=== PATIENT | female | born 1955 | race Caucasian/White ===

== ENCOUNTER → 2017-10-01 10:07 | Outpatient (CLI) | payer MEDICARE, MEDICAID, SELFPAY ==
[2017-10-01 11:21] LABS: Alanine Aminotransferase 25 U/L (12-78); Albumin/Globulin Ratio 1.3 (1.1-1.8); Alkaline Phosphatase 67 U/L (46-116); Aspartate Amino Transferase 11 U/L (15-37); Bilirubin,Total 0.4 mg/dL (0.2-1.0); Blood Urea Nitrogen 14 mg/dL (7-18); Calcium 9.4 mg/dL (8.5-10.1); Carbon Dioxide 29 mmol/L (21.0-32.0); Chloride 106 mmol/L (98-107); Chol/HDL Ratio 2.3 (1-3.5); Cholesterol 165 mg/dL (140-200); Creatinine,Serum 0.67 mg/dL (0.55-1.02); Estimated Glomerular Filt Rate 89 ml/min (>60); GFR (African American) 108 ML/MIN (>60); Globulin 3.2 gm/dl (1.3-3.2); Glucose 100 mg/dL (74-106); HDL Cholesterol 72 mg/dL (29-89); LDL Cholesterol 56 mg/dL (0-130); Sodium 143 mmol/L (136-145); Thyroid Stimulating Hormone 4.87 uIU/ml (0.358-3.740); Total Protein,Serum 7.2 gm/dL (6.4-8.2); Triglycerides 183 mg/dL (30-200); VLDL Cholesterol 37 mg/dL (0-40)
== END ==
PROVIDERS: PCP Pain Medicine Interventional Pain Medicine; Visit Provider Physician Assistant
DX: E78.5 Hyperlipidemia, unspecified (principal); I25.10 Atherosclerotic heart disease of native coronary artery without angina pectoris
CPT/HCPCS: 36415; 80053; 80061; 84443

== ENCOUNTER → 2018-05-08 09:27 | Outpatient (CLI) | payer MEDICARE, MEDICAID, SELFPAY ==
--- NOTE | 2018-05-08 09:36 | CI_ITS ---
Cerebrovascular Exam Indications: 433.10 Occlusion/stenosis of carotid artery without cerebral infarction. IMPRESSIONS 1. The bilateral vertebral arteries are patent with normal antegrade flow. 2. Study suggests 20-49%(LOWER END OF SCALE)stenosis involving the right internal carotid artery. 3. Study suggests less than 20% stenosis involving the left internal carotid artery. Disease progression from the study of 10-Jul-2016. Labs, prior tests, procedures, and surgery: Left endarterectomy. Labs, prior tests, procedures, and surgery: Left endarterectomy. Carotid duplex study. Complete study and Doppler flow study including spectral analysis, color and ko scale imaging. Location: Vascular laboratory. Patient status: Outpatient. Tables: Arterial flow: + +--------+--------+ Location V jacqueline V ed + +--------+--------+ Right CCA - proximal 88cm/s 23.6cm/s + +--------+--------+ Right CCA - distal 91.1cm/s 29.9cm/s + +--------+--------+ Right ECA 81.7cm/s -------- + +--------+--------+ Right ICA - proximal 91.1cm/s 25.9cm/s + +--------+--------+ Right ICA - mid 123cm/s 33cm/s + +--------+--------+ Right ICA - distal 85.6cm/s 29.9cm/s + +--------+--------+ Right vertebral 51.1cm/s -------- + +--------+--------+ Left CCA - proximal 99cm/s 29.9cm/s + +--------+--------+ Left CCA - distal 92.7cm/s 31.4cm/s + +--------+--------+ Left ECA 49.5cm/s -------- + +--------+--------+ Left ICA - proximal 56.6cm/s 16.5cm/s + +--------+--------+ Left ICA - mid 77.8cm/s 27.5cm/s + +--------+--------+ Left ICA - distal 84.9cm/s 31.4cm/s + +--------+--------+ Left vertebral 50.3cm/s -------- + +--------+--------+ Velocity ratios: + + + + + + Right, V sys Right, V ed Left, V sys Left, V ed + + + + + + Max ICA/dist CCA 1.35 1.1 0.92 1 + + + + + + (Report amended ) Electronically signed by: Armando Menendez [id number]
== END ==
PROVIDERS: Family Provider Family Medicine; PCP Family Medicine; Visit Provider Physician Assistant
DX: I65.23 Occlusion and stenosis of bilateral carotid arteries (principal)
CPT/HCPCS: 93880

== ENCOUNTER → 2018-05-12 10:56 | Outpatient (CLI) | payer MEDICARE, MEDICAID, SELFPAY ==
[2018-05-12 13:18] LABS: Alanine Aminotransferase 19 U/L (12-78); Albumin/Globulin Ratio 1.3 (1.1-1.8); Alkaline Phosphatase 63 U/L (46-116); Anion Gap 13.2 mEq/L (5-15); Aspartate Amino Transferase 10 U/L (15-37); Bilirubin,Total 0.4 mg/dL (0.2-1.0); Blood Urea Nitrogen 15 mg/dL (7-18); Calcium 9.5 mg/dL (8.5-10.1); Carbon Dioxide 29 mmol/L (21.0-32.0); Chloride 104 mmol/L (98-107); Chol/HDL Ratio 2.5 (1-3.5); Cholesterol 184 mg/dL (140-200); Estimated Glomerular Filt Rate 85 ml/min (>60); GFR (African American) 102 ML/MIN (>60); Globulin 3.1 gm/dl (1.3-3.2); Glucose 89 mg/dL (74-106); HDL Cholesterol 73 mg/dL (29-89); LDL Cholesterol 72 mg/dL (0-130); Potassium 4.2 mmoL/L (3.5-5.1); Sodium 142 mmol/L (136-145); Thyroid Stimulating Hormone 3.16 uIU/ml (0.358-3.740); Total Protein,Serum 7.1 gm/dL (6.4-8.2); Triglycerides 195 mg/dL (30-200); VLDL Cholesterol 39 mg/dL (0-40)
== END ==
PROVIDERS: PCP Family Medicine; Visit Provider Physician Assistant
DX: I25.10 Atherosclerotic heart disease of native coronary artery without angina pectoris (principal); I10 Essential (primary) hypertension; E78.5 Hyperlipidemia, unspecified; I45.81 Long QT syndrome
CPT/HCPCS: 36415; 80053; 80061; 83735; 84443; 93005

== ENCOUNTER → 2018-07-29 12:55 | Outpatient (CLI) | payer MEDICARE, MEDICAID, SELFPAY | PROVIDERS: Visit Provider Physician Assistant | DX: I25.10 Atherosclerotic heart disease of native coronary artery without angina pectoris (principal) | CPT/HCPCS: 93005 ==

== ENCOUNTER → 2019-04-06 10:27 | Outpatient (CLI) | payer MEDICARE, SELFPAY ==
--- NOTE | 2019-04-06 10:34 | XR_ITS ---
PROCEDURE: XR CHEST 2V CLINICAL HISTORY: S/P FALL, RT RIB PAIN COMPARISON: CXR CHEST(2 VIEWS-NOT PORTABLE) from 09/27/2015 CXR CHEST(2 VIEWS-NOT PORTABLE) from 08/03/2016 CXR CHEST(2 VIEWS-NOT PORTABLE) from 09/20/2016 XR RIBS RT 2V from 04/06/2019 FINDINGS: The cardiomediastinal silhouette and pulmonary vascularity are within normal limits. There are cluster of calcified nodules in the right lung base which are unchanged. No lobar consolidation or collapse. No evidence of pneumothorax No acute bony abnormalities. IMPRESSION: No acute findings. Dictated by: Armando Menendez MD 04/06/2019 10:59 Signed by: <Electronically signed by Armando Menendez MD in [place]> 04/06/2019 10:59
--- NOTE | 2019-04-06 10:34 | XR_ITS ---
PROCEDURE: XR RIBS RT 2V CLINICAL INDICATION: Chest pain, recent fall with injury and pain COMPARISON: No exams were available for comparison FINDINGS: A frontal view of the chest shows no acute finding. Multiple views of the right ribs were obtained. No acute findings. Surgical clips are present in the left neck. There are coronary artery stents noted IMPRESSION: No acute findings. Dictated by: Armando Menendez MD 04/06/2019 10:58 Signed by: <Electronically signed by Armando Menendez MD in [place]> 04/06/2019 11:00
== END ==
PROVIDERS: PCP Family Medicine; Visit Provider Family Medicine
DX: R07.81 Pleurodynia (principal); W19.XXXA Unspecified fall, initial encounter
CPT/HCPCS: 71046; 71100

== ENCOUNTER → 2019-07-14 12:20 | Outpatient (CLI) | payer OTHER, SELFPAY ==
--- NOTE | 2019-07-14 12:30 | XR_ITS ---
PROCEDURE: XR HUMERUS RT CLINICAL INDICATION: RT humerus fracture; do NOT remove brace COMPARISON: No exams were available for comparison FINDINGS: There is a comminuted fracture of the mid shaft the humerus with moderate valgus angulation at the fracture site. There is a small butterfly fragment sitting at the apex of the angulated fracture. There is a semiopaque cast around the dual fracture fragment. There is healthy callus formation at the fracture site suggesting this is a non recent fracture or possibly fracture through a previous fracture site. The humeral head appears intact and the supracondylar humerus appear normal. IMPRESSION: Comminuted angulated fracture mid shaft right humerus Dictated by: Dr. Mann Lopez MD 07/14/2019 17:[address] Mann Lopez MD in [place] 07/14/2019 17:37
== END ==
PROVIDERS: PCP Family Medicine; Visit Provider Orthopaedic Surgery
DX: S42.301A Unspecified fracture of shaft of humerus, right arm, initial encounter for closed fracture (principal)
CPT/HCPCS: 73060

== ENCOUNTER → 2019-07-21 14:03 | Outpatient (CLI) | payer OTHER, SELFPAY ==
--- NOTE | 2019-07-21 14:10 | XR_ITS ---
PROCEDURE: XR HUMERUS RT CLINICAL INDICATION: humerus fracture fu IN SPLINT Follow-up fracture COMPARISON: XR HUMERUS RT from 07/02/2019 XR HUMERUS RT from 07/14/2019 FINDINGS: There is a healing mid shaft humeral fracture. Developing callus formation is noted. There is minimal lateral angulation and minimal medial displacement of the distal fracture fragment. IMPRESSION: Healing mid shaft humeral fracture Dictated by: Armando Menendez MD 07/21/2019 15:46 Electronically signed by Armando Menendez MD in [place] 07/21/2019 15:46
== END ==
PROVIDERS: PCP Family Medicine; Visit Provider Orthopaedic Surgery
DX: S42.301A Unspecified fracture of shaft of humerus, right arm, initial encounter for closed fracture (principal)
CPT/HCPCS: 73060

== ENCOUNTER → 2019-08-16 12:57 | Outpatient (CLI) | payer OTHER, SELFPAY ==
--- NOTE | 2019-08-16 13:06 | XR_ITS ---
PROCEDURE: XR HUMERUS RT CLINICAL INDICATION: right humerus fracture, out of brace Follow-up fracture COMPARISON: XR HUMERUS RT from 07/02/2019 XR HUMERUS RT from 07/14/2019 XR HUMERUS RT from 07/21/2019 FINDINGS: There is a healing mid shaft humeral fracture with developing callus formation. There is slight increase in dorsal and medial angulation of the distal fracture fragment. Fracture line is still visible. No significant displacement. IMPRESSION: Increasing callus formation of the midshaft humeral fracture with some increase in dorsal and medial angulation of the distal fracture fragment Dictated by: Armando Menendez MD 08/16/2019 19:55 Electronically signed by Armando Menendez MD in [place] 08/16/2019 19:55
== END ==
PROVIDERS: PCP Family Medicine; Visit Provider Orthopaedic Surgery
DX: S42.301A Unspecified fracture of shaft of humerus, right arm, initial encounter for closed fracture (principal)
CPT/HCPCS: 73060

== ENCOUNTER → 2019-10-06 13:49 | Outpatient (CLI) | payer OTHER, SELFPAY ==
--- NOTE | 2019-10-06 13:54 | XR_ITS ---
PROCEDURE: XR HUMERUS RT CLINICAL INDICATION: right humerus fracture fu COMPARISON: XR HUMERUS RT from 07/02/2019 XR HUMERUS RT from 07/14/2019 XR HUMERUS RT from 07/21/2019 XR HUMERUS RT from 08/16/2019 FINDINGS: Midshaft humeral fracture is once again noted. The fracture is nondisplaced. There is prominent callus formation about the fracture site. There is mild medial angulation of the distal fracture fragment not significantly changed. Other findings:None. IMPRESSION: No change healing mid shaft humeral fracture with medial angulation of the distal fracture fragment Dictated by: Armando Menendez MD 10/06/2019 15:49 Electronically signed by Armando Menendez MD in [place] 10/06/2019 15:49
== END ==
PROVIDERS: PCP Family Medicine; Visit Provider Orthopaedic Surgery
DX: S42.301A Unspecified fracture of shaft of humerus, right arm, initial encounter for closed fracture (principal)
CPT/HCPCS: 73060

== ENCOUNTER → 2020-05-30 12:12 | Outpatient (CLI) | payer MEDICARE, SELFPAY ==
--- NOTE | 2020-05-30 12:25 | XR_ITS ---
PROCEDURE: XR CERVICAL SPINE 5V CLINICAL INDICATION: LT SIDE NECK PAIN COMPARISON: No exams were available for comparison FINDINGS: There is mild diffuse levo scoliotic curvature of the cervical thoracic junction. C1 through C7 appear intact. There is mild anterior osteophytic spurring at the C5-6 and C6-7 levels with mild disc space narrowing at C5-6 level. Oblique films show mild neural foraminal narrowing at the C5-6 level right-side likely secondary to spurring of the uncinate joints. There are several surgical clips just lateral to the mid cervical spine left side. The prevertebral soft tissues are normal and the odontoid is normal. IMPRESSION: Mild degenerate disc disease C5-6 and C6-7 with mild neural foraminal narrowing right-sided C5-6 Dictated by: Dr. Mann Lopez MD 05/30/2020 12:53 Dr. Mann Lopez MD in [place] 05/30/2020 12:53
== END ==
PROVIDERS: PCP Family Medicine; Visit Provider Family Medicine
DX: M54.2 Cervicalgia (principal)
CPT/HCPCS: 72050

== ENCOUNTER → 2022-12-18 09:48 | Outpatient (CLI) | payer MEDICARE, SELFPAY ==
--- NOTE | 2022-12-18 09:53 | MM_ITS ---
PROCEDURE INFORMATION: Exam: MG Bilateral Screening 3D Mammography Exam date and time: 12/18/2022 9:54 AM Age: 66 years old Clinical indication: Screening examination TECHNIQUE: Imaging protocol: Bilateral Screening tomosynthesis and 2D mammography including computer-aided detection (CAD) when performed. COMPARISON: 1. MG SCREENING MAMMO DIGITAL W/ CAD 02/28/2016 11:30 AM 2. MG UTE BILATERAL SCREENING 02/28/2016 11:30 AM FINDINGS: MAMMOGRAPHY: Breast composition: There are scattered areas of fibroglandular density. Mass: None. Architectural distortion: None. Calcifications: No suspicious calcifications. Asymmetric density: None. Skin thickening: None. Axillary adenopathy: None. IMPRESSION: No mammographic evidence of malignancy. Annual screening is recommended unless otherwise clinically indicated. ASSESSMENT: BI-RADS Category 1: Negative
== END ==
PROVIDERS: PCP Family Medicine; Visit Provider Family Medicine
DX: Z12.31 Encounter for screening mammogram for malignant neoplasm of breast (principal)
CPT/HCPCS: 77063; 77067

== ENCOUNTER 2023-01-03 10:42 | Emergency (ER) | payer MEDICARE, SELFPAY ==
[2023-01-03 11:00] VITALS: BP 122/83; PULSE 61; RESP 17; TEMP 36.7; O2SAT 98; BMI 21.0
--- NOTE | 2023-01-03 11:02 | XR_ITS ---
FINAL REPORT CLINICAL HISTORY: SPLINTER IN THE BOTTOM OF GREAT TOE COMPARISON: None FINDINGS: Left foot: Three views of the left foot were obtained. There is no acute fracture or dislocation. The joint spaces are intact. There is no soft tissue abnormality. Mild degenerative changes are noted. No evidence of a radiopaque foreign body is noted. IMPRESSION: No acute bony abnormality. Reviewed, Interpreted and Dictated by Joseph Prado III, MD Transcribed by Zoë Mauro Authenticated and [facility]
--- NOTE | 2023-01-03 12:03 | EXP.UTC ---
Discharge Plan Disposition Patient Disposition: Home, Self-Care Condition: Good Prescriptions Prescriptions: New ciprofloxacin HCl [Cipro] 500 mg tablet 500 mg PO BID Qty: 10 0RF No Action hydrocodone-acetaminophen 5-325 mg tablet 1 tab PO Q4-6H PRN (Reason: pain) Qty: 30 0RF nitroglycerin 0.4 MG tablet, sublingual 0.4 mg PO Q5MINP PRN (Reason: Angina) aspirin 81 MG tablet,chewable 81 mg PO DAILY diltiazem HCl 120 capsule,extended release 24hr 120 mg PO DAILY Label Comments: ezetimibe 10 tablet 10 mg PO DAILY Label Comments: rosuvastatin 20 MG tablet 20 mg PO DAILY ranolazine 1,000 tablet extended release 12 hr 1,000 mg PO DAILY Label Comments: coenzyme Q10 50 MG tablet,chewable 50 mg PO DAILY Referrals Follow up/Referrals: Stewart Lanza MD [Primary Care Provider] - See instructions Activity Restrictions/Add. Instructions Additional Instructions/Restrictions: Keep clean and dry Monitor for signs of infection F/U with Dr Lanza Clinical Impressions Clinical Impression: Splinter of toe of left foot Instructions Patient Instructions: DI for Splinter Removal Discharge ED Provider: Shayna Barnes [facility] HPI General Stated complaint: AO 01/02 possible splinter in left big toe Mode of Arrival: Ambulatory Source of Information: Patient Limitations: No Limitations Time Seen by Provider: 01/03/23 12:03 Description of Symptoms (Recalled from Triage Doc. by RN): PATIENT C/O LARGE WOODEN SPLINTER IN LEFT GREAT TOE LAST NIGHT HEENT Symptoms (Recalled from RN notes): No Resp Symptoms (Recalled from RN notes): No Skin Symptoms (Recalled from RN notes): Yes MS Symptoms (Recalled from RN notes): No Functional Status (Recalled from RN notes): WNL History of Present Illness Provider Complaint: Patient was walking on deck last night and got a splinter in the bottom of her big toe. She was unable to get it out at home. It is painful. It is not bleeding and does not appear to be infected. She is not diabetic. Onset (ago): day(s) Location: left and lower extremity Radiation: non-radiation Severity: mild Severity scale (1-10): 2 Quality: burning Consistency: constant Relieving factors: none Exacerbating factors: none Associated symptoms: denies other symptoms Treatments prior to arrival: none Related Data Home Medications Medication Instructions Recorded Confirmed aspirin 81 mg chewable tablet 81 mg PO DAILY Heart disease 11/23/17 10/06/19 diltiazem HCl 120 mg 120 mg PO DAILY coronary artery 11/23/17 10/06/19 capsule,extended release 24 hr spasms ezetimibe 10 mg tablet 10 mg PO DAILY Cholesterol 11/23/17 10/06/19 nitroglycerin 0.4 mg sublingual 0.4 mg PO Q5MINP PRN Angina 11/23/17 10/06/19 tablet ranolazine 1,000 mg 1,000 mg PO DAILY angina 11/23/17 10/06/19 tablet,extended release,12 hr rosuvastatin 20 mg tablet 20 mg PO DAILY Cholesterol 11/23/17 10/06/19 coenzyme Q10 50 mg chewable tablet 50 mg PO DAILY joint pain 05/07/18 10/06/19 Previous Rx's Medication Instructions Recorded hydrocodone 5 mg-acetaminophen 325 1 tab PO Q4-6H PRN pain #30 tabs 07/02/ mg tablet ciprofloxacin HCl 500 mg tablet 500 mg PO BID #10 tabs 01/03/23 (Cipro) Allergies Allergy/AdvReac Type Severity Reaction Status Date / Time atorvastatin [From LIPITOR] Allergy Mild Verified 10/06/19 14:20 lisinopril [LISINOPRIL] Allergy Mild Verified 10/06/19 14:20 morphine [MORPHINE] Allergy Unknown Verified 10/06/19 14:20 Opioids - Morphine Analogues Allergy Unknown Verified 10/06/19 14:20 [OPIOIDS - MORPHINE ANALOGUES] Worker's Comp Is this a Worker's Comp case?: No [facility] Disclaimer: The information contained in this section may have been updated after the patient was seen, as this information can be updated by other users. Medical History (Updated 01/03/23 @ 12:16 by SHERICE Hines) Hyperl
[2023-01-03 12:14] VITALS: BP 122/83; PULSE 61; RESP 17; TEMP 36.7; O2SAT 98
== END 2023-01-03 12:26 | disposition home or self-care (01) ==
PROVIDERS: Emergency Provider Physician Assistant; PCP Family Medicine
DX: S90.452A Superficial foreign body, left great toe, initial encounter (principal); I10 Essential (primary) hypertension; E78.5 Hyperlipidemia, unspecified; W45.8XXA Other foreign body or object entering through skin, initial encounter
CPT/HCPCS: 10120; 73630; 99204; 99212; 99213; G0463

== ENCOUNTER 2023-10-30 14:00 | Outpatient (RCR) | payer MEDICARE, MEDICAID, SELFPAY ==
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
== END 2023-10-30 15:00 | disposition home or self-care (01) ==
LOC: PT 14:00
PROVIDERS: Visit Provider Family Medicine
DX: M54.2 Cervicalgia (principal)
CPT/HCPCS: 20561; 97010; 97014; 97163; 97535; G0283

== ENCOUNTER 2024-04-29 09:37 | Outpatient (CLI) | payer MEDICARE, MEDICAID, SELFPAY ==
--- NOTE | 2024-04-29 09:38 | CT_ITS ---
FINAL REPORT CLINICAL HISTORY: R/O sinus issues FINDINGS: There is mucoperiosteal thickening of the maxillary sinuses, left greater than right. Soft tissue is seen bridging the left ostiomeatal unit. There is no fracture. There are no air-fluid levels. Bilateral cochlear implants are noted. IMPRESSION: Bilateral chronic maxillary sinusitis with obstruction of the left OMU. Reviewed, Interpreted and Dictated by Deep Schneider MD Transcribed by Peyton Lester Authenticated and [facility]
== END 2024-04-29 23:59 | disposition home or self-care (01) ==
PROVIDERS: PCP Family Medicine; Visit Provider Nurse Practitioner
DX: H04.559 Acquired stenosis of unspecified nasolacrimal duct (principal)
CPT/HCPCS: 70486

== ENCOUNTER 2024-09-15 15:10 | Outpatient (CLI) | payer MEDICARE, MEDICAID, SELFPAY ==
--- NOTE | 2024-09-15 15:21 | XR_ITS ---
FINAL REPORT CLINICAL HISTORY: PAIN IN RT KNEE COMPARISON: None FINDINGS: RIGHT KNEE Three views demonstrate no acute fracture or dislocation. There is moderate medial compartment joint space narrowing. Prominent osteophytes are noted at the medial joint margin. Osteophytes are seen along the undersurface of the patella. There is a small joint effusion. No acute soft tissue abnormality is seen. IMPRESSION: Degenerative changes and small joint effusion without acute bony abnormality. Reviewed, Interpreted and Dictated by Deep Schneider MD Transcribed by Pina Groves Authenticated and [facility]
== END 2024-09-15 23:59 | disposition home or self-care (01) ==
LOC: RAD 15:12
PROVIDERS: PCP Family Medicine; Visit Provider Family Medicine
DX: M25.561 Pain in right knee (principal)
CPT/HCPCS: 73562

== ENCOUNTER 2025-01-27 20:07 | Emergency (ER) | payer MEDICARE, MEDICAID, SELFPAY ==
--- OUTSIDE RECORDS SUMMARY | 2023-10-03 23:38 | XMS_ITS | Encounter Summary ---
Author Organization [employer] Address [address] [place] [address] Care Team Providers Care Custom Tailor Name Role Phone Trupti Pelayo APRN Unavailable [phone] Kierra Roca MD Unavailable [phone] Stewart Lanza MD Primary Care Provider [phone] Encounter Details Date Type Department Care Team (Late st Contact Info) Description 10/03/2023 10:38 PM EST Hospital Encounter [place] [address] Interventional [address] 1 [place] [address] Erin Johnson MD [address] [facility], [facility] [address] [place] [address] Social History Tobacco Use Types [...] of Transportation (Non-Medical) Not on file 10/04/2023 Housing Stability Vital Sign Answer Cash e Recorded In the last 12 months, was t here a time when you were not able to pay the mortgage or rent on time? No 10/04/2023 In the last 12 months, how many places have you lived? 1 10/04/2023 In the last 12 months, was t here a time when you did not have a steady place to sleep or slept in a custodial (including now)? No 10/04/2023 Interpersonal Safety Answer Date Record ed Family or friends hurt you Not on file 08/29 Family or friends insult you Not on file Family or friends threaten you Not on file 0 08/29/2023 Family or friends scream or curse at you Not on file 08/29/2023 Housing Stability Answer Date Recorded Living situation today Not on file Living situation problems Not on file 2023 Family and Community Support Answer Cash e Recorded Help with Day to Day Activities Not on file 08/29/2023 Feeling Lonely or Isolated Not on file 08/29 Educational Attainment Answer Date Clovis rded Speak language other than Tunisian at home Not on file 08/29/2023 Want help with school or training Not on file 08/29/2023 Depression Answer Date Recorded PHQ-2 Risk Not on file 08/29/2023 Disabilities Answer Date Recorded Difficulty concentrating Not on file 024 Difficulty doing errands alone Not on file 0 08/29/2023 Substance Use Answer Date Recorded Used [...] on filedocumented in this encounter Care Teams Custom Tailor Relationship Specialty Start Date End Date Stewart Lanza MD [address] [place] [facility] [address] [place] [address] PCP - General Family Medicine 06/13/23 Trupti Pelayo APRN [address] [facility] [address] [place] [address] Cardiology 04/08/23 Kierra Roca MD [address] [facility] [place] [address] Interventional Cardiology 04/08/23 documented as of this encounter
--- OUTSIDE RECORDS SUMMARY | 2024-09-15 10:15 | XMS_ITS ---
Author Organization [facility] Address [address] [place] [phone] Care Team Providers Care All Around Patternmaker Name Role Phone Stewart Lanza Unavailable [phone] Allergies Allergen (clinical drug ingredient) Drug/Non Drug [...] Interpretation:Normal Performing Lab: Notes/Report: Test performed by [facility] [address] [place] [address] , [address], [place] [address] Joey Rock MD, Recoating Machine Operator CLIA: [id number] Sodium 141 135-145 mmol/L Potassium 4.0 3.5-5.3 [...] 0.5 <0.2-1.2 mg/dL A/G Ratio 1.8 1.1-2.5 O-Y-Ujpkskad Protein (CRP) Reviewed date:09/22/2024 12:55:57 PM Interpretation:Normal Performing Lab: Notes/Report: Test performed by [facility] [address] [place] [address] , [place] [address] Joey Rock MD, Recoating Machine Operator CLIA: [id number] C-Reactive Protein (CRP) 0.04 <0.50 mg/dL P-Sed Rate (ESR) Reviewed date:09/22/2024 12:55:57 PM Interpretation:Normal Performing Lab: Notes/Report: Test performed by [facility] [address] [place] [address] , [place] [address] Joey Rock MD, Recoating Machine Operator CLIA: [id number] Erythrocyte Sedimentation Ra te (ESR), Automated 9 <31 mm/hr P-TSH reflex to FT4 Reviewed date:09/22/2024 12:55:57 PM Interpretation:Normal Performing Lab: Notes/Report: Test performed by [facility] [address] [place] [address] , [address], [place] [address] Joey Rock MD, Recoating Machine Operator CLIA: [id number] TSH reflex to FT4 1.58 0.43-5.25 mU/L P-Vitamin D 25-Hydroxy Reviewed date:09/22/2024 12:55:57 PM Interpretation:Normal Performing Lab: Notes/Report: Test performed by [facility] [address] [place] [address] , [address], [place] [address] Joey Rock MD, Recoating Machine Operator CLIA: [id number] Vitamin D 25-Hydroxy 54.7 30.0-100.0 ng/mL Interpretation [...] in right knee ( M25.561) [facility] Referring Provider First Name Stewart Referring Provider Last Name Myla Referring Provider Speciality Family [facility] ctice Referred Provider Stuart Preciado Referred Provider Specialty Orthopedic S urgery General Notes Rosibel Moncada 9:10:30 AM > 09/23/2024 at 10:45am; cannot leave vm for patient; patient informed Referral Priority Routine REASON FOR VISIT trouble walking; knee pain Medications Medication SIG (Take, Route, Frequency, Duration) Notes Start Date End Date Status Aspirin 81 MG 1 tab(s) orally once a day for 30 day(s) Active Co Q-10 200 MG as directed Orally Active Atorvastatin Calcium 40 MG 1 tablet Oral ly Once a day for 90 days 11/12/2023 Active Vitamin D3 125 MCG (5000 UT) 1 tablet on the tongue and allow to dissolve Orally Once a day Active Ezetimibe 10 MG 1 tab(s) orally once a day for 90 days Active Metoprolol Succinate ER 25 MG 1 tablet Orally Once a day for 90 days Active Ranolazine ER 1000 MG 1 tab(s) orally 2 times a day for 90 days Active Vital Signs Blood pressure systolic 140 mm Hg 09/15/19 25 Blood pressure diastolic 80 mm Hg 025 Heart Rate 92 /min 09/15/2024 Height 62 in 09/15/2024 Weight 98.8 lbs 09/15/2024 BMI 18.07 kg/m2 09/15/2024 Encounters Encounter Location Date Provider Diagnosis [facility] [address] [facility] [address] [place] [phone] 09/15/2024 Stewart Lanza Pain in right knee M25.561 ; Weight loss R63.4 ; Vitamin D deficiency E55.9 and Coronary artery disease involving [place] coronary artery of [place] heart without angina pectoris I25.10 Assessments Encounter Date Diagnosis (ICD Code) Assessment Notes Treatment Notes Treatment Clinical Notes Section Notes 09/15/2024 Pain in right knee (ICD-10 - M25.561) 09/15/2024 Weight loss (ICD-10 - R63.4) 09/15/2024 Vitamin D deficiency (ICD-10 - E55.9) 09/15/2024 Coronary artery disease involving [place] coronary artery of [place] heart without angina pectoris (ICD-10 - I25.10) Plan Of Treatment Medication Medication Name Sig Start Date Stop Date Notes Ranolazine ER 1000 MG 1 tab(s) orally 2 times a day for 90 days Referrals Referral Date Details 09/15/2024 09/15/2024, Stuart neri Next Appt Details Follow Up: via phone to repo rt progress, Reason: Provider Name:Stewart doran, 01/28/2025 03:15:00 PM, [address] [facility] [address], [place], [place], [id number], Provider Name:Stewart doran, 05/20/2025 09:45:00 AM, [address], [place], [place], [phone], Progress Notes * ROSHAN PYLEPARESHB:1955 (69 yo F)Acc No.[id number]:09/15/2024 Progress Notes Patient: COMPA SEPULVEDA Provider: Julieta Lanza M.D. :1955 A ge:68 Y S ex:Female Date:09/15/2024 Address:[address] [place], [place] [phone] Subjective: * Chief Complaints: * 1 . [...] enies Past Hospitalization. * Family History: C hilen: alive, diagnosed with Diabetes. F ather: diagnosed [...] G eneral Examination: General Appearance: N AD. Heart: R SR. Lungs: c lear to auscultation. Extremities: a rthritic changes at right knee, minimal joint line tenderness, full ROM. Assessment: * Assessment: 1. P ain in right knee - M25.561 (Primary) 2 . W eight loss - R63.4 ? 3 . V itamin D deficiency - E55.9 4 . C oronary artery disease involving [place] coronary artery of [place] heart without angina pectoris - I25.10 Plan: [...] 4:26:4 3 PM >See phone encounter ?LAB: C-A-Jyfzvcnx Protein (CRP) (Collection Date & Time - [...] to FT4 1.58 0.43-5.25 - mU/L * AmmyBrandi 09/16/2024 4:26:4 3 PM >See phone encounter [...] 256 100 - 400 * Rosie Larios L 09/15/2024 4:02 :46 PM > 3.?Vitamin D deficiency?LAB: P-Vitamin D 25-Hydroxy (Collection Date & Time - 09/15/2024 01:45 PM)? Normal* Value Reference Range V itamin D 25-Hydroxy 54.7 30.0-100.0 - ng/mL * AmmyBrandi 09/16/2024 4:26:4 3 PM >See phone encounter 4.?Coronary artery disease involving [place] coronary artery of [place] heart without angina pectoris? Refill Ranolazine ER Tablet Extended Release 12 Hour, 1000 MG, 1 tab(s), orally, 2 times a day, 90 days, 180, Refills 1.?? * Procedure Codes: G 2211 Complex e/[place], [address] CBC WITH AUTO DIFF, 3077F SYST BP = 140 MM HG6 IT, 3079F DIAST BP 80-89 MM HG * Follow Up: v ia phone to report progress * Billing Information: * Visit Code: 26340 Office Visit, Est Pt., Level 4. * Procedure Codes: G2211 Complex e/[place]. [address] CBC WITH AUTO DIFF. 3077F SYST BP = 140 MM HG6 IT. 3079F DIAST BP 80-89 MM HG. * Electronic signature of Alicia Lanza MD on 01/27/2025 at 08:26 PM EDT Sign off status: Pending * Provider: Julieta Lanza M.D. Date: 0 09/15/2024 Generated for Cyndee mcgrath/Duncan/eTransmitting on: 0 01/27/2025 08:26 PM EDT History and Physical Notes * HPI (History [...]
--- OUTSIDE RECORDS SUMMARY | 2024-11-18 05:30 | XMS_ITS ---
Author Organization [facility] Address [address] [place], [place] [phone] Care Team Providers Care Battery Service Technician Name Role Phone Stewart Lanza Unavailable [phone] Allergies Allergen (clinical drug ingredient) Drug/Non Drug Allergy documented on EMR Reaction Allergy Type Onset Date Status lisinopril Lisinopril Unknown Drug Allergy Activ e Results Component Value Reference Range Notes P-Comprehensive Metabolic Pa shane (CMP) Reviewed date:11/19/2024 01:11:44 PM Interpretation: Normal Performing Lab: Notes/Report: Test performed by [facility] , [address], [place] [address] Joey Rock MD, Ping Pong Table Assembler CLIA: [id number] Sodium 140 135-145 mmol/L Potassium 4.2 3.5-5.3 [...] Normal Performing Lab: Notes/Report: Test performed by [facility], [address] [place] [address] , [address], [place] [address] Joey Rock MD, Ping Pong Table Assembler CLIA: [id number] Vitamin D 25-Hydroxy 49.5 30.0-100.0 ng/mL Interpretation [...] 11/18/2024 Encounters Encounter Location Date Provider Diagnosis [facility] [address] [facility] [address] [place] [address], [place] [id number] 11/18/2024 Stewart Lanza Primary hypertension I10 ; Pure hypercholesterolemia E78.00 ; Vitamin D deficiency E55.9 ; Coronary artery disease involving [place] coronary artery of [place] heart without angina pectoris I25.10 ; Carotid artery disease without cerebral infarction I77.9 and BMI less than 19,adult Z68.1 Assessments Encounter Date Diagnosis (ICD Code) Assessment Notes Treatment Notes Treatment Clinical Notes Section Notes 11/18/2024 Primary hypertension (ICD-10 - I10) 11/18/2024 Pure hypercholesterolemia (ICD-10 - E78.00) 11/18/2024 Vitamin D deficiency (ICD-10 - E55.9) 11/18/2024 Coronary artery dise ase involving [place] coronary artery of [place] heart without angina pectoris (ICD-10 - I25.10) [...] Follow Up: 6 Months, Reason: Provider Name:Stewart doran, 01/28/2025 03:15:00 PM, [address] [place] [address], [address], [place], [place], [id number], Provider Name:Stewart doran, 05/20/2025 09:45:00 AM, [address] [place] [address], [address], [place], [place], [phone], Progress Notes * PYLEARABELLAB:1955 (69 yo F)Acc No.[id number]:11/18/2024 Progress Notes Patient: COMPA SEPULVEDA Provider: Julieta Lanza M.D. :1955 A ge:68 Y S ex:Female Date:11/18/2024 Address:[address] [place] [address], [id number] Subjective: * Chief Complaints: * 1 . [...] C ardiology: General Appearance: p leasant, NAD. HEENT: u nremarkable. Heart sounds: R RR, normal S1, S2. Lungs: c lear, no rales or wheezes. Extremities: n o leg edema. Assessment: * Assessment: 1. P rimary hypertension - I10 (Primary) 2 . P ure hypercholesterolemia - E78.00 3 . V itamin D deficiency - E55.9 4 . C oronary artery disease involving [place] coronary artery of [place] heart without angina pectoris - I25.10 & #160; 5 . C arotid artery disease without cerebral infarction - I77.9 6 . B IA less than 19,adult - Z68.1 Plan: * [...] informed of results 4.?Coronary artery disease involving [place] coronary artery of [place] heart without angina pectoris? Continue Aspirin Tablet Delayed Release, 81 MG, 1 tab(s), orally, once a day;?Continue Ranolazine ER Tablet Extended Release 12 Hour, 1000 MG, 1 tab(s), orally, 2 times a day.?? * Procedure Codes: G 2211 Complex e/m visit add on, 3075F SYST BP GE 130 - 139MM HG, 3079F DIAST BP 80-89 MM HG * Follow Up: 6 Months * Billing Information: * Visit Code: 45996 Office Visit, Est Pt., Level 4. * Procedure Codes: G2211 Complex e/m visit add on. 3075F SYST BP GE 130 - 139MM HG. 3079F DIAST BP 80-89 MM HG. * Electronic signature of Alicia Lanza MD on 01/27/2025 at 08:25 PM EDT Sign off status: Pending * Provider: Julieta Lanza M.D. Date: 0 11/18/2024 Generated for Cyndee mcgrath/Duncan/Brendaitting on: 0 01/27/2025 08:25 PM EDT History and Physical Notes * [...]
--- OUTSIDE RECORDS SUMMARY | 2024-12-22 07:45 | XMS_ITS ---
Author Organization [facility] Address [address] [facility] [address] [place] [phone] Care Team Providers Care Junior Systems Administrator Name Role Phone Myla Stewart Unavailable [phone] Allergies Allergen (clinical drug ingredient) Drug/Non Drug [...] once a day for 90 days Active Atorvastatin Calcium 40 MG 1 tablet Oral ly Once a day for 90 days Active [...] Location Date Provider Diagnosis [facility] [address] [place] [phone] 12/22/2024 Stewart Lanza Chest wall pain R07. [...] Reason: Provider Name:Stewart doran, 01/28/2025 03:15:00 PM, [address] [place] [address], [address], [place], [place], [id number], Provider Name:Stewart doran, 05/20/2025 09:45:00 AM, [address] [place] [address], [facility] [address], [place], [place], [phone], Progress Notes * ROSHAN PYLEPARESHB:1955 (69 yo F)Acc No.[id number]:12/22/2024 Progress Notes Patient: COMPA SEPULVEDA Provider: Julieta Lanza M.D. :1955 A ge:68 Y S ex:Female Date:12/22/2024 Address:[address] [place], [place] [phone] Subjective: * Chief Complaints: * 1 . [...] 2014, cochlear implant x 2 . * Family History: C kerline: alive, diagnosed [...] G eneral Examination: General Appearance: N AD. Chest: n ormal shape and expansion, tenderness to palpation along the sternum and left anterior chest wall. Heart: R SR. Lungs: c lear to auscultation. Assessment: * Assessment: [...] progress * Billing Information: * Visit Code: 67001 Office Visit, Est Pt., Level 3. * Procedure Codes: G2211 Complex e/m visit add on. 3075F SYST BP GE 130 - 139MM HG. 3079F DIAST BP 80-89 MM HG. * Electronic signature of Alicia Lanza MD on 01/27/2025 at 08:26 PM EDT Sign off status: Pending * Provider: Julieta Lanza M.D. Date: 0 12/22/2024 Generated for Cyndee mcgrath/Duncan/Brendaitting on: 0 01/27/2025 08:26 PM EDT History [...]
--- NOTE | 2025-01-27 20:15 | ECG_ITS ---
APPROVED REPORT Exam: Resting ECG HR:72 bpm ECG Measurements Heart Rate 72 AXES FL 164 P 2 QRSd 86 QRS 36 QT 399 T 44 QTc 424 Conclusion SINUS RHYTHM NORMAL ECG Electronically signed by : JOSE ALFREDO FERNANDEZ, 01/27/2025 23:37:24
[2025-01-27 20:16] VITALS: BP 184/100; PULSE 78; RESP 16; TEMP 36.6; O2SAT 97; BMI 20.1
--- OUTSIDE RECORDS SUMMARY | 2025-01-27 20:26 | XMS_ITS | Clinical Summary ---
Author Organization [employer] [facility] Address [address] [place] [address] Care Team Providers Care Flash Developer Name Role Phone Trupti Pelayo APRN Unavailable [phone] Kierra Roca MD Unavailable [phone] Stewart Lanza MD Primary Care Provider [phone] Allergies Active Allergy Reactions Criticality Noted Date Comments Amlodipine 06/13/2023 Atorvastatin Low 08/16/2019 Lisinopril High 08/16/2019 Other reaction(s): Angioedema Lisinopril Swelling High 10/03/2023 Opioids - Morphine Analogues 08/16/2019 Other reaction(s): sleeps for a long time , sleeps for a long time Opioids-Meperidine And Related 06/13/2023 Medications atorvastatin (LIPITOR) 10 MG tablet Take 1 tablet (10 mg total) by mouth in the morning. 90 tablet 11/28/2022 Active ezetimibe (ZETIA) 10 mg tablet Take 1 tablet (10 mg total) by mouth in the morning. 90 tablet 11/28/2022 Active aspirin 81 MG EC tablet Take 1 tablet (81 mg total) by mouth daily. Active ranolazine (RANEXA) 1,000 mg SR tablet TAKE 1 TABLET BY MOUTH EVERY 12 HOURS 180 tablet 2 07/10/2023 Active diltiazem (DILT-XR) 120 MG 24 hr capsule Take 1 capsule (120 mg total) by mouth daily. 90 capsule 3 08/08/2023 Active aspirin 81 MG chewable tablet Take 1 tablet (81 mg total) by mouth daily. Active ezetimibe (ZETIA) 10 mg tablet Take 1 tablet (10 mg total) by mouth daily. Active Active Problems Problem Noted Date Diagnosed Date STEMI (ST elevation myocardial infarction) 10/04 Arteriosclerotic coronary artery disease 023 Carotid bruit 06/02/2023 HTN (hypertension) 06/02/2023 HLD (hyperlipidemia) 06/02/2023 Anxiety 06/02/2023 Arthritis 06/02/2023 Hypertension HLD (hyperlipidemia) Family History Medical History Relation Name Comments Heart disease Father Hypertension Father Heart disease Mother Hypertension Mother Stroke Mother Relation Name Status Comments Father Mother Social History Tobacco Use Types Packs/Day Years Used Date Smoking Tobacco: Never Smokeless Tobacco: Never Tobacco Cessation:Counseling Given: No Alcohol Use Standard Drinks/Week Comments Never 0 (1 standard drink = 0.6 oz pur e alcohol) socially PRAPARE - Transportation Answer Date Re corded [...] place to sleep or slept in a prison (including now)? No 10/04/2023 Interpersonal Safety Answer [...] Date [place] rded Speak language other than Finnish at home Not on file 08/29/2023 Want [...] on file Sexual Orientation Not on file Last Filed Vital Signs Vital Sign Reading Time Taken Comments Blood Pressure 134/88 10/06/2023 12:44 PM EST Pulse 95 10/06/2023 12:44 PM EST Temperature 36.7 C (98.1 F) 10/06/2023 12:44 PM EST Respiratory Rate 20 10/06/2023 12:44 PM EST Oxygen Saturation 96% 10/06/2023 12:44 PM EST Inhaled Oxygen Concentration - - Weight 50.8 kg (112 lb) 10/03/2023 10:23 PM EST Height 152.4 cm (5') 10/03/2023 10:23 PM EST Body Mass Index 21.87 10/03/2023 10:23 PM EST Plan of Treatment Health Maintenance Due Date Last Done Comments CT Colonography 1954 Colonoscopy 1954 Colorectal Cancer Screening 1954 DXA SCAN 1954 FOBT/FIT 1954 Fit-DNA (Cologuard) 1954 Sigmoidoscopy 1954 Depression Screening (12+) 1966 Hepatitis C Screening 1972 Shingles Vaccine (Zoster) (1 of 2) 2004 Medicare Initial AWV [id number] 07/12/2014 Respiratory Syncytial Virus (RSV) Adult or (1 - Risk 60-74 years 1-dose series) 2014 Breast Cancer Screening 02/27/2018 02/28/2016 COVID-19 VACCINE (7 - 2023-2 5 season) 2024 08/18/2023, 06/14/2022, 12/20/2021, Additional history exists [place] Risk Screening 08/11/2024 Tobacco Cessation Counseling and Screening (12+) 10/07/2024 10/07/2023 Influenza Vaccine (Season Ended) 2025 DTAP/TDAP/TD VACCINES (2 - T d or Tdap) 12/04/2026 12/04/2016 Pneumococcal 50+ years Completed 06/19/2023 Insurance MEDICARE PART [place] [address] [place] [id number] Advance Directives For more information, please contact: [phone] * Full Code (Latest Code Status on File) Date Activated Date Inactivated Comments 10/04/2023 5:46 AM 10/06/2023 5:03 PM -Attempt Res uscitation if person has no pulse and is not breathing. -If no pulse or not breathing attempt CPR/CODE. -Call Rapid Response if patient is in distress. * Full Code Date Activated Date Inactivated Comments 10/04/2023 12:45 AM 10/04/2023 5:46 AM * Full Code Date Activated Date Inactivated Comments 10/03/2023 11:00 PM 10/04/2023 12:45 AM Care Teams Flash Developer Relationship Specialty Start Date End Date Stewart Lanza MD [address] [facility] [address] [place] [address] PCP - General Family Medicine 06/13/23 Trupti Pelayo APRN [address] [facility] [address] [place] [address] Cardiology 04/08/23 Kierra Rcoa MD [address] [facility] [address] [place] [address] Interventional Cardiology 04/08/23
--- OUTSIDE RECORDS SUMMARY | 2025-01-27 20:26 | XMS_ITS | Patient Health Record ---
Author Organization [facility] Address [address] [facility] [address] [place], [place] [address] Care Team Providers Care Carpenter Packing Name Role Phone Stewart Lanza Unavailable [phone] Allergies Allergen (clinical drug ingredient) Drug/Non Drug Allergy documented on EMR Reaction Allergy Type Onset Date Status lisinopril Lisinopril Unknown Drug Allergy Activ e Results Component Value Reference Range Notes X ray : Knee, right Reviewed date:09/16/2024 09:08:38 AM Interpretation:degenerative changes and small joint effusion Performing Lab: Notes/Report: degenerative changes and small joint effusion P-Vitamin D 25-Hydroxy Reviewed date:09/22/2024 12:55:57 PM Interpretation:Normal Performing Lab: Notes/Report: Test performed by [facility] [address] [place], [place] [address] [place] , [address], [place] [address] Joey Rock MD, Supervisor [employer] CLIA: [id number] Vitamin D 25-Hydroxy 54.7 30.0-100.0 ng/mL Interpretation of Vitamin D 25 OH: < 20 ng/mL - Deficiency 20 - 29 ng/mL - Insufficiency 30 - 100 ng/mL - Sufficiency > 100 ng/mL - Super-therapeutic- toxicity may occur above this level. Clinical correlation required. P-TSH reflex to FT4 Reviewed date:09/22/2024 12:55:57 PM Interpretation:Normal Performing Lab: Notes/Report: Test performed by [facility] [address] [place] [address] , [address], [place] [address] Joey Rock MD, Supervisor [employer] CLIA: [id number] TSH reflex to FT4 1.58 0.43-5.25 mU/L P-Sed Rate (ESR) Reviewed date:09/22/2024 12:55:57 PM Interpretation:Normal Performing Lab: Notes/Report: Test performed by [facility] [address] , [address], [place] [address] Joey Rock MD, Supervisor [employer] CLIA: [id number] Erythrocyte Sedimentation Rate (ESR), Automated 9 <31 mm/hr V-A-Ytgnwuka Protein (CRP) Reviewed date:09/22/2024 12:55:57 PM Interpretation:Normal Performing Lab: Notes/Report: [facility] , [address], [place] [address] Joey Rock MD, Supervisor [employer] CLIA: [id number] C-Reactive Protein (CRP) 0.04 <0.50 mg/dL P-Comprehensive Metabolic Pa shane (CMP) Reviewed date:09/22/2024 12:55:57 PM Interpretation:Normal Performing Lab: Notes/Report: Test performed by [facility] [address] , [address], [place] [address] Joey Rock MD, Supervisor [employer] CLIA: [id number] Sodium 141 135-145 mmol/L Potassium 4.0 3.5-5.3 [...] 0.5 <0.2-1.2 mg/dL A/G Ratio 1.8 1.1-2.5 CBC Venipuncture (in house) Reviewed date:09/16/2024 09:30:57 [...] - 38 platlet 256 100 - 400 P-Vitamin D 25-Hydroxy Reviewed date:05/24/2024 11:15:23 AM Interpretation:35.2 Performing Lab: Notes/Report: Test performed by [facility] [address] [place] [address] , [address], [place] [address] Joey Rock MD, Supervisor [employer] CLIA: [id number] Vitamin D 25-Hydroxy 35.2 30.0-100.0 ng/mL Interpretation of Vitamin D 25 OH: < 20 ng/mL - Deficiency 20 - 29 ng/mL - Insufficiency 30 - 100 ng/mL - Sufficiency > 100 ng/mL - Super-therapeutic- toxicity may occur above this level. Clinical correlation required. P-Vitamin D 25-Hydroxy Reviewed date:04/07/2024 02:31:36 PM Interpretation: Normal Performing Lab: Notes/Report: Test performed by [facility] [address] [place] [address] , [address], [place] [address] Joey Rock MD, Supervisor [employer] CLIA: [id number] Vitamin D 25-Hydroxy 33.8 30.0-100.0 ng/mL Interpretation of Vitamin D 25 OH: < 20 ng/mL - Deficiency 20 - 29 ng/mL - Insufficiency 30 - 100 ng/mL - Sufficiency > 100 ng/mL - Super-therapeutic- toxicity may occur above this level. Clinical correlation required. P-Microalbumin/Creatinine, R andom Urine Sample Reviewed date:04/07/2024 02:31:36 PM Interpretation: Normal Performing Lab: Notes/Report: Test performed by [facility] [address] [place] [address] , [address], [place] [address] Joey Rock MD, Supervisor [employer] CLIA: [id number] Albumin/Creatinine Ratio, Urine 10 0-30 ug/mg Microalbumin, Urine, Random 1.7 Creatinine, Urine 165.2 P-TSH reflex to FT4 Reviewed date:04/07/2024 02:31:36 PM Interpretation: Normal Performing Lab: Notes/Report: Test performed by [facility] , [address], [place] [address] Joey Rock MD, Supervisor [employer] CLIA: [id number] TSH reflex to FT4 1.76 0.43-5.25 mU/L P-Phosphorus Reviewed date:04/07/2024 02:31:36 PM Interpretation: Normal Performing Lab: Notes/Report: [facility] , [address], [place] [address] Joey Rock MD, Supervisor [employer] CLIA: [id number] Phosphorus 3.2 2.5-4.5 mg/dL P-Magnesium Reviewed date:04/07/2024 02:31:36 PM Interpretation: Normal Performing Lab: Notes/Report: Test performed by [facility] , [address], [place] [address] Joey Rock MD, Supervisor [employer] CLIA: [id number] Magnesium 1.9 1.6-2.4 mg/dL P-Lipid Panel Reviewed date:04/07/2024 02:31:36 PM Interpretation: Normal Performing Lab: Notes/Report: [facility] [address] , [place] [address] Joey Rock MD, Supervisor [employer] CLIA: [id number] Cholesterol 173 <200 mg/dL Triglycerides 94 <150 mg/dL HDL Cholesterol 72 >39 mg/dL Cholesterol / HDL Ratio 2.40 0.00-4.44 Ratio Non-HDL Cholesterol 101 <130 mg/dL LDL Cholesterol (Calculation) 82 <130 mg/dL LDL Cholesterol Levels* Less than 100 mg/dL Optimal 100 to 129 mg/dL Near Optimal/ Above Optimal 130 to 159 mg/dL Borderline High 160 to 189 mg/dL High 190 mg/dL and above Very High * Categories as recommended by the 2004 ATPIII guidelines LDL/HDL Ratio 1.1 <3.3 Ratio LDL Cholesterol Patient History Test Date: 04/06/2024 LDL Results: 82 Units: mg/dL % Change: - P-Comprehensive Metabolic Pa shane (CMP) Reviewed date:04/07/2024 02:31:36 PM Interpretation:gluc 113 Performing Lab: Notes/Report: Test performed by [facility], [address] , [address], [place] [address] Joey Rock MD, Supervisor [employer] CLIA: [id number] Sodium 141 135-145 mmol/L Potassium 4.0 3.5-5.3 mmol/L Chloride 102 97-108 mmol/L CO2 28 22-32 mmol/L Glucose 113 65-99 mg/dL BUN 13 8-23 mg/dL Creatinine 0.87 0.50-1.00 mg/dL Calcium 10.0 8.6-10.4 mg/dL eGFR by Creatinine 72 >59 mL/min/1.73m2 Protein 7.1 6.0-8.3 g/dL Albumin 4.6 3.5-5.3 g/dL Alkaline Phosphatase 82 35-121 IU/L ALT (SGPT) 14 <5-47 IU/L AST (SGOT) 19 <5-40 IU/L Bilirubin, Total 0.9 <0.2-1.2 mg/dL A/G Ratio 1.8 1.1-2.5 P-Vitamin B12 Reviewed date:04/07/2024 02:31:36 PM Interpretation: Normal Performing Lab: Notes/Report: Test performed by [facility] [address] [place] [address] , [address], [place] [address] Joey Rock MD, Supervisor [employer] CLIA: [id number] Vitamin B12 [phone] pg/mL CBC Venipuncture (in house) Reviewed date:04/07/2024 10:47:06 AM Interpretation:Normal Performing Lab: Notes/Report: Normal wbc 7.6 3.5 - 10 lymph 19.2% 15 - 50 mid 5.4% 2 - 15 gran 75.4% 35 - 80 rbc 4.77 3.5 - 5.5 hgb 14.4 11.5 - 16.5 hct 42.8 35 - 55 mcv 89.7 75 - 100 mch 30.3 25 - 35 mchc 33.8 31 - 38 platlet 264 100 - 400 Urinalysis - Inhouse Reviewed date:04/07/2024 10:46:48 AM Interpretation: Performing Lab: Notes/Report: Color/Clarity yellow/clear Leuk neg Nitrite neg Urobili 3.2 Protein neg pH 6.0 Blood neg Sp. Gr. >=1.030 Ketone trace Bili 1+ Gluc neg P-Vitamin D 25-Hydroxy Reviewed date:11/19/2024 01:11:44 PM Interpretation: Normal Performing Lab: Notes/Report: Test performed by [facility] [address] [place] [address] , [address], [place] [address] Joey Rock MD, Supervisor [employer] CLIA: [id number] Vitamin D 25-Hydroxy 49.5 30.0-100.0 ng/mL Interpretation of Vitamin D 25 OH: < 20 ng/mL - Deficiency 20 - 29 ng/mL - Insufficiency 30 - 100 ng/mL - Sufficiency > 100 ng/mL - Super-therapeutic- toxicity may occur above this level. Clinical correlation required. P-Comprehensive Metabolic Pa shane (CMP) Reviewed date:11/19/2024 01:11:44 PM Interpretation: Normal Performing Lab: Notes/Report: Test performed by [facility] [address] [place] [address] , [address], [place] [address] Joye Rock MD, Supervisor [employer] CLIA: [id number] Sodium 140 135-145 mmol/L Potassium 4.2 3.5-5.3 [...] 0.5 <0.2-1.2 mg/dL A/G Ratio 1.9 1.1-2.5 Reason For Referral Reason Please use [facility], no p rovider pref. 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 Referred Provider Specialty ENT General Notes Rosibel Moncada 04/06/20 24 10:07:00 AM > faxed to [facility] ENT Referral Priority Routine Diagnosis 1 Pain in right knee ( M25.561) Referral Organization [facility] Referring Provider First Name Stewart Referring Provider Last Name Myla Referring Provider [facility] Referred Provider Stuart Preciado Referred Provider Specialty Orthopedic S urgery General Notes Rosibel Moncada 9:10:30 AM > 09/23/2024 at 10:45am; cannot leave for patient; patient informed Referral Priority Routine Medications Medication SIG (Take, Route, Frequency, Duration) [...] 1 tab(s) orally once a day Active Metoprolol Succinate ER 25 MG 1 tablet Orally Once a day for 90 days Active Immunizations Vaccine Route Administration Date Status Comme nts COVID 19 Pfizer Unknown 09/23/2020 Administered COVID 19 Pfizer Unknown 10/13/2020 Administered COVID 19 Pfizer Unknown 05/11/2021 Administered Fluzone High Dose (65yr and older) IM Intramuscular 06/19/2023 Administered Fluzone High Dose (65yr and older) IM Intramuscular 05/20/2024 Pending Fluzone PF Quad (6-35 months) Unknown 08/13/2019 Administered Fluzone PF Quad (6-35 months) Unknown 06/14/2022 Administered Hepatitis A (adult) Unknown 07/27/2018 Administered Prevnar (PCV20) IM Intramuscular 06/19/2023 Administered Tetanus Tdap-Adacel (over 7yrs) Unknown 12/04/2016 Administered Problems Problem Type SNOMED Code ICD Code Onset Dates Problem Status W/U Status Risk Notes Problem 48366845 Vitamin D defici ency (E55.9) Active confirmed Problem 259446118 Adjustment disor cecy with mixed anxiety and depressed mood (F43.23) Active confirmed Problem 94192545 Coronary artery disease involving [place] coronary artery of [place] heart without angina pectoris (I25.10) Active confirmed Problem 590858768 Carotid artery d isease without cerebral infarction (I77.9) Active confirmed Problem 502496402 Pure hypercholesterolemia (E78.00) Active confirmed Problem 550544978 Cervical arthrit is (M47.812) Active confirmed Problem 96243592 Primary hyperten whitney (I10) Active confirmed Vital Signs Heart Rate 67 /min 12/22/2024 Blood pressure diastolic 86 mm Hg 12/22/2024 Height 62 in 12/22/2024 Blood pressure systolic 170 mm Hg 12/22/2024 Weight 101.4 lbs 12/22/2024 BMI 18.54 kg/m2 12/22/2024 Encounters Encounter Location Date Provider Diagnosis [facility] [address] [place], [place] [id number] 04/06/2024 [place] Stenosis of left lac rimal duct H04.552 ; Fatigue, unspecified type R53.83 ; Pure hypercholesterolemia E78.00 and Primary hypertension I10 [facility] [address] [place], [place] [id number] 05/20/2024 Stewart [place] Primary hypertension I10 ; Pure hypercholesterolemia E78.00 and Vitamin D deficiency E55.9 [facility] [address] [place], [place] [id number] 09/15/2024 Stewart [place] Pain in right knee M 25.561 ; Weight loss R63.4 ; Vitamin D deficiency E55.9 and Coronary artery disease involving [place] coronary artery of [place] heart without angina pectoris I25.10 [facility] [address] [place], [place] [id number] 11/18/2024 Stewart [place] Primary hypertension I10 ; Pure hypercholesterolemia E78.00 ; Vitamin D deficiency E55.9 ; Coronary artery disease involving [place] coronary artery of [place] heart without angina pectoris I25.10 ; Carotid artery disease without cerebral infarction I77.9 and BMI less than 19,adult Z68.1 [facility] [address] [facility] [address] [place], [place] [id number] 12/22/2024 Stewart [place] Chest wall pain R07. 89 ; Primary hypertension I10 and Body mass index (BMI) less than 19 Z68.1 [facility] [address] [place], [place] [id number] 04/07/2024 Stewart [place] [facility] [address] [place], [place] [id number] 05/24/2024 Stewart [place] [facility] [address] [place], [place] [id number] 06/24/2024 Stewart [place] Pure hypercholestero lemia E78.00 [facility] [address] [place], [place] [id number] 07/15/2024 Stewart [place] Primary hypertension I10 [facility] [address] [place], [place] [id number] 09/16/2024 Stewart [place] Assessments Encounter Date Diagnosis (ICD Code) Assessment Notes Treatment Notes Treatment Clinical Notes Section Notes 04/06/2024 Fatigue, unspecified type (ICD-10 - R53.83) 05/20/2024 Pure hypercholesterolemia (ICD-10 - E78.00) 05/20/2024 Primary hypertension (ICD-10 - I10) 06/24/2024 Pure hypercholesterolemia (ICD-10 - E78.00) 07/15/2024 Primary hypertension (ICD-10 - I10) 04/06/2024 Stenosis of left lacrimal duct (ICD-10 - H04.552) 09/15/2024 Weight loss (ICD-10 - R63.4) 09/15/2024 Pain in right knee (ICD-10 - M25.561) 11/18/2024 Pure hypercholesterolemia (ICD-10 - E78.00) 11/18/2024 Primary hypertension (ICD-10 - I10) 12/22/2024 Chest wall pain (ICD -10 - R07.89) symptomatic treatment of pain. Return if worsening of pain or developement of new symptoms 12/22/2024 Primary hypertension (ICD-10 - I10) 12/22/2024 Body mass index (BMI ) less than 19 (ICD-10 - Z68.1) 11/18/2024 Vitamin D deficiency (ICD-10 - E55.9) 05/20/2024 Vitamin D deficiency (ICD-10 - E55.9) 09/15/2024 Vitamin D deficiency (ICD-10 - E55.9) 04/06/2024 Pure hypercholesterolemia (ICD-10 - E78.00) 11/18/2024 Coronary artery dise ase involving [place] coronary artery of [place] heart without angina pectoris (ICD-10 - I25.10) 09/15/2024 Coronary artery dise ase involving [place] coronary artery of [place] heart without angina pectoris (ICD-10 - I25.10) 04/06/2024 Primary hypertension (ICD-10 - I10) 11/18/2024 Carotid artery disea se without cerebral infarction (ICD-10 - I77.9) 11/18/2024 BMI less than 19,jacquie lt (ICD-10 - Z68.1) Plan Of Treatment Next Appt Details Provider Name:Stewart doran, 01/28/2025 03:15:00 PM, [address], [address], [place], [place], [id number], Provider Name:Stewart doran, 05/20/2025 09:45:00 AM, [address], [address], [place], [id number], Insurance Providers Payer Name Payer Address Payer Phone Subscriber Number Group Number Insured Name Patient Relationship to Insured Coverage Start Date Coverage End Date MEDICARE PART B [address] [address] [place] [address] [id number] COMPA PYLE Self - patient is the insured MEDICAID [employer] [address] [place] [id number] COMPA PYLE Self - patient is the insured Medical (General) History Medical History History ICD Code Coronary Artery Disease Hyperlipidemia Hypertension carotid artery disease Allergic Rhinitis Arhtritis Hearing loss Cervical spine osteoarthritis osteoarthritis, right knee, s/p ortho ev al in 2024 Surgical History Surgery Date(Month/Year) ORIF left leg/knee fracture 1993 Carotid Endartectomy 2013 Heart Cath, numerous stents placed 2011, 2012, 2015 cochlear implant x 2
--- OUTSIDE RECORDS SUMMARY | 2025-01-27 20:26 | XMS_ITS | Encounter Summary ---
Author Organization [facility] Address [address] [place] [address] Care Team Providers Care Assembler Fishing [employer]ats Name Role Phone Shashi Harrell MD Primary Care Provider [phone] Trupti Pelayo APRN Unavailable [phone] Kierra Roca MD Unavailable [phone] Stewart Lanza MD Primary Care Provider [phone] Encounter Details Date Type Department Care Team (Late st Contact Info) Description 01/23/2021 Transcribed Document [facility] Cardiology [address] [place] [address] Kierra Roca MD [address] [facility] [address] [place] [address] Social History Tobacco Use Types Packs/Day Years Used Date Smoking Tobacco: Never Assessed Comments Unknown Sex and Gender Information Value Date Recorded Sex Assigned at Not on file Legal Sex Female 3:47 PM CDT Gender Identity Not on file Sexual Orientation Not on file documented as of this encounter Miscellaneous Notes * Cerner Conversion Note - Kierra Roca MD - 01/23/2021 9:29 AM EDT DATE OF SERVICE: This patient underwent a stress test with a myocardial perfusion study, the EKG portion of which was unremarkable. NUCLEAR SCAN: There appears to be a within normal myocardial perfusion. Normal wall motion and wall thickening appreciated. Ejection fraction 83%. IMPRESSION: 1. Normal study. 2. Ejection fraction is 83%. /[id number] Kierra Roca MD NMF/AQ / NMF / MODL /[id number] documented in this encounter Plan of Treatment Not on file documented as of this encounter Visit Diagnoses Not on filedocumented in this encounter Care Teams Assembler [employer]ats Relationship Specialty Start Date End Date Shashi Hrarell MD [address] [place] [address] PCP - General Family Medicine 04/08/23 06/12/23 Stewart Lanza MD [address] [facility] [address] [place] [address] PCP - General Family Medicine 06/13/23 Trupti Pelayo APRN [address] [facility] [address] [place], [place] [id number] Cardiology 04/08/23 Kierra Roca MD [address] [facility] [address] [place] [address] Interventional Cardiology 04/08/23 documented as of this encounter
--- OUTSIDE RECORDS SUMMARY | 2025-01-27 20:26 | XMS_ITS | Encounter Summary ---
Author Organization [facility] Address [address] [place] [address] Care Team Providers Care Personal Banker Name Role Phone Shashi Harrell MD Primary Care Provider [phone] Trupti Pelayo APRN Unavailable [phone] Kierra Roca MD Unavailable [phone] Stewart Lanza MD Primary Care Provider [phone] Reason for Visit * Reason Comments Medication Refill Encounter Details Date Type Department Care Team (Late st Contact Info) Description 05/30/2023 Refill [facility] Cardiology [address] [place] [address] Trupti Pelayo APRN [address] [facility] [address] [place] [id number] Social History Tobacco Use Types Packs/Day Years [...] on filedocumented in this encounter Care Teams Personal Banker Relationship Specialty Start Date End Date Shashi Harrell MD [address] [place] [address] PCP - General Family Medicine 04/08/23 06/12/23 Stewart Lanza MD [address] [facility] [address] [place] [address] PCP - General Family Medicine 06/13/23 Trupti Pelayo APRN [address] [place] [address] [address] Cardiology 04/08/23 Kierra Roca MD [address] [facility] [address] [address] Interventional Cardiology 04/08/23 documented as of this encounter
--- OUTSIDE RECORDS SUMMARY | 2025-01-27 20:26 | XMS_ITS | Encounter Summary ---
Author Organization [employer] Address [address] [place] [address] Care Team Providers Care Chief Learning Officer Name Role Phone Shashi Harrell MD Primary Care Provider [phone] Trupti Pelayo APRN Unavailable [phone] Kierra Roca MD Unavailable [phone] Stewart Lanza MD Primary Care Provider [phone] Reason for Visit * Reason Comments Medication Refill Encounter Details Date Type Department Care Team (Late st Contact Info) Description 04/05/2023 Refill [facility] Cardiology [address] [place] [address] Trupti Pelayo APRN [address] [facility] [address] [place] [id number] Social History Tobacco Use Types Packs/Day Years [...] on filedocumented in this encounter Care Teams Chief Learning Officer Relationship Specialty Start Date End Date Shashi Harrell MD [address] [place] [address] PCP - General Family Medicine 04/08/23 06/12/23 Stewart Lanza MD [address] [facility] [address] [place] [address] PCP - General Family Medicine 06/13/23 Trupti Pelayo APRN [address] [place] [address] [address] Cardiology 04/08/23 Kierra Roca MD 1401 [facility] [address] [address] Interventional Cardiology 04/08/23 documented as of this encounter
--- OUTSIDE RECORDS SUMMARY | 2025-01-27 20:26 | XMS_ITS | Clinical Summary ---
Author Organization [facility] Address [address] [place] [address] Care Team Providers Care Keypunch Operator Name Role Phone Stewart Lanza MD Primary Care Provider [phone] Allergies Active Allergy Reactions Criticality Noted Date Comments Lisinopril Angioedema High 05/14/2023 Medications hydrOXYzine pamoate (Vistaril) 25 MG capsule Take 1 capsule (25 mg) by mouth every 6 (six) hours if needed for itching for up to 10 days. 30 capsule 05/14/2023 Active Encounters Date Type Department Care Team Description 10/29/2024 Telephone [facility] Audiology [address] [place] [id number] Terri Barrera AuD 10/28/2024 2:00 PM EDT Office Visit [facility] Audiology [address] [place] [id number] Terri Barrera, Kamini Sensorineural hearing loss (SNHL) of both ears (Primary Dx) 10/28/2024 Travel from Last 3 Months Family History Medical History Relation Name Comments Cardiac disorder Brother 1 Hypertension Brother 2 Conversions - Other Brother 3 Hearing deficit Hyperlipidemia Brother 4 Hypertension Daughter 1 Migraines Daughter 2 Obesity Daughter 3 Cardiac disorder Father Conversions - Other Father Hearing deficit Coronary artery disease Father Hyperlipidemia Father Hypertension Father Cardiac disorder Maternal Grandfather Hyperlipidemia Maternal Grandfather Hypertension Maternal Grandfather Cardiac disorder Maternal Grandmother Hyperlipidemia Maternal Grandmother Hypertension Maternal Grandmother Bleeding disorder Mother Cardiac disorder Mother Conversions - Other Mother Hearing deficit Coronary artery disease Mother Depression Mother Hyperlipidemia Mother Hypertension Mother Kidney disease Mother Stroke Mother Cardiac disorder Sister 1 Hypertension Sister 2 Conversions - Other Sister 3 Hearing deficit Hyperlipidemia Sister 4 Relation Name Status Comments Brother 1 Brother 2 Brother 3 Brother 4 Daughter 1 Daughter 2 Daughter 3 Father Maternal Grandfather Maternal Grandmother Mother Sister 1 Sister 2 Sister 3 Sister 4 Social History Tobacco Use Types Packs/Day Years Used Date Smoking Tobacco: Former Alcohol Use Standard Drinks/Week Comments No 0 (1 standard drink = 0.6 oz pur e alcohol) Comments Unknown Sex and Gender Information Value Date Recorded Sex Assigned at Not on file Legal Sex Female 7:27 PM EDT Gender Identity Not on file Sexual Orientation Not on file Last Filed Vital Signs Vital Sign Reading Time Taken Comments Blood Pressure 119/78 05/14/2023 5:45 PM EDT Pulse 81 05/14/2023 5:45 PM EDT Temperature 37.2 C (98.9 F) 05/14/2023 5:45 PM EDT Respiratory Rate 19 05/14/2023 5:45 PM EDT Oxygen Saturation 99% 05/14/2023 5:45 PM EDT Inhaled Oxygen Concentration - - Weight 49.9 kg (110 lb) 05/14/2023 1:33 PM EDT Height 154.9 cm (5' 1 ) 05/14/2023 1:33 PM EDT Body Mass Index 20.78 05/14/2023 1:33 PM EDT Plan of Treatment Health Maintenance Due Date Last Done Comments [facility]-Bone Density Scan 1955 [facility]-Depression Screening 1955 [facility]-Medicare Annual Wellness (AWV) 1955 [facility]-Infant/Child/Adol SDOH Screenings 1955 [facility]- SDOH Screenings 1972 [facility]-Adult SDOH Screenings 1972 CT Colonography 12/24/1999 Colonoscopy 12/24/1999 FIT-DNA 12/24/1999 FIT 12/24/1999 FOBT 12/24/1999 Sigmoidoscopy 12/24/1999 [facility]-Colorectal Cancer Screening 12/24/1999 [facility]-Zoster Vaccines (1 of 2) 2004 [facility]-Breast Cancer Screening 02/27/2018 02/28/2016 [id number] Vaccine ( season) 2024 08/18/2023, 06/14/2022, 12/20/2021, Additional history exists [facility]-Influenza Vaccine (Season Ended) 2025 06/14/2022, 08/13/2019 [facility]-DTaP,Tdap,and Td Vaccines (2 - Td or Tdap) 12/04/2026 12/04/2016 [facility]-RSV Vaccine: 60+ Years or (1 - 1-dose 75+ series) 2029 [facility]-Hepatitis A Vaccines Aged Out 07/27/2018 No longer eligible based on patient's age to complete this topic [facility]-Hepatitis C Screening Completed 05/14/2023 [facility]-Pneumococcal Vaccine: 50+ Years Completed 06/19/2023 HPV Vaccines Aged Out No longer eligi ble based on patient's age to complete this topic [facility]-HIB Vaccines Aged Out No longer e ligible based on patient's age to complete this topic [facility]-IPV Vaccines Aged Out No longer e ligible based on patient's age to complete this topic [facility]-Rotavirus Vaccines Aged Out No lo nger eligible based on patient's age to complete this topic Procedures Procedure Name Priority Date/Time Associated Diagnosis Comments HEPATITIS C ANTIBODY - ED W/REFLEX TO HCV QUANT PCR STAT 05/14/2023 1:47 PM EDT MAMMOGRAPHY BREAST SCREENING TOMOSYNTHESIS BILATERAL Routine 02/28/2016 12:00 PM EDT from Last 3 Months or Most Recently Relevant to Health Maintenance Results * Hepatitis C Antibody - ED (05/14/2023 1:47 PM EDT) Hepatitis C Antibody Negative Negative 05/14/2023 2:52 PM EDT [facility] Blood Venous blood specimen / Unknown Venipuncture / Unknown 05/14/2023 1:47 PM EDT 05/14/2023 2:00 PM EDT us Garth Garcia MD LAB BLOOD ORDERABLES Final Resul t [facility] [address] [place] [id number] * Mammography Breast Screening Tomosynthesis Bilateral (02/28/2016 12:00 PM EDT) Anatomical Region Laterality Modality Breast Bilateral Mammography Impressions 03/19/2016 4:10 PM EDT BI-RADS Assessment Category 1: Negative. RECOMMENDATION: Routine screening mammogram in 1 year. COMMUNICATION: The results and recommendations will be sent to the patient in a printed lay language version of the imaging report. The mammogram was read with the assistance of CAD and tomosynthesis. Page 1 of 2 Patient Name:Michelle Pyle : 1955 Age: 60 Gender: femaleDate of Service: 02/28/2016 eferring Phy:Danielle Tomlinson, [facility]: [id number] FINAL ATTESTATION: By electronically signing this report, I, the attending physician, attest that I have personally reviewed the images/data for the above examination and agree with the final edited report. Read By: Julianna Katz M.D. Signed By: Andrade Yost M.D. on 03/19/2016 at 04:09:25 PM Page 2 of 2 Read By: JULIANNA KATZ M.D. Signed By: ANDRADE YOST M.D. on 03/19/2016 at 16:09:26 Narrative 03/19/2016 4:10 PM EDT REQUESTING PHYSICIAN: DANIELLE TOMLINSON REASON FOR EXAMINATION/PROCEDURE: screen EXAMINATION / PROCEDURE: SCREENING MAMMO DIGITAL W/ CAD Feb 28 2016:35 UTE BILATERAL SCREENING Feb 28 2016 11:35 HISTORY: Patient is 60 years ol d and is seen for screening mammography. The patient has no personal history of cancer. The patient has no family history of breast cancer. COMPARISON: The present examination has been compared to a prior imaging study performed at an out side location on 03/22/2013. MAMMOGRAM TECHNIQUE: The following mammographic views were obtained: bilateral craniocaudal; bilateral mediolateral oblique; and bilateral tomosynthesis images were obtained. Computer assisted detection was used i n the interpretation of this study. MAMMOGRAM FINDINGS: The breasts are almost entirely fatty. No masses, suspicious microcalcifications or architectural distortion are evident. The findings are confirmed with tomosynthesis. IMPRESS ION: BI-RADS Assessment Category 1: Negative. RECOMMENDATION: Routine screening mammogram in 1 year. COMMUNICATION: The results and recommendations will be sent to the patient in a printed lay language version of the imaging report. The ma mmogram was read with the assistance of CAD and tomosynthesis. FINAL ATTESTATION: By electronically signing this report, I, the attending physician, attest that I have personally reviewed the images/data for the above examination and agree w ith the final edited report. Read By: JULIANNA KATZ M.D. Signed By: ANDRADE YOST M.D. on 03/19/2016 at 16:09:26 Verified by: ANDRADE YOST M.D. on Mar 19 2016 4:09P Transcribed by: PSCB Mar 19 2016 4:09P Dictated by: JULIANNA KATZ M.D. on Mar 19 2016 4:09P Patient Name:Michelle Pyle : 1955 Age: 60 Gender: femaleDate of Service: 02/28/2016 eferring Phy:Danielle Tomlinson, [facility]: [id number] Danielle Tomlinson MD Internal Medicine [address] [place] [address] FINAL REPORT PROCEDURE: Tomosynthesis Bilateral Screening - bilateral , Screening Mammogram with CAD - bilateral HISTORY: Patient is 60 years old and is seen for screening mammography. The patient has no personal history of cancer. The patient has no family history of breast cancer. COMPARISON: The present examination has been compared to a prior imaging study performed at an outside location on 03/22/2013. MAMMOGRAM TECHNIQUE: The following mammographic views were obtained: bilateral craniocaudal; bilateral mediolateral oblique; and bilateral tomosynthesis images were obtained. Computer assisted detection was used in the interpretation of this study. MAMMOGRAM FINDINGS: The breasts are almost entirely fatty. No masses, suspicious microcalcifications or architectural distortion are evident. The findings are confirmed with tomosynthesis. Procedure Note Andrade Yost - 12/17/2020 REQUESTING PHYSICIAN: DANIELLE TOMLINSON REASON FOR EXAMINATION/PROCEDURE: screen EXAMINATION / PROCEDURE: SCREENING MAMMO DIGITAL W/ CAD Feb 28 2016 11:35 UTE BILATERAL SCREENING Feb 28 2016 11:35 HISTORY: Patient is 60 years ol d and is seen for screening mammography. The patient has no personal history of cancer. The patient has no family history of breast cancer. COMPARISON: The present examination has been compared to a prior imaging study performed at an out side location on 03/22/2013. MAMMOGRAM TECHNIQUE: The following mammographic views were obtained: bilateral craniocaudal; bilateral mediolateral oblique; and bilateral tomosynthesis images were obtained. Computer assisted detection was used i n the interpretation of this study. MAMMOGRAM FINDINGS: The breasts are almost entirely fatty. No masses, suspicious microcalcifications or architectural distortion are evident. The findings are confirmed with tomosynthesis. IMPRESS ION: BI-RADS Assessment Category 1: Negative. RECOMMENDATION: Routine screening mammogram in 1 year. COMMUNICATION: The results and recommendations will be sent to the patient in a printed lay language version of the imaging report. The ma mmogram was read with the assistance of CAD and tomosynthesis. FINAL ATTESTATION: By electronically signing this report, I, the attending physician, attest that I have personally reviewed the images/data for the above examination and agree w ith the final edited report. Read By: JULIANNA KATZ M.D. Signed By: ANDRADE YOST M.D. on 03/19/2016 at 16:09:26 Verified by: ANDRADE YOST M.D. on Mar 19 2016 4:09P Transcribed by: [facility] HOSPITALJulieta Mar 19 2016 4:09P Dictated by: JULIANNA KATZ M.D. on Mar 19 2016 4:09P Patient Name:Michelle Pyle : 1955 Age: 60 Gender: femaleDate of Service:02/28/2016 eferring Phy:Danielle Tomlinson MDAount: [id number] Danielle Tomlinson MD Internal Medicine [address] [place] [address] FINAL REPORT PROCEDURE: Tomosynthesis Bilateral Screening - bilateral , Screening Mammogram withCAD - bilateral HISTORY: Patient is 60 years old and is seen for screening mammography. Thepatient has no personal history of cancer. The patient has no family history of breast cancer. COMPARISON: The present examination has been compared to a prior imaging studyperformed at an outside location on 03/22/2013. MAMMOGRAM TECHNIQUE: The following mammographic views were obtained: bilateral craniocaudal;bilateral mediolateral oblique; and bilateral tomosynthesis images were obtained. Computer assisted detection was usedin the interpretation of this study. MAMMOGRAM FINDINGS: The breasts are almost entirely fatty. No masses, suspicious microcalcifications or architectural distortion areevident. The findings are confirmed with tomosynthesis. IMPRESSION: BI-RADS Assessment Category 1: Negative. RECOMMENDATION: Routine screening mammogram in 1 year. COMMUNICATION: The results and recommendations will be sent to the patient in a printedlay language version of the imaging report. The mammogram was read with the assistance of CAD and tomosynthesis. Page 1 of 2 Patient Name:Michelle Pyle : 1955 Age: 60 Gender: femaleDate of Service:02/28/2016 eferring Phy:Danielle Tomlinson, MDAccount: [phone] FINAL ATTESTATION: By electronically signing this report, I, the attending physician, attestthat I have personally reviewed the images/data for the above examination and agree with the final editedreport. Read By: Julianna Katz M.D. Signed By: Andrade Yost M.D. on 03/19/2016 at 04:09:25 PM Page 2 of 2 Read By: JULIANNA KATZ M.D. Signed By: ANDRADE YOST M.D. on 03/19/2016 at 16:09:26 us Danielle Tomlinson MD IMG BI PROCEDURES Final Result from Last 3 Months or Most Recently Relevant to Health Maintenance Insurance [place] [id number] MEDICARE MEDICAID-[place] Care Teams Keypunch Operator Relationship Specialty Start Date End Date Stewart Lanza MD [address] [facility] [address] [place] [address] PCP - General 10/28/24
--- OUTSIDE RECORDS SUMMARY | 2025-01-27 20:26 | XMS_ITS | Referral Summary ---
Author Organization [employer] Address [address] [place] [address] Care Team Providers Care Vocational Aide Name Role Phone Trupti Pelayo APRN Unavailable [phone] Kierra Roca MD Unavailable [phone] Stewart Lanza MD Primary Care Provider [phone] Allergies Active Allergy Reactions Criticality Noted Date [...] Anxiety 06/02/2023 Arthritis 06/02/2023 Hypertension HLD (hyperlipidemia) Social History Tobacco Use Types Packs/Day Years [...] file 10/04/2023 Housing Stability Vital Sign Answer Cahs e Recorded In the last 12 months, [...] place to sleep or slept in a snf (including now)? No 10/04/2023 Interpersonal Safety Answer [...] Date [place] r[place] Speak language other than Bangladeshi at home Not on file 08/29/2023 Want [...] 10/03/2023 10:23 PM EST Plan of Treatment Not on file Insurance MEDICARE PART A B MEDICAID [place] Advance Directives For more information, please contact: [phone] * Full Code (Latest Code Status on [...] 11:00 PM 10/04/2023 12:45 AM Care Teams Vocational Aide Relationship Specialty Start Date End Date Stewart Lanza MD [address] [facility] [address] [place] [address] PCP - General Family Medicine 06/13/23 Trupti Pelayo APRN 1401 [facility] [address] [place] [address] Cardiology 04/08/23 Kierra Roca MD [address] [facility] [address] [place] [address] Interventional Cardiology 04/08/23
--- OUTSIDE RECORDS SUMMARY | 2025-01-27 20:26 | XMS_ITS | Encounter Summary ---
Author Organization [employer] Address [address] [place] [address] Care Team Providers Care Pool Installer Name Role Phone Trupti Pelayo APRN Unavailable [phone] Kierra Roca MD Unavailable [phone] Stewart Lanza MD Primary Care Provider [phone] Reason for Visit * Reason Comments Medication Refill Encounter Details Date Type Department Care Team (Late st Contact Info) Description 07/09/2023 Refill [facility] Cardiology [address] [place] [address] Trupti Pelayo APRN 14[address] [facility] [address] [place] [id number] Social History Tobacco Use Types Packs/Day Years Used Date Smoking Tobacco: Never Smokeless Tobacco: Never Alcohol Use Standard Drinks/Week Comments Yes 0 (1 standard drink = 0.6 oz pur e alcohol) socially Comments Unknown Sex and Gender Information Value Date Recorded Sex Assigned at Not on file Legal Sex Female 3:47 PM CDT Gender Identity Not on file Sexual Orientation Not on file documented as of this encounter Plan of Treatment Not on file documented as of this encounter Visit Diagnoses Not on filedocumented in this encounter Care Teams Pool Installer Relationship Specialty Start Date End Date Stewart Lanza MD [address] [place] [address] [place] [address] PCP - General Family Medicine 06/13/23 Trupti Pelayo APRN [address] [facility] [address] [address] Cardiology 04/08/23 Kierra Roca MD [address] [facility] [address] [id number] Interventional Cardiology 04/08/23 documented as of this encounter
--- NOTE | 2025-01-27 20:35 | PC.NURSE ---
Visual Acuity: R-20/13 L-20/20 B-20/20 pt wears glasses all the time Pt reports it's like I can see straight in front of me, but its around me that is a little scattered. 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
--- NOTE | 2025-01-27 20:49 | CT_ITS ---
PROCEDURE INFORMATION: Exam: CT Head Without Contrast Exam date and time: 01/27/2025 9:26 PM Age: 69 years old Clinical indication: Visual disturbance; Additional info: B/l blurry vision TECHNIQUE: Imaging protocol: Computed tomography of the head without contrast. Radiation optimization: All CT scans at this facility use at least one of these dose optimization techniques: automated exposure control; mA and/or kV adjustment per patient size (includes targeted exams where dose is matched to clinical indication); or iterative reconstruction. COMPARISON: CT - HEADWO CT head/brain wo con 03/12/2018 2:30 AM FINDINGS: Brain: Significant image degradation with suboptimal visualization of parieto-occipital lobes secondary to strong susceptibility artifacts from cochlear implants. No obvious hemorrhage. No obvious mass effect. Cerebral ventricles: No ventriculomegaly. Paranasal sinuses: Visualized sinuses are unremarkable. No fluid levels. Mastoid air cells: Visualized mastoid air cells are well aerated. Bones: No acute findings. Soft tissues: Unremarkable. IMPRESSION: No grossly acute findings identified.
--- NOTE | 2025-01-27 20:49 | CT_ITS ---
PROCEDURE INFORMATION: Exam: CTA Neck With Contrast Exam date and time: 01/27/2025 9:29 PM Age: 69 years old Clinical indication: Visual disturbance; Additional info: B/l blurry vision TECHNIQUE: Imaging protocol: Computed tomographic angiography of the neck with contrast. Exam focused on the cervical segments of the vasculature. 3D rendering (Not supervised by radiologist): MIP and/or 3D reconstructed images were created by the technologist. Radiation optimization: All CT scans at this facility use at least one of these dose optimization techniques: automated exposure control; mA and/or kV adjustment per patient size (includes targeted exams where dose is matched to clinical indication); or iterative reconstruction. Contrast material: ISOVUE; Contrast volume: 80 ml; Contrast route: INTRAVENOUS (IV); COMPARISON: CT HEAD/BRAIN WO CON 01/27/2025 9:26 PM FINDINGS: Right common carotid artery: Mild atherosclerotic narrowing of the carotid bulb without flow-limiting stenosis. No dissection or occlusion. Right internal carotid artery: Mild stenosis of the proximal cervical segment. No dissection or occlusion. Right external carotid artery: No occlusion or stenosis of the origin. Left common carotid artery: Common origin with the right brachiocephalic artery. Postsurgical changes of endarterectomy. No stenosis. No dissection or occlusion. Left internal carotid artery: Postsurgical changes of endarterectomy. No stenosis of the extracranial segment. No dissection or occlusion. Left external carotid artery: No occlusion or stenosis of the origin. Right vertebral artery: No stenosis. No dissection or occlusion. Left vertebral artery: Mild focal atherosclerotic narrowing of the distal V1 segment without flow-limiting stenosis. No dissection or occlusion. Soft tissues: Unremarkable. Bones/joints: No acute fracture. Degenerative changes. IMPRESSION: 1. Mild right internal carotid artery proximal cervical segment stenosis. 2. Postsurgical changes of left endarterectomy. REFERENCES: NASCET CRITERIA. The degree of stenosis in the cervical segment of the internal carotid artery is based on NASCET criteria. Normal is no stenosis. Mild is less than 50% stenosis. Moderate is 50-69% stenosis. Severe is 70% to 99% stenosis. Total occlusion is no detectable patent lumen.
--- NOTE | 2025-01-27 20:49 | CT_ITS ---
PROCEDURE INFORMATION: Exam: CTA Head With Contrast, Venography Exam date and time: 01/27/2025 9:29 PM Age: 69 years old Clinical indication: Visual disturbance; Additional info: B/l blurry vision TECHNIQUE: Imaging protocol: Computed tomography angiography of the head with contrast. Exam focused on the veins. 3D rendering (Not supervised by radiologist): MIP and/or 3D reconstructed images were created by the technologist. Radiation optimization: All CT scans at this facility use at least one of these dose optimization techniques: automated exposure control; mA and/or kV adjustment per patient size (includes targeted exams where dose is matched to clinical indication); or iterative reconstruction. Contrast material: ISOVUE; Contrast volume: 80 ml; Contrast route: INTRAVENOUS (IV); COMPARISON: CT ANGIO HEAD 01/27/2025 9:29 PM FINDINGS: Superior sagittal sinus: Patent. Straight sinus: Patent. Transverse sinuses: Patent. Sigmoid sinuses: Patent. Internal jugular veins: Limited visualized internal jugular veins are patent. Brain: No definite mass, mass effect, or midline shift. Cerebral ventricles: No ventriculomegaly. Soft tissues: Unremarkable. IMPRESSION: No venous thrombosis. PROCEDURE INFORMATION: Exam: CTA Head With Contrast, Arteriography Exam date and time: 01/27/2025 9:29 PM Age: 69 years old Clinical indication: Visual disturbance; Additional info: B/l blurry vision TECHNIQUE: Imaging protocol: Computed tomographic angiography of the head with contrast. Exam focused on the arteries. 3D rendering (Not supervised by radiologist): MIP and/or 3D reconstructed images were created by the technologist. Radiation optimization: All CT scans at this facility use at least one of these dose optimization techniques: automated exposure control; mA and/or kV adjustment per patient size (includes targeted exams where dose is matched to clinical indication); or iterative reconstruction. Contrast material: ISOVUE; Contrast volume: 80 ml; Contrast route: INTRAVENOUS (IV); COMPARISON: CT HEAD/BRAIN WO CON 01/27/2025 9:26 PM FINDINGS: ANTERIOR CIRCULATION: Right internal carotid artery: Rfji-ow-ibkioies atherosclerotic narrowing of the intracranial segment without flow-limiting stenosis. No aneurysm. Right middle cerebral artery: No occlusion or significant stenosis. No aneurysm. Right anterior cerebral artery: No occlusion or significant stenosis. No aneurysm. Left internal carotid artery: Jyyk-mc-iniyqpgh atherosclerotic narrowing of the intracranial segment without flow-limiting stenosis. No aneurysm. Left middle cerebral artery: No occlusion or significant stenosis. No aneurysm. Left anterior cerebral artery: No occlusion or significant stenosis. No aneurysm. POSTERIOR CIRCULATION: Right vertebral artery: Rfso-ov-lshehwet atherosclerotic narrowing of the proximal and mid V4 segments. 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 Left vertebral artery: Pist-qb-uccbzwwt atherosclerotic narrowing of the proximal and mid V4 segments. No aneurysm. Basilar artery: No occlusion or significant stenosis. No aneurysm. Right posterior cerebral artery: No occlusion or significant stenosis. No aneurysm. Left posterior cerebral artery: No occlusion or significant stenosis. No aneurysm. Brain: No definite mass, mass effect, or midline shift. Cerebral ventricles: No ventriculomegaly. Bones/joints: Unremarkable. No acute fracture. Soft tissues: Unremarkable. IMPRESSION: 1. No large vessel flow-limiting stenosis or occlusion. 2. 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
--- NOTE | 2025-01-27 20:50 | HMH.EDGENADL ---
Discharge Plan Disposition Patient Disposition: Home, Self-Care Prescriptions Prescriptions: No Action atorvastatin 40 mg tablet 40 mg PO DAILY Patient Comments: TAKE 1 TABLET BY MOUTH ONCE DAILY FOR 90 DAYS nitroglycerin 0.4 MG tablet, sublingual 0.4 mg PO Q5MINP PRN (Reason: Angina) aspirin 81 MG tablet,chewable 81 mg PO DAILY ezetimibe 10 tablet 10 mg PO DAILY Patient Comments: ranolazine 1,000 tablet extended release 12 hr 1,000 mg PO DAILY Patient Comments: Referrals Follow up/Referrals: Stewart Lanza MD [Primary Care Provider, Medical] - See instructions Activity Restrictions/Add. Instructions Additional Instructions/Restrictions: At this time it was felt you are safe to be discharged home. If new or worsening symptoms please do not hesitate to return the emergency department. Please follow-up with Dr. Lanza tomorrow as discussed. As discussed you have an outpouching in the artery of your right neck called an aneurysm that we will need to keep an eye on. Clinical Impressions Clinical Impression: Aneurysm of right vertebral artery, Solar purpura, Blurred vision Print Language Print Language: [place] Islander Discharge ED Provider: Jordan Duval General Adult HPI General Chief complaint: Eye Problems Stated complaint: Blurred vision,red spots on legs,HBP Time Seen by Provider: 01/27/25 20:18 Mode of Arrival: Ambulatory Source of Information: Patient Description of Symptoms (Recalled from ER Triage Doc. by RN): pt presents for evaluation of blurred vision that began when waking from a nap this evening approx 1900. Pt reports normal vision when lying down approx 1700 today. Pt denies headache, chest pain, SOA or any numbness or tingling to extremities. Pt also reports difuse red rash to BLE that began after returning from vacation from [place] this week. GCS 15, NIHS 0 History of Present Illness HPI narrative: Patient is a 69-year-old female with no pertinent past medical history presents emergency department for evaluation of spots on her legs as well as blurry vision. History is obtained by patient at bedside she recently went on vacation to [place] where she walked 4 miles which is unusual for her. The next day she woke up with spots on her lower extremities distal to her knees. She was going to follow-up with family doctor however she does have associated bilateral blurry vision which she woke up with over the last 2 to 3 days without headache or trauma causing her to become concerned and presented for continued evaluation. She does wear corrective vision with glasses. No vomiting, numbness, extremity weakness, gait changes, speech changes, other acute complaints at this time. Please note that above description of symptoms, in this electronic medical record under categorization of recalled from ER triage doctor by RN are reflective of an initial nursing assessment, however, is not reflective of my full history and physical exam that was personally taken and clarified. Consequentially, this preceding description of symptoms, which may include the patient's categorized chief complaint in the EMR, do not reflect my personal clinical impression, and the ultimate description of history of present illness and patient stated complaints should be deferred to this section of the note. Unless stated otherwise or congruent with this section of the note, additional signs, symptoms, or incongruence should be interpreted as inaccurate with my clinical impression. Related Data Home Medications ?Medication ?Instructions ?Recorded ?Confirmed aspirin 81 mg chewable tablet 81 mg PO DAILY Heart disease 11/23/17 01/13/25 ezetimibe 10 mg tablet 10 mg PO DAILY Cholesterol 11/23/17 01/13/25 nitroglycerin 0.4 mg sublingual 0.4 mg PO Q5MINP PRN Angina 11/23/17 01/13/25 tablet ranolazine 1,000 mg 1,000 mg PO DAILY angina 11/23/17 01/13/25 tablet,extended release,12 hr atorvastatin 40 mg tablet 40 mg PO DAILY 04/15/24 01/13/25 Allergies Allergy/AdvReac Type Severity Reaction Status Date / Time atorvastatin (From LIPITOR) Allergy Mild Verified 01/13/25 10:16 lisinopril (LISINOPRIL) Allergy Mild Verified 01/13/25 10:16 morphine (MORPHINE) Allergy Unknown Verified 01/13/25 10:16 Opioids - Morphine Analogues Allergy Unknown Verified 01/13/25 10:16 (OPIOIDS - MORPHINE ANALOGUES) [facility] Disclaimer: The information contained in this section may have been updated after the patient was seen, as this information can be updated by other users. Medical History Lacrimal duct stenosis Blocked tear duct Blocked lacrimal duct Hyperlipidemia Hypertension Surgical History Hx of cardiac cath History of tonsillectomy Social History Smoking Status: Current every day smoker alcohol intake: never current occupational status: employed Travel in the last 8 weeks?: None Have you lived/traveled outside US in past 30 days?: No Contact w/someone who lives/traveled outside US past 30 days?: No Exposure to someone with infectious disease in past 14 days?: No Do you have a fever (greater than 100.4 F or 38 C)?: No Have you tested positive for COVID-19?: No Exposed to someone with COVID-19 in past 14 days?: No Do you have a sore throat?: No Do you have a cough?: No Do you have any weakness?: No Do you have any diarrhea?: No Are you experiencing any unusual bleeding?: No Do you have any muscle aches/pain?: No Do you have any abdominal pain?: No Are you experiencing loss of taste or smell?: No Other Medical History Have you received the Flu Vaccine for this season: No Have you received the Pneumonia Vaccine: No ROS Obtained: Yes Systems reviewed as appropriate & no additional complaints except as documented Physical Exam General General appearance: alert and in no apparent distress Head Head exam: atraumatic and normocephalic Eye Eye exam: Present PERRL, EOMI and other (Right eye 20/13, left eye 20/20, both eyes 20/20) ENT ENT exam: Present mucous membranes moist Neck Neck exam: Present normal inspection Chest Chest inspection: Present normal inspection and symmetric chest wall rise Respiratory Respiratory exam: Present normal lung sounds bilaterally; Absent respiratory distress Cardiovascular Cardiovascular exam: Present regular rate and normal rhythm Abdominal Exam Abdominal exam: Present soft Extremities Exam Extremities exam: Present normal inspection Neurological Exam Neurological exam: Present alert, oriented X3 and CN II-XII intact; Absent motor sensory deficit Psychiatric Psychiatric exam: Present normal affect Skin Skin exam: Present warm, dry and other (Scattered subcentimeter purpura over the lower extremities distal to the knee. Palpable dorsal pedal pulses bilaterally.) Medical Decision Making Medical Records Screening: Per USPSTF and CDC recommendations, given the prevalence of disease in our region, it is our hospital?s policy to screen for HIV and viral Hepatitis for all patients aged 18 and over and those with ongoing risk factors. David Inquiry Pt receiving controlled substance: No Vital Signs: 01/27/25 20:16 01/27/25 21:20 01/27/25 21:48 Temperature 97.9 F Temperature Source Oral Pulse Rate 66 79 Pulse Rate [Radial] 78 Respiratory Rate 16 16 12 Blood Pressure 159/90 H 156/92 H Blood Pressure [Right Arm] 184/100 H Blood Pressure Mean [Right Arm] 128 Blood Pressure Position [Right Arm] Sitting 02 Sat by Pulse Oximetry 97 98 97 Oxygen Delivery Method Room Air Room Air 01/27/25 22:00 Temperature Temperature Source Pulse Rate 64 Pulse Rate [Radial] Respiratory Rate 13 Blood Pressure 156/92 H Blood Pressure [Right Arm] Blood Pressure Mean [Right Arm] Blood Pressure Position [Right Arm] 02 Sat by Pulse Oximetry 97 Oxygen Delivery Method Lab Data Lab Results 01/27/25 20:43: WBC 6.3, RBC 4.67, Hgb 14.5, Hct 42.2, MCV 90.4, MCH 31.0, MCHC 34.4, RDW 12.1, Plt Count 270, MPV 9.1, Neut % (Auto) 57.3, Lymph % (Auto) 29.3, [place] % (Auto) 10.3 H, Eos % (Auto) 2.1, Baso % (Auto) 0.8, Neut # (Auto) 3.6, Lymph # (Auto) 1.9, [place] # (Auto) 0.7, Eos # (Auto) 0.1, Baso # (Auto) 0.1, PT 10.4, INR 0.93, APTT 24.8, Sodium 133 L, Potassium 3.3 L, Chloride 100, Carbon Dioxide 26, Anion Gap 10.3, BUN 18 H, Creatinine 0.80, Estimated Creat Clear 39, Estimated GFR 71, Est GFR ( Amer) 86, Glucose 98, Calcium 9.8, Total Bilirubin 0.9, AST 25, ALT 21, Alkaline Phosphatase 78, Total Protein 6.9, Albumin 4.1, Globulin 2.8, Albumin/Globulin Ratio 1.5 01/27/25 20:43 01/27/25 20:43 Orders (Tests/Meds): ED MEDICATIONS Generic Name Dose Route Start Last Admin Trade Name Freq PRN Reason Stop Dose Admin Sodium Chloride 10 ml 01/27/25 21:32 01/27/25 21:39 Sodium Chloride 0.9% 10ml Syr (Rad Only) IV 02/26/25 21:31 10 ml NEEDED PRN Administration Maintain IV Site Discontinued Medications Generic Name Dose Route Start Last Admin Trade Name Freq PRN Reason Stop Dose Admin Lactated Ringer's 1,000 mls @ 999 mls/hr 01/27/25 20:50 01/27/25 20:54 Lactated Ringer's 1000 Ml Bag IV 01/27/25 21:50 999 mls/hr .Q1H1M ONE Administration Iopamidol 80 ml 01/27/25 21:32 01/27/25 21:39 Iopamidol-370 (76%);100ml Bottle IV 01/27/25 21:33 80 ml ONCE ONE Administration Sodium Chloride 50 ml 01/27/25 21:32 01/27/25 21:39 0.9 % Sodium Chloride 50 Ml Vial IV 01/27/25 21:33 50 ml ONCE ONE Administration ORDERS Category Date Time Status CT Venogram head Stat Cat Scan 01/27/25 20:[address] angio head Stat Cat Scan 01/27/25 20:[address] angio neck Stat Cat Scan 01/27/25 20:[address] head/brain wo con Stat Cat Scan 01/27/25 20:49 Completed CBC w/Auto Diff [Complete Blood Count Auto Diff] Stat Lab 01/27/25 20:43 Completed CMP [Comprehensive Metabolic Panel] Stat Lab 01/27/25 20:43 Completed PT INR [Prothrombin Time INR] Stat Lab 01/27/25 20:43 Completed PTT [Activated Partial Thrombo Time] Stat Lab 01/27/25 20:43 Completed ECG Data Tracing #1: Independently interpreted by me rate is 72, rhythm is regular, axis is normal, no ST elevation in anatomical contiguous leads, QTc 424 Medical Decision Narrative: In summary patient is a 69-year-old female with past medical history Aly above presents emergency department for evaluation of visual blurriness and skin changes over lower extremities. Her skin changes over her lower extremities are consistent with solar purpura however screening labs for hematologic problems will be conducted. With the SPECT her visual blurriness she has near perfect vision however arterial and venous pathology in her head and neck remain on differential for which workup will be conducted with noncontrasted CT scan of the head CT venogram head and CTA head and neck. Initial inventions include crystalloid bolus as patient feels she may be dehydrated and she does not have any contraindications to this and may improve her symptoms subjectively. Initial workup reviewed by me, hematologic labs are nonactionable no significant leukocytosis or anemia no RENA or critical electrolyte abnormality. CT imaging of the head and neck suggestion of a 2 mm x 4.5 mm laterally directed wide necked aneurysm at the right vertebral artery mid V4 segment. No critical stenosis or occlusion. No venous thrombosis. No acute intracranial abnormality. Given this upon repeat evaluation patient continued to be well-appearing and although she has mild subjective blurry vision objectively her vision is near perfect corrected and patient is appropriate for outpatient management at this time will follow-up with her family doctor early next week. Critical Care Critical Care Time Critical Care Time: No
[2025-01-27] MEDS: LACTATED RINGERS 1000ML 1,000 ML 999 ML IV (20:54)
[2025-01-27 20:56] LABS: Basophils # 0.1 K/mm3 (0-0.2); Basophils % 0.8 % (0.1-2.0); Eosinophils # 0.1 Kmm3 (0.0-0.4); Eosinophils % 2.1 % (0.1-12.0); Hematocrit 42.2 % (37.0-47.0); Hemoglobin 14.5 g/dL (12.2-16.2); Immature Granulocytes # 0.01 10^3uL; Immature Granulocytes % 0.2 %; Lymphocytes # 1.9 K/mm3 (0.7-4.5); Lymphocytes % 29.3 % (10-50); Mean Corpuscular HGB Conc 34.4 g/dL (31.8-35.4); Mean Corpuscular Volume 90.4 fl (81-99); Mean Platelet Volume 9.1 fl (7.4-10.4); Monocytes # 0.7 K/mm3 (0.1-1.0); Monocytes % 10.3 % (1.7-9.3); Neutrophils # 3.6 K/mm3 (1.8-7.8); Neutrophils % 57.3 % (37.0-80.0); Nucleated Red Blood Cells # 0 10^3/uL; Nucleated Red Blood Cells % 0 %; Platelet Count 270 K/mm3 (142-424); Red Blood Count 4.67 M/mm3 (4.20-5.40); Red Cell Distribution Width 12.1 % (11.5-17.5); Red Cell Distribution Width-SD 39.8 fL; White Blood Count 6.3 K/mm3 (4.8-10.8)
[2025-01-27 21:02] LABS: Alanine Aminotransferase 21 U/L (12-78); Albumin Level 4.1 g/dl (3.5-5.0); Albumin/Globulin Ratio 1.5 (1.1-1.8); Alkaline Phosphatase 78 U/L (38-126); Anion Gap 10.3 mEq/L (5-15); Aspartate Amino Transferase 25 U/L (14-36); Bilirubin,Total 0.9 mg/dl (0.2-1.3); Blood Urea Nitrogen 18 mg/dl (7-17); Calcium 9.8 mg/dl (8.4-10.2); Carbon Dioxide 26 mmol/L (22.0-30.0); Chloride 100 mmol/L (98-107); Creatinine Clearance Estimated 39 mL/min (50-200); Estimated Glomerular Filt Rate 71 ml/min (>60); GFR (African American) 86 ML/MIN (>60); Globulin 2.8 g/dL (1.3-3.2); Glucose 98 mg/dl (74-100); Potassium 3.3 mmoL/L (3.5-5.1); Sodium 133 mmol/L (136-145); Total Protein,Serum 6.9 g/dl (6.3-8.2)
[2025-01-27 21:08] LABS: Activated Partial Thrombo Time 24.8 seconds (22.8-30.6); INR 0.93 (0.9-1.1); Prothrombin Time 10.4 seconds (10.1-12.5)
[2025-01-27 21:20] VITALS: BP 159/90; PULSE 66; RESP 16; O2SAT 98
--- NOTE | 2025-01-27 21:20 | PC.NURSE ---
pt taken to CT at this time.
[2025-01-27] MEDS: IOPAMIDOL-370 (76%);100ML BOTTLE 80 ML IV (21:39)
[2025-01-27] MEDS: SODIUM CHLORIDE 0.9% 10ML SYR (RAD ONLY) 10 ML IV (21:39)
[2025-01-27] MEDS: 0.9 % SODIUM CHLORIDE 50 ML VIAL IV (21:39)
--- NOTE | 2025-01-27 21:39 | PC.NURSE ---
pt returned from ct scan without incident.
[2025-01-27 21:48] VITALS: BP 156/92; PULSE 79; RESP 12; O2SAT 97
[2025-01-27 22:00] VITALS: BP 156/92; PULSE 64; RESP 13; O2SAT 97
--- NOTE | 2025-01-27 22:37 | PC.NURSE ---
ed provider at the bedside.
[2025-01-27 22:52] VITALS: BP 153/84; PULSE 64; RESP 13; TEMP 36.7; O2SAT 97
[2025-01-27 22:53] VITALS: BP 153/84; PULSE 75; RESP 15; TEMP 37; O2SAT 99
== END 2025-01-27 22:54 | disposition home or self-care (01) ==
PROVIDERS: Emergency Provider Emergency Medicine; PCP Family Medicine
DX: I72.6 Aneurysm of vertebral artery (principal); D69.2 Other nonthrombocytopenic purpura; H53.8 Other visual disturbances; I10 Essential (primary) hypertension; E78.5 Hyperlipidemia, unspecified; F17.210 Nicotine dependence, cigarettes, uncomplicated
CPT/HCPCS: 70450; 70496; 70498; 80053; 85025; 85610; 85730; 93005; 96360; 99285; J7120; Q9967

== ENCOUNTER 2025-05-23 13:02 | Outpatient (CLI) | payer MEDICARE, MEDICAID, SELFPAY ==
--- OUTSIDE RECORDS SUMMARY | 2023-10-03 23:38 | XMS_ITS | Encounter Summary ---
Author Organization [employer] ([place], [place], [place], [place]) Address [address] [place] [address] Care Team Providers Care Superintendent Operations Division Name Role Phone Trupti Pelayo APRN Unavailable [phone] Kierra Roca MD Unavailable [phone] Stewart Lanza MD Primary Care Provider [phone] Encounter Details Date Type Department Care Team (Late st Contact Info) Description 10/03/2023 10:38 PM EST Hospital Encounter [facility] 4 Interventional Care Unit 1 [place] [address] Erin Johnson MD [address] [facility], [facility] [address] [place] [address] Social History Tobacco Use Types [...] Date Clovis rded Speak language other than Hungarian at home Not on file 08/29/2023 Want [...] on filedocumented in this encounter Care Teams Superintendent Operations Division Relationship Specialty Start Date End Date Stewart Lanza MD [address] [place] [address] PCP - General Family Medicine 06/13/23 Trupti Pelayo APRN [address] [place] [address] [address] [place] [id number] Cardiology 04/08/23 Kierra Roca MD [address] [facility] [address] [address] Interventional Cardiology 04/08/23 documented as of this encounter
--- OUTSIDE RECORDS SUMMARY | 2025-02-18 06:00 | XMS_ITS ---
[facility] Address [address] [facility] [address] [place], [place] [id number] Care Team Providers Care Button Sewer Name Role Phone Stewart Lanza Unavailable [phone] Allergies Allergen (clinical drug ingredient) Drug/Non Drug Allergy documented on EMR Reaction Allergy Type Onset Date Status lisinopril Lisinopril Unknown Drug Allergy Activ e Results Component Value Reference Range Notes P-Basic Metabolic Panel (BMP ) Reviewed date:02/22/2025 12:01:05 PM Interpretation:Normal Performing Lab: Notes/Report: Test performed by [facility] [address] [place] [address] , [address], [place] [address] Joey Rock MD, Administrative Tech CLIA: [id number] Sodium 141 135-145 mmol/L Potassium 4.2 3.5-5.3 [...] MG as directed Orally Active Vital Signs Weight 103.4 lbs 02/18/2025 Blood pressure systolic 130 mm Hg 02/19/20 25 Blood pressure diastolic 74 mm Hg 025 Heart Rate 76 /min 02/18/2025 Height 62 in 02/18/2025 BMI 18.91 kg/m2 02/18/2025 Encounters Encounter Location Date Provider Diagnosis [facility] [address] [place] [address] [address] [facility] [address] [place], [place] [id number] 02/18/2025 Stewart Lanza Vertebral artery aneurysm I72.6 [...] Provider Name:Stewart Singer ry, 09/23/2025 01:30:00 PM, [facility] [address] [facility], [address], [place], [place], [id number], Progress Notes * ARABELLA YPLEB:1955 (69 yo F)Acc No.[id number]:02/18/2025 Progress Notes Patient: COMPA SEPULVEDA Provider: Julieta Lanza M.D. :1955 A ge:69 Y S ex:Female Date:02/18/2025 Address:[address] [place] [address], [place], [place] Subjective: * Chief Complaints: * 1 . [...] * Images: Billing Information: * Visit Code: 94524 Office Visit, Est Pt., Level 3. * Procedure Codes: G2211 Complex e/m visit add on. 1036F TOBACCO NON-USER. G8783 BP SCR PRFRM RCMDD DEFIND SCR INTVL. G8752 MOST RECENT SYSTOLIC BP < 140MM HG. G8754 MOST RECENT DIASTOLIC BP < 90MM HG. * Electronic signature of Alicia Lanza MD on 05/23/2025 at 01:06 PM EDT Sign off status: Pending * Provider: Julieta Lanza M.D. Date: 0 02/18/2025 Generated for Cyndee mcgrath/Duncan/eTransmitting on: 1 01:06 PM EDT History and Physical Notes * [...]
--- OUTSIDE RECORDS SUMMARY | 2025-04-07 09:30 | XMS_ITS ---
Author Organization [facility] Address [address] [phone] Care Team Providers Care Meat Pickler Name Role Phone Stewart Lanza Unavailable [phone] AdanLien puckett Unavailable [phone] Allergies Allergen (clinical drug ingredient) Drug/Non Drug [...] day; Duration: 90 days Active Vital Signs Weight 105.4 lbs 04/07/2025 Blood pressure systolic 128 mm Hg 04/07/20 25 Blood pressure diastolic 80 mm Hg 025 Heart Rate 68 /min 04/07/2025 Height 62 in 04/07/2025 BMI 19.28 kg/m2 04/07/2025 Encounters Encounter Location Date Provider Diagnosis [facility] 1210 [facility] 36 [facility] [address] [place] [id number] 04/07/2025 Lien Reid Other specified disorders of [facility], [address], [place], [phone], Progress Notes * ROSHAN PYLEPARESHB:1955 (69 yo F)Acc No.[id number]:04/07/2025 Progress Notes Patient: COMPA SEPULVEDA Provider: SHERICE Cisneros :1955 A ge:69 Y S ex:Female Date:04/07/2025 Address:[address] [place] [address], [facility] Subjective: * Chief Complaints: * 1 . [...] * Images: Billing Information: * Visit Code: 48576 Office Visit, Est Pt., Level 3. * Procedure Codes: G2211 Complex e/m visit add on. 1036F TOBACCO NON-USER. G8783 BP SCR PRFRM RCMDD DEFIND SCR INTVL. G8752 MOST RECENT SYSTOLIC BP < 140MM HG. G8754 MOST RECENT DIASTOLIC BP < 90MM HG. * Electronic signature of SHERICE Rubi on 05/23/2025 at 01:06 PM EDT Sign off status: Pending * Provider: SHERICE Cisneros Date: 0 04/07/2025 Generated for Cyndee mcgrath/Duncan/eTransmitting on: 01:06 PM EDT History and Physical Notes [...] Appearance: NAD Oral cavity: left lower molar scrap breaker cked, the gums are swollen and very tender on the lower left, there is some cervical adenopathy Chest: normal shape and exp ansion
--- OUTSIDE RECORDS SUMMARY | 2025-04-22 09:45 | XMS_ITS ---
Author [facility] Address [address] [facility] [address] [place] [id number] Care Team Providers Care Donor Processor Name Role Phone Stewart Lanza Unavailable [phone] Allergies Allergen (clinical drug ingredient) Drug/Non Drug Allergy documented on EMR Reaction Allergy Type Onset Date Status lisinopril Lisinopril Unknown Drug Allergy Activ e Results Component Value Reference Range Notes P-Basic Metabolic Panel (BMP ) Reviewed date:04/25/2025 05:32:57 PM Interpretation:Normal Performing Lab: Notes/Report: Test performed by [facility] [address] [place] [address] , [address], [place] [address] Joey Rock MD, Set Up Worker CLIA: [id number] Sodium 148 135-145 mmol/L Potassium 3.7 3.5-5.3 [...] IM Intramuscular 04/22/2025 Administe red Vital Signs Weight 104.8 lbs 04/22/2025 Blood pressure systolic 130 mm Hg 04/22/20 25 Blood pressure diastolic 76 mm Hg 025 Heart Rate 72 /min 04/22/2025 Height 62 in 04/22/2025 BMI 19.17 kg/m2 04/22/2025 Encounters Encounter Location Date Provider Diagnosis [facility] 1210 [facility] 36 [facility] [address] [place] [phone] 04/22/2025 Stewart Lanza Hypokalemia E87.6 an d Encounter for immunization Z23 Assessments Encounter Date Diagnosis (ICD Code) Assessment Notes Treatment Notes Treatment Clinical Notes Section Notes 04/22/2025 Hypokalemia (ICD-10 - E87.6) 04/22/2025 Encounter for immunization (ICD-10 - Z23) Plan Of Treatment Next Appt Details Follow Up: 5 Months, Reason: Provider Name:Stewart Singer , 09/23/2025 01:30:00 PM, 1210 [facility] 36 [facility], [address], [place], [id number], Progress Notes * ARABELLA PYLEB:1955 (69 yo F)Acc No.[id number]:04/22/2025 Progress Notes Patient: COMPA SEPULVEDA Provider: Julieta Lanza M.D. :1955 A ge:69 Y S ex:Female Date:04/22/2025 Address:[address] [place] [address], [id number] Subjective: * Chief Complaints: * 1 . 2 month f/u. * HPI: H PI: 69 year old female presents with c/o Patient is here today for?follow up on hypokalemia. She has had no further neurologic symptoms since her admission at [facility] in [place]. * ROS: D ERMATOLOGY: no R catarino. [...] 0.5 mL (Route: Intramuscular) given by BAILEY kSy on Right Arm (Encounter for immunization) * Procedure Codes: G 2211 Complex e/m visit add on, 1036F TOBACCO NON-USER, 3075F SYST BP GE 130 - 139MM HG, 3078F DIAST BP < 80 MM HG * Follow Up: 5 Months * Images: Billing Information: * Visit Code: 62320 Office Visit, Est Pt., Level 3. * Procedure Codes: G2211 Complex e/m visit add on. 1036F TOBACCO NON-USER. 3075F SYST BP GE 130 - 139MM HG. 3078F DIAST BP < 80 MM HG. * Electronic signature of Alicia Lanza MD on 05/23/2025 at 01:06 PM EDT Sign off status: Pending * Provider: Julieta Lanza M.D. Date: 0 04/22/2025 Generated for Cyndee mcgrath/Duncan/Brendaitting on: 1 01:06 PM EDT History and Physical Notes * HPI (History of Present Illness) Category Sub-Category Detail Notes Category Not es HPI Patient is here today for follow up on hypokalemia. She has had no further neurologic symptoms since her admission at [facility] in [place] Examination Category Sub-Category Detail Notes Category Not es General Examination Heart: RSR Lungs: clear to auscultatio n General Appearance: NAD
--- OUTSIDE RECORDS SUMMARY | 2025-04-26 09:55 | XMS_ITS ---
Author Organization [facility] Address [facility]0 [facility] 36 [facility] [address] [place], [place] [phone] Care Team Providers Care Station Mechanic Apprentice Name Role Phone Stewart Lanza Unavailable [phone] REASON FOR VISIT due col, kamran, dexa Encounters Encounter Location Date Provider Diagnosis [facility] 1210 [facility] 36 [facility] [address] [place], [place] [phone] 04/26/2025 Stewart Lanza Breast cancer screen ing Z12.31 and Encounter for screening for osteoporosis Z13.820 Assessments Encounter Date Diagnosis (ICD Code) Assessment Notes Treatment Notes Treatment Clinical Notes Section Notes 04/26/2025 Breast cancer screening (ICD-10 - Z12.31) 04/26/2025 Encounter for screening for osteoporosis (ICD-10 - Z13.820) Plan Of Treatment Pending Test Test Name Order Date Mammogram 04/26/2025 Next Appt Details Provider Name:Stewart Singer ry, 09/23/2025 01:30:00 PM, 1210 [facility] 36 [facility], [address], [place], [place], [phone], Progress Notes * ANNA VALENTINEMEG:1955 (69 yo F)Acc No.[id number]:04/26/2025 Patient: ROSHAN SEPULVEDAA :1955 A ge:69 Y S ex:Female Address:[address] [place] [address], [place], [address] Subjective: * Chief Complaints: * D ue [...] AM EDT >sent to [facility] for [facility] * Procedure Codes: * true * Date: Generated for Cyndee mcgrath/Duncan/eTransmitting on: 1 01:05 PM EDT
--- OUTSIDE RECORDS SUMMARY | 2025-05-20 05:45 | XMS_ITS ---
Author Organization [facility] Address [address] [place] [phone] Care Team Providers Care Science Center Display Builder Name Role Phone Stewart Lanza Unavailable [phone] Allergies Allergen (clinical drug ingredient) Drug/Non Drug Allergy documented on EMR Reaction Allergy Type Onset Date Status lisinopril Lisinopril Unknown Drug Allergy Activ e REASON FOR VISIT 6 months Encounters Encounter Location Date Provider Diagnosis [facility] 1210 [facility] 36 [facility] [address] [place] [phone] 05/20/2025 Stewart Lanza Plan Of Treatment Next Appt Details Provider Name:Stewart Singer ry, 09/23/2025 01:30:00 PM, [address], [address], [place], [place], [phone], Progress Notes * ROSHAN PYLEADOB:1955 (69 yo F)Acc No.[id number]:05/20/2025 Progress Notes Patient: COMPA SEPULVEDA Provider: Julieta Lanza M.D. :1955 A ge:69 Y S ex:Female Date:05/20/2025 Address:[address] [place], [place] [phone] Subjective: * Chief Complaints: * 1 . [...] of Alicia Lanza MD on 05/23/2025 at 01:05 PM EDT Sign off status: Pending * Provider: Julieta Lanza M.D. Date: Generated for Cyndee mcgrath/Duncan/Brendaitting on: 01:05 PM EDT
--- NOTE | 2025-05-23 13:05 | MM_ITS ---
PROCEDURE INFORMATION: Exam: MG Bilateral Screening 3D Mammography Exam date and time: 05/23/2025 1:18 PM Age: 69 years old Clinical indication: Screening mammogram TECHNIQUE: Imaging protocol: Bilateral Screening tomosynthesis and 2D mammography including computer-aided detection (CAD) when performed. COMPARISON: 1. MG MM DIG SCREENING MAMM BI W/CAD 12/18/2022 9:54 AM 2. MG UTE BILATERAL SCREENING 02/28/2016 11:30 AM 3. MG SCREENING MAMMO DIGITAL W/ CAD 02/28/2016 11:30 AM FINDINGS: MAMMOGRAPHY: Breast composition: There are scattered areas of fibroglandular density. Mass: None. Architectural distortion: No new or suspicious architectural distortion. Calcifications: Stable benign-appearing calcifications are present. No new or suspicious cluster of microcalcifications have developed. Asymmetric density: No new or suspicious asymmetric density is present Skin thickening: None. Axillary adenopathy: None. IMPRESSION: No mammographic evidence of malignancy. Recommend annual screening mammography unless otherwise clinically indicated. ASSESSMENT: BI-RADS category 2: Benign.
--- NOTE | 2025-05-23 13:05 | XR_ITS ---
FINAL REPORT TECHNIQUE: Bone densitometry calculations of the lumbar spine and bilateral hips were obtained. CLINICAL HISTORY: SCRENNING COMPARISON: None FINDINGS: Using L1-4, the bone mineral density of the spine is 0.806 g/cm2, corresponding to T-score of -2.2 and a Z score of -0.1. This is within the range of osteopenia. Using the left hip, the bone mineral density of the femoral neck is 0.591 g/cm2, corresponding to a T-score of -2.3 and a Z-score of -0.5. This is within the range of osteopenia. Using the right hip, the bone mineral density of the femoral neck is 0.528 g/cm?, corresponding to a T-score of -2.9 and a Z-score of -1.1. This is within the range of osteoporosis. NOTE: T-score: Standard deviation compared with peak bone mass of young adult mean. *Following the recommendations of the International Society of Bone densitometry, classification of hip BMD is based on the lower of two T-scores; total hip or femoral neck. IMPRESSION: 1. Bone mineral density of the lumbar spine within the range of osteopenia. 2. Bone mineral density of the left femoral neck within the range of osteopenia. 3. Bone mineral density of the right femoral neck within the range of osteoporosis. Reviewed, Interpreted and Dictated by Tamara Mathis MD Transcribed by Zoë Mauro Authenticated and [facility]
--- OUTSIDE RECORDS SUMMARY | 2025-05-23 13:05 | XMS_ITS | Patient Health Record ---
Author Organization [facility] Address [address] [facility] [address] [place] [id number] Care Team Providers Care Child Guidance Counselor Name Role Phone Stewart Lanza Unavailable [phone] Lien Reid Unavailable [phone] Allergies Allergen (clinical drug ingredient) Drug/Non Drug [...] Interpretation:Normal Performing Lab: Notes/Report: Test performed by [facility] , [address], [place] [address] Joey Rock MD, Personal Investment Adviser CLIA: [id number] Sodium 141 135-145 mmol/L Potassium 4.0 3.5-5.3 [...] 0.5 <0.2-1.2 mg/dL A/G Ratio 1.8 1.1-2.5 Q-B-Xqrdelsu Protein (CRP) Reviewed date:09/22/2024 12:55:57 PM Interpretation:Normal Performing Lab: Notes/Report: Test performed by [facility] [address] [place] [address] , [place] [address] Joey Rock MD, Personal Investment Adviser CLIA: [id number] C-Reactive Protein (CRP) 0.04 <0.50 mg/dL P-Sed Rate (ESR) Reviewed date:09/22/2024 12:55:57 PM Interpretation:Normal Performing Lab: Notes/Report: Test performed by [facility] [address] [place] [address] , [address], [place] [address] Joey Rock MD, Personal Investment Adviser CLIA: [id number] Erythrocyte Sedimentation Ra te (ESR), Automated 9 <31 mm/hr P-TSH reflex to FT4 Reviewed date:09/22/2024 12:55:57 PM Interpretation:Normal Performing Lab: Notes/Report: Test performed by [facility] [address] [place] [address] , [address], [place] [address] Joey Rock MD, Personal Investment Adviser CLIA: [id number] TSH reflex to FT4 1.58 0.43-5.25 mU/L P-Vitamin D 25-Hydroxy Reviewed date:09/22/2024 12:55:57 PM Interpretation:Normal Performing Lab: Notes/Report: Test performed by [facility] [address] [place] [address] , [address], [place] [address] Joey Rock MD, Personal Investment Adviser CLIA: [id number] Vitamin D 25-Hydroxy 54.7 30.0-100.0 ng/mL Interpretation [...] Notes/Report: degenerative changes and small joint effusion P-Basic Metabolic Panel (BMP ) Reviewed date:02/22/2025 12:01:05 PM Interpretation:Normal Performing Lab: Notes/Report: CLIA: [id number] Joey Rock MD, Personal Investment Adviser [address] [place] [address] , [place] [address] Test performed by [facility] Sodium 141 135-145 mmol/L Potassium 4.2 3.5-5.3 mmol/L Chloride 105 97-108 mmol/L CO2 25 20-32 mmol/L Glucose 94 65-99 mg/dL BUN 12 8-23 mg/dL Creatinine 0.73 0.50-1.00 mg/dL Calcium 9.8 8.6-10.4 mg/dL eGFR by Creatinine 88 >59 mL/min/1.73m2 P-Basic Metabolic Panel (BMP ) Reviewed date:04/25/2025 05:32:57 PM Interpretation:Normal Performing Lab: Notes/Report: CLIA: [id number] Joey Rock MD, Personal Investment Adviser [address] [place] [address] [address], [place] [address] Test performed by [facility] Sodium 148 135-145 mmol/L Potassium 3.7 3.5-5.3 mmol/L Chloride 105 97-108 mmol/L CO2 28 20-32 mmol/L Glucose 76 65-99 mg/dL BUN 10 8-23 mg/dL Creatinine 0.70 0.50-1.00 mg/dL Calcium 9.5 8.6-10.4 mg/dL eGFR by Creatinine 93 >59 mL/min/1.73m2 P-Comprehensive Metabolic Pa shane (CMP) Reviewed date:11/19/2024 01:11:44 PM Interpretation: Normal Performing Lab: Notes/Report: CLIA: [id number] Joey Rock MD, Personal Investment Adviser [address] [place] [address] , [address], [place] [address] Test performed by [facility] Sodium 140 135-145 mmol/L Potassium 4.2 3.5-5.3 [...] Normal Performing Lab: Notes/Report: Test performed by [facility] [address] [place] [address] , [address], [place] [address] Joey Rock MD, Personal Investment Adviser CLIA: [id number] Vitamin D 25-Hydroxy 49.5 30.0-100.0 ng/mL Interpretation of Vitamin D 25 [place]: < 20 ng/mL - Deficiency 20 - 29 ng/mL - Insufficiency 30 - 100 ng/mL - Sufficiency > 100 ng/mL - Super-therapeutic- toxicity may occur above this level. Clinical correlation required. Reason For Referral Diagnosis 1 Pain in right knee ( M25.561) Referral Organization [facility] Referring Provider First Name Stewart Referring Provider Last Name Myla Referring Provider Speciality Family Pra ctice Referred Provider Stuart Preciado Referred Provider Specialty [facility] [place] General Notes Rosibel Moncada 9:10:30 AM > [...] m outh twice daily; Duration: 30 Active Metoprolol Succinate ER 25 MG 1 tablet Orally Once a day; Duration: 90 days Active Immunizations Vaccine Route Administration Date Status Comme nts COVID 19 Pfizer Unknown 09/23/2020 Administered COVID 19 Pfizer Unknown 10/13/2020 Administered COVID 19 Pfizer Unknown 05/11/2021 Administered Fluzone High Dose (65yr and older) IM Intramuscular 06/19/2023 Administered Fluzone High Dose (65yr and older) IM Intramuscular 05/20/2024 Pending Fluzone High Dose (65yr and older) IM Intramuscular 04/22/2025 Administered Fluzone PF Quad (6-35 months) Unknown 08/13/2019 Administered Fluzone PF Quad (6-35 months) Unknown 06/14/2022 Administered Hepatitis A (adult) Unknown 07/27/2018 Administered PNEUMOVAX 23 VACCINE IM Intramuscular 04/22/2025 Administe red Prevnar (PCV20) IM Intramuscular 06/19/2023 Administered Tetanus Tdap-Adacel (over 7yrs) Unknown 12/04/2016 Administered Problems Problem Type SNOMED Code ICD Code Onset Dates Problem Status W/U Status Risk Notes Problem Vitamin D deficiency (87606919) Vitamin D deficiency (E55.9) Active confirmed Problem Adjustment disorder with mixed anxiety and depressed mood (459104007) Adjustment disorder with mixed anxiety and depressed mood (F43.23) Active confirmed Problem Atherosclerotic hear t disease of [place] coronary artery without angina pectoris (066494686336630) Coronary artery disease involving [place] coronary artery of [place] heart without angina pectoris (I25.10) Active confirmed Problem Disorder of carotid artery (disorder) (995236799) Carotid artery disease without cerebral infarction (I77.9) Active confirmed Problem Pure hypercholesterolemia (950966906) Pure hypercholesterolemia (E78.00) Active confirmed Problem Cervical arthritis (817122814) Cervical arthritis (M47.812) Active confirmed Problem Primary hypertension (14068880) Primary hypertension (I10) Active confirmed Vital Signs Heart Rate 72 /min 04/22/2025 Blood pressure diastolic 76 mm Hg 04/22/2025 Height 62 in 04/22/2025 Blood pressure systolic 130 mm Hg 04/22/2025 Weight 104.8 lbs 04/22/2025 BMI 19.17 kg/m2 04/22/2025 Encounters Encounter Location Date Provider Diagnosis Mandie 0 [facility] [address] [place] [id number] 09/15/2024 [place] Pain in right knee M 25.561 ; Weight loss R63.4 ; Vitamin D deficiency E55.9 and Coronary artery disease involving [place] coronary artery of [place] heart without angina pectoris I25.10 [facility] [address] [place] [id number] 11/18/2024 Stewart [place] Primary hypertension I10 ; Pure hypercholesterolemia E78.00 ; Vitamin D deficiency E55.9 ; Coronary artery disease involving [place] coronary artery of [place] heart without angina pectoris I25.10 ; Carotid artery disease without cerebral infarction I77.9 and BMI less than 19,adult Z68.1 [facility] [address] [place] [id number] 12/22/2024 Stewart [place] Chest wall pain R07. 89 ; Primary hypertension I10 and Body mass index (BMI) less than 19 Z68.1 Mandie 1209 [facility] [address] [place] [id number] 01/28/2025 Stewart [place] Blurring of vision H 53.8 and Hypokalemia E87.6 [facility] [address] [place] [id number] 02/18/2025 Stewart [place] Vertebral artery ane urysm I72.6 and Hypokalemia E87.6 [facility] [address] [place] [id number] 04/07/2025 Lien Reid Other specified diso rders of gingiva and edentulous alveolar ridge K06.8 and Unspecified infectious disease B99.9 [facility] [address] [place] [id number] 04/22/2025 Stewart [place] Hypokalemia E87.6 an d Encounter for immunization Z23 [facility] [address] [place], [place] [id number] 05/24/2024 Stewart [place] [facility] [address] [place], [place] [id number] 06/24/2024 Stewart [place] Pure hypercholestero lemia E78.00 [facility] [address] [place], [place] [id number] 07/15/2024 Stewart [place] Primary hypertension I10 [facility] [address] [place], [place] [id number] 09/16/2024 Stewart [place] [facility] [address] [place], [place] [id number] 02/07/2025 Stewart [place] [facility] [address] [place], [place] [id number] 03/07/2025 Stewart [place] [facility] [address] [place], [place] [id number] 03/08/2025 Stewart [place] [facility] [address] [place], [place] [id number] 04/26/2025 Stewart [place] Breast cancer screen ing Z12.31 and Encounter for screening for osteoporosis Z13.820 Assessments Encounter Date Diagnosis (ICD Code) Assessment Notes Treatment Notes Treatment Clinical Notes Section Notes 06/24/2024 Pure hypercholesterolemia (ICD-10 - E78.00) 07/15/2024 Primary hypertension (ICD-10 - I10) 09/15/2024 Weight loss (ICD-10 - R63.4) 09/15/2024 Pain in right knee (ICD-10 - M25.561) 01/28/2025 Hypokalemia (ICD-10 - E87.6) Potassium was low in ER 01/28/2025 Blurring of vision (ICD-10 - H53.8) Sympotms have resolved, need ER radiology reports 02/18/2025 Hypokalemia (ICD-10 - E87.6) 02/18/2025 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 She will call with the name of the provider 04/07/2025 Unspecified infectio us disease (ICD-10 - B99.9) 04/07/2025 Other specified disorders of gingiva and edentulous alveolar ridge (ICD-10 - K06.8) 04/22/2025 Hypokalemia (ICD-10 - E87.6) 04/22/2025 Encounter for immunization (ICD-10 - Z23) 04/26/2025 Encounter for screen ing for osteoporosis (ICD-10 - Z13.820) 04/26/2025 Breast cancer screen ing (ICD-10 - Z12.31) 11/18/2024 Pure hypercholesterolemia (ICD-10 - E78.00) 11/18/2024 Primary hypertension (ICD-10 - I10) 12/22/2024 Chest wall pain (ICD -10 - R07.89) symptomatic treatment of pain. Return if worsening of pain or developement of new symptoms 12/22/2024 Primary hypertension (ICD-10 - I10) 12/22/2024 Body mass index (BMI ) less than 19 (ICD-10 - Z68.1) 11/18/2024 Vitamin D deficiency (ICD-10 - E55.9) 09/15/2024 Vitamin D deficiency (ICD-10 - E55.9) 11/18/2024 Coronary artery dise ase involving [place] coronary artery of [place] heart without angina pectoris (ICD-10 - I25.10) 09/15/2024 Coronary artery dise ase involving [place] coronary artery of [place] heart without angina pectoris (ICD-10 - I25.10) 11/18/2024 Carotid artery disea se without cerebral infarction (ICD-10 - I77.9) 11/18/2024 BMI less than 19,jacquie lt (ICD-10 - Z68.1) Plan Of Treatment Pending Test Test Name Order Date Bone density 04/29/2025 Mammogram 04/26/2025 Next Appt Details Provider Name:Stewart doran, 09/23/2025 01:30:00 PM, [address] [facility], [address], [place], [place], [id number], Insurance Providers Payer Name Payer Address Payer Phone Subscriber Number Group Number Insured Name Patient Relationship to Insured Coverage Start Date Coverage End Date MEDICARE PART B [address] [address] [place] [id number] COMPA PYLE Self - patient is the insured MEDICAID [employer] [address] [place] [id number] ROSHAN PYLEA Self - patient is the insured Medical (General) History Medical History History ICD Code Coronary Artery Disease Hyperlipidemia Hypertension carotid artery disease Allergic Rhinitis Arhtritis Hearing loss Cervical spine osteoarthritis osteoarthritis, right knee, s/p ortho ev al in 2024 Surgical History Surgery Date(Month/Year) ORIF left leg/knee fracture 1993 Carotid Endartectomy 2013 Heart Cath, numerous stents placed 2011, 2012, 2014 cochlear implant x 2
--- OUTSIDE RECORDS SUMMARY | 2025-05-23 13:06 | XMS_ITS | Encounter Summary ---
Author Organization [employer] ([place], [place], [place], [place]) Address [address] [place] [address] Care Team Providers Care Senior Sales Consultant Name Role Phone Shashi Harrell MD Primary Care Provider [phone] Trupti Pelayo APRN Unavailable [phone] Kierra Roca MD Unavailable [phone] Stewart Lanza MD Primary Care Provider [phone] Reason for Visit * Reason Comments Medication Refill Encounter Details Date Type Department Care Team (Late st Contact Info) Description 05/30/2023 Refill [facility] Cardiology [address] [place] [address] Trupti Pelayo APRN [address] [facility] [address] [place], [place] [id number] Social History Tobacco Use Types Packs/Day Years [...] on filedocumented in this encounter Care Teams Senior Sales Consultant Relationship Specialty Start Date End Date Shashi Harrell MD [address] [place] [id number] PCP - General Family Medicine 04/08/23 06/12/23 Stewart Lanza MD [address] [facility] [address] [place] [address] PCP - General Family Medicine 06/13/23 Trupti Pelayo APRN [address] [place] [address] [address] [place] [address] Cardiology 04/08/23 [place] [address] [place] [address] [address] [place] [address] Interventional Cardiology 04/08/23 documented as of this encounter
--- OUTSIDE RECORDS SUMMARY | 2025-05-23 13:06 | XMS_ITS | Encounter Summary ---
Author Organization [employer] ([place], [place], [place], [place]) Address [address] [place] [address] Care Team Providers Care Appliance Parts Counter Clerk Name Role Phone Shashi Harrell MD Primary Care Provider [phone] Trupti Pelayo APRN Unavailable [phone] Kierra Roca MD Unavailable [phone] Stewart Lanza MD Primary Care Provider [phone] Encounter Details Date Type Department Care Team (Late st Contact Info) Description 01/23/2021 Transcribed Document [facility] Cardiology [address] [place] [address] [place] [address] [place] [address] [address] [place] [id number] Social History Tobacco Use Types Packs/Day Years [...] Normal study. 2. Ejection fraction is 83%. /[id number] Kierra Roca MD NMF/AQ / NMF / MODL /[id number] documented in this encounter Plan of Treatment Not on file documented as of this encounter Visit Diagnoses Not on filedocumented in this encounter Care Teams Appliance Parts Counter Clerk Relationship Specialty Start Date End Date Shashi Harrell MD [address] [facility] [place] [address] PCP - General Family Medicine 04/08/23 06/12/23 Stewart Lanza MD 1210 [facility] [address] [place] [address] PCP - General Family Medicine 06/13/23 Trupti Pelayo APRN [address] [place] [address] [address] Cardiology 04/08/23 Kierra Roca MD [address] [facility] [address] [place] [address] Interventional Cardiology 04/08/23 documented as of this encounter
--- OUTSIDE RECORDS SUMMARY | 2025-05-23 13:06 | XMS_ITS | Clinical Summary ---
Author Organization [employer] ([place], [place], [place], [place]) Address [address] [place] [address] Care Team Providers Care Human Resources Psychologist Name Role Phone Trputi Pelayo APRN Unavailable [phone] Kierra Roca MD Unavailable [phone] Stewart Lanza MD Primary Care Provider [phone] Allergies Active Allergy Reactions Criticality Noted Date [...] Date Clovis rded Speak language other than Azerbaijani at home Not on file 08/29/2023 Want [...] series) 2014 Breast Cancer Screening 02/27/2018 02/28/2016 Falls Risk Screening 08/11/2024 Tobacco Cessation Counseling and Screening (12+) 10/07/2024 10/07/2023 COVID-19 VACCINE (7 - 2024-2 6 season) 2025 08/18/2023, 06/14/2022, 12/20/2021, Additional history exists Influenza Vaccine (#1) 2025 DTAP/TDAP/TD VACCINES (2 - T d or Tdap) 12/04/2026 12/04/2016 Pneumococcal 50+ years Completed 06/19/2023 Insurance MEDICARE PART A B MEDICAID [id number] Advance Directives For more information, please contact: [phone] * Full Code (Latest Code Status on [...] 11:00 PM 10/04/2023 12:45 AM Care Teams Human Resources Psychologist Relationship Specialty Start Date End Date Stewart Lanza MD [address] [facility] [address] [place] [address] PCP - General Family Medicine 06/13/23 Trupti Pelayo APRN [address] [facility] [address] [place] [address] Cardiology 04/08/23 Kierra Roca MD [address] [facility] [address] [place] [address] Interventional Cardiology 04/08/23
--- OUTSIDE RECORDS SUMMARY | 2025-05-23 13:06 | XMS_ITS | Clinical Summary ---
Author Organization [facility] Address [address] [place] [address] Care Team Providers Care Engineering Program Manager Name Role Phone Stewart Lanza MD Primary Care Provider [phone] Allergies Active Allergy Reactions Criticality Noted Date Comments Lisinopril Angioedema High 05/14/2023 Medications hydrOXYzine pamoate (Vistaril) 25 MG capsule Take 1 capsule (25 mg) by mouth every 6 (six) hours if needed for itching for up to 10 days. 30 capsule 05/14/2023 Active Family History Medical History Relation Name Comments [...] Screening 1955 [facility]-Medicare Annual Wellness (AWV) 1955 [facility]-/Child/Adol SDOH Screenings 1955 [facility]- SDOH Screenings 1972 [facility]-Adult SDOH Screenings [address] CT Colonography 12/24/1999 Colonoscopy 12/24/1999 FIT-DNA 12/24/1999 FIT 12/24/1999 FOBT 12/24/1999 Sigmoidoscopy 12/24/1999 [facility]-Colorectal Cancer Screening 12/24/1999 [facility]-Zoster Vaccines (1 of 2) 2004 [facility]-Breast Cancer Screening 02/27/2018 02/28/2016 [id number] Vaccine ( season) 2025 08/18/2023, 06/14/2022, 12/20/2021, Additional history exists [facility]-Influenza Vaccine (#1) 2025 06/14/2022, [facility]-DTaP,Tdap,and Td Vaccines (2 - Td or [...] Antibody Negative Negative 05/14/2023 2:52 PM EDT [facility] Blood Venous blood specimen / Unknown Venipuncture / Unknown 05/14/2023 1:47 PM EDT 05/14/2023 2:00 PM EDT us Garth Garcia MD LAB BLOOD ORDERABLES Final Resul t [facility] [address] [place] [address] * Mammography Breast Screening Tomosynthesis Bilateral (02/28/2016 [...] femaleDate of Service: 02/28/2016 eferring Phy:Danielle Tomlinson, [facility]: [phone] FINAL ATTESTATION: By electronically signing this report, I, the attending physician, attest that I have personally reviewed the images/data for the above examination and agree with the final edited report. Read By: Jarod Katz M.D. Signed By: Chelsie Yost M.D. on 03/19/2016 at 04:09:25 PM Page 2 of 2 Read By: JAROD KATZ M.D. Signed By: CHELSIE YOST M.D. on 03/19/2016 at 16:09:26 Narrative [...] ith the final edited report. Read By: JAROD KATZ M.D. Signed By: CHELSIE YOST M.D. on 03/19/2016 at 16:09:26 Verified by: CHELSIE YOST M.D. on Mar 19 2016 4:09P Transcribed by: SAM Mar 19 2016 4:09P Dictated by: JAROD KATZ M.D. on Mar 19 2016 4:09P Patient Name:Michelle Pyle : 1955 Age: 60 Gender: femaleDate of Service: 02/28/2016 eferring Phy:Danielle Tomlinson, [facility]: [phone] Danielle Tomlinson MD Internal Medicine [address] [place] [address] FINAL REPORT PROCEDURE: Tomosynthesis Bilateral Screening - [...] findings are confirmed with tomosynthesis. Procedure Note Chelsie Yost - 12/17/2020 REQUESTING PHYSICIAN: DANIELLE TOMLINSON [...] ith the final edited report. Read By: JAROD KATZ M.D. Signed By: CHELSIE YOST M.D. on 03/19/2016 at 16:09:26 Verified by: CHELSIE YOST M.D. on Mar 19 2016 4:09P Transcribed by: [facility] Mar 19 2016 4:09P Dictated by: JAROD KATZ M.D. on Mar 19 2016 4:09P Patient Name:Michelle Pyle : 1955 Age: 60 Gender: femaleDate of Service:02/28/2016 eferring Phy:Danielle Tomlinson MDAccount: [id number] Danielle Tomlinson MD Internal Medicine [address] [place] [address] FINAL REPORT PROCEDURE: Tomosynthesis Bilateral Screening - [...] 1955 Age: 60 Gender: femaleDate of Service:02/28/2016 [facility]:Danielle Tomlinson, [facility]: [phone] FINAL ATTESTATION: By electronically signing this report, I, the attending physician, attestthat I have personally reviewed the images/data for the above examination and agree with the final editedreport. Read By: Jarod Katz M.D. Signed By: Chelsie Yost M.D. on 03/19/2016 at 04:09:25 PM Page 2 of 2 Read By: JAORD KATZ M.D. Signed By: CHELSIE YOST M.D. on 03/19/2016 at 16:09:26 us Danielle Tomlinson MD IMG BI PROCEDURES Final Result from Last 3 Months or Most Recently Relevant to Health Maintenance [place] [address] [place] Care Teams Engineering Program Manager Relationship Specialty Start Date End Date Stewart Lanza MD [address] [place] [facility] PCP - General 10/28/24
--- OUTSIDE RECORDS SUMMARY | 2025-05-23 13:06 | XMS_ITS | Referral Summary ---
Author Organization [employer] ([place], [place], [place], [place]) Address [address] [place] [address] Care Team Providers Care Manager Export Name Role Phone Trupti Pelayo APRN Unavailable [phone] Kierra Roca MD Unavailable [phone] Stewart Lanza MD Primary Care Provider [phone] Allergies Active Allergy Reactions Criticality Noted Date [...] Date Cl[place] rded Speak language other than Ugandan at home Not on file 08/29/2023 Want [...] Advance Directives For more information, please contact: [phone] * Full Code (Latest Code Status on [...] 11:00 PM 10/04/2023 12:45 AM Care Teams Manager Export Relationship Specialty Start Date End Date Stewart Lanza MD [address] [facility] [address] [place] [address] PCP - General Family Medicine 06/13/23 Trupti Pelayo APRN [address] [facility] [address] [place] [address] Cardiology 04/08/23 Kierra Roca MD [address] [facility] [address] [place] [address] Interventional Cardiology 04/08/23
--- OUTSIDE RECORDS SUMMARY | 2025-05-23 13:06 | XMS_ITS | Encounter Summary ---
Author Organization [employer] ([place], [place], [place], [place]) Address [address] [place] [address] Care Team Providers Care Carton Inspector Name Role Phone Trupti Pelayo APRN Unavailable [phone] Kierra Roca MD Unavailable [phone] Stewart Lanza MD Primary Care Provider [phone] Reason for Visit * Reason Comments Medication Refill Encounter Details Date Type Department Care Team (Late st Contact Info) Description 07/09/2023 Refill [facility] Cardiology [address] [place] [address] Trupti Pelayo APRN [address] [facility] [address] [place] [address] Social History Tobacco Use Types [...] on filedocumented in this encounter Care Teams Carton Inspector Relationship Specialty Start Date End Date Stewart Lanza MD [address] [facility] [address] [place] [address] PCP - General Family Medicine 06/13/23 Trupti Pelayo APRN [address] [facility] [address] [id number] Cardiology 04/08/23 Kierra Roca MD [address] [facility] [address] [id number] Interventional Cardiology 04/08/23 documented as of this encounter
--- OUTSIDE RECORDS SUMMARY | 2025-05-23 13:06 | XMS_ITS | Encounter Summary ---
Author Organization [employer] ([place], [place], [place], [place]) Address [address] [place] [address] Care Team Providers Care Hotel Clerk Name Role Phone Shashi Harrell MD Primary Care Provider [phone] Trupti Pelayo APRN Unavailable [phone] Kierra Roca MD Unavailable [phone] Stewart Lanza MD Primary Care Provider [phone] Reason for Visit * Reason Comments Medication Refill Encounter Details Date Type Department Care Team (Late st Contact Info) Description 04/05/2023 Refill [facility] Cardiology [address] [place] [address] Trupti Pelayo APRN [address] [facility] [address] [place], [place] [id number] Social History Tobacco Use Types Packs/Day Years [...] on filedocumented in this encounter Care Teams Hotel Clerk Relationship Specialty Start Date End Date Shashi Harrell MD [address] [place] [id number] PCP - General Family Medicine 04/08/23 06/12/23 Stewart Lanza MD [address] [facility] [address] [place] [address] PCP - General Family Medicine 06/13/23 Trupti Pelayo APRN [address] [place] [address] [address] [place] [address] Cardiology 04/08/23 [place] [address] [place] [address] [address] [place] [address] Interventional Cardiology 04/08/23 documented as of this encounter
== END 2025-05-23 23:59 | disposition home or self-care (01) ==
LOC: RAD 13:03
PROVIDERS: PCP Family Medicine; Visit Provider Family Medicine
DX: Z12.31 Encounter for screening mammogram for malignant neoplasm of breast (principal); R92.323 Mammographic fibroglandular density, bilateral breasts; R92.1 Mammographic calcification found on diagnostic imaging of breast; M81.0 Age-related osteoporosis without current pathological fracture
CPT/HCPCS: 77063; 77067; 77080

== ENCOUNTER 2025-06-16 16:25 | Emergency (ER) | payer MEDICARE, MEDICAID, SELFPAY ==
--- OUTSIDE RECORDS SUMMARY | 2023-10-03 22:38 | XMS_ITS | Encounter Summary ---
Author Organization [employer] ([place], [place], [place], [place], [place]) Address [address] [place] [address] Care Team Providers Care Keno Writer / Runner Name Role Phone Trupti Pelayo APRN Unavailable [phone] Kierra Roca MD Unavailable [phone] Stewart Lanza MD Primary Care Provider [phone] Encounter Details Date Type Department Care Team (Late st Contact Info) Description 10/03/2023 10:38 PM EST Hospital Encounter [facility] 4 Interventional Care Unit 1 [place] [address] Erin Johnson MD [address] [facility], [facility] [address] [place] [address] Social History Tobacco Use Types Packs/Day Years Used Date Smoking Tobacco: Never Smokeless Tobacco: Never Alcohol Use Standard Drinks/Week Comments Never 0 (1 standard drink = 0.6 oz pur e alcohol) PRAPARE - Transportation Answer Date Re corded In the past 12 months, has l ack of transportation kept you from medical appointments or from getting medications? No 10/04/2023 Lack of Transportation (Non-Medical) Not on file 10/04/2023 Family and Community Support Answer Cash e Recorded Help with Day to Day Activities Not on file 08/29/2023 Feeling Lonely or Isolated Not on file 08/29 Educational Attainment Answer Date Clovis rded Speak language other than Greek at home Not on file 08/29/2023 Want help with school or training Not on file 08/29/2023 Substance Use Answer Date Recorded Used prescription meds for non-medical reasons N ot on file 08/29/2023 Used illegal drugs past 12 months Not on file 08/29/2023 Comments Unknown Sex and Gender Information Value Date Recorded Sex Assigned at Not on file Legal Sex Female 3:47 PM CDT Gender Identity Not on file Sexual Orientation Not on file documented as of this encounter Plan of Treatment Not on file documented as of this encounter Visit Diagnoses Not on filedocumented in this encounter Care Teams Keno Writer / Runner Relationship Specialty Start Date End Date Stewart Lanza MD [address] [facility] [address] [place] [address] PCP - General Family Medicine 06/13/23 Trupti Pelayo APRN [address] [place] [address] [address] Cardiology 04/08/23 Kierra Roca MD [address] [facility] [address] [address] Interventional Cardiology 04/08/23 documented as of this encounter
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
--- OUTSIDE RECORDS SUMMARY | 2024-09-15 09:15 | XMS_ITS ---
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 Name Role Phone Stewart Lanza Unavailable [phone] Allergies Allergen (clinical drug ingredient) Drug/Non Drug Allergy documented on EMR Reaction Allergy Type Onset Date Status lisinopril Lisinopril Unknown Drug Allergy Activ e Results Component Value Reference Range Notes CBC Venipuncture (in house) Reviewed date:09/16/2024 09:30:57 AM Interpretation: Performing Lab: Notes/Report: wbc 5.6 3.5 - 10 lymph 32.3% 15 - 50 mid 6.3% 2 - 15 gran 61.4% 35 - 80 rbc 4.53 3.5 - 5.5 hgb 13.8 11.5 - 16.5 hct 40.0 35 - 55 mcv 88.2 75 - 100 mch 30.4 25 - 35 mchc 34.5 31 - 38 platlet 256 100 - 400 P-Comprehensive Metabolic Pa shane (CMP) Reviewed date:09/22/2024 12:55:57 PM Interpretation:Normal Performing Lab: Notes/Report: Test performed by [facility] [address] [place] [address] , [address], [place] [address] Joey Rock MD, Manager Medical Writing CLIA: [id number] Sodium 141 135-145 mmol/L Potassium 4.0 3.5-5.3 mmol/L Chloride 104 97-108 mmol/L CO2 26 22-32 mmol/L Glucose 100 65-99 mg/dL BUN 17 8-23 mg/dL Creatinine 0.74 0.50-1.00 mg/dL Calcium 10.3 8.6-10.4 mg/dL eGFR by Creatinine 87 >59 mL/min/1.73m2 Protein 7.2 6.0-8.3 g/dL Albumin 4.6 3.5-5.3 g/dL Alkaline Phosphatase 78 35-121 IU/L ALT (SGPT) 16 <5-47 IU/L AST (SGOT) 16 <5-40 IU/L Bilirubin, Total 0.5 <0.2-1.2 mg/dL A/G Ratio 1.8 1.1-2.5 U-M-Uncecqhv Protein (CRP) Reviewed date:09/22/2024 12:55:57 PM Interpretation:Normal Performing Lab: Notes/Report: Test performed by [facility] [address] [place] [address] , [place] [address] Joey Rock MD, Manager Medical Writing CLIA: [id number] C-Reactive Protein (CRP) 0.04 <0.50 mg/dL P-Sed Rate (ESR) Reviewed date:09/22/2024 12:55:57 PM Interpretation:Normal Performing Lab: Notes/Report: Test performed by [facility] [address] [place] [address] , [place] [address] Joey Rock MD, Manager Medical Writing CLIA: [id number] Erythrocyte Sedimentation Ra te (ESR), Automated 9 <31 mm/hr P-TSH reflex to FT4 Reviewed date:09/22/2024 12:55:57 PM Interpretation:Normal Performing Lab: Notes/Report: Test performed by [facility] [address] [place] [address] , [address], [place] [address] Joey Rock MD, Manager Medical Writing CLIA: [id number] TSH reflex to FT4 1.58 0.43-5.25 mU/L P-Vitamin D 25-Hydroxy Reviewed date:09/22/2024 12:55:57 PM Interpretation:Normal Performing Lab: Notes/Report: Test performed by [facility] [address] [place] [address] , [address], [place] [address] Joey Rock MD, Manager Medical Writing CLIA: [id number] Vitamin D 25-Hydroxy 54.7 30.0-100.0 ng/mL Interpretation of Vitamin D 25 [place]: < 20 ng/mL - Deficiency 20 - 29 ng/mL - Insufficiency 30 - 100 ng/mL - Sufficiency > 100 ng/mL - Super-therapeutic- toxicity may occur above this level. Clinical correlation required. X ray : Knee, right Reviewed date:09/16/2024 09:08:38 AM Interpretation:degenerative changes and small joint effusion Performing Lab: Notes/Report: degenerative changes and small joint effusion Reason For Referral Diagnosis 1 Pain in right knee ( M25.561) [facility] Referring Provider First Name Stewart Referring Provider Last Name Myla Referring Provider [facility] Referred Provider Stuart Preciado Referred Provider Specialty Orthopedic S urgery General Notes Rosibel Moncada 9:10:30 AM > 09/23/2024 at 10:45am; cannot leave vm for patient; patient informed Referral Priority Routine REASON FOR VISIT trouble walking; knee pain Medications Medication SIG (Take, Route, Frequency, Duration) Notes Start Date End Date Status Aspirin 81 MG 1 tab(s) orally once a day; Duration: 30 day(s) Active Co Q-10 200 MG as directed Orally Active Atorvastatin Calcium 40 MG 1 tablet Oral ly Once a day; Duration: 90 days 11/12/2023 Active Vitamin D3 125 MCG (5000 UT) 1 tablet on the tongue and allow to dissolve Orally Once a day Active Ezetimibe 10 MG 1 tab(s) orally once a day; Duration: 90 days Active Metoprolol Succinate ER 25 MG 1 tablet Orally Once a day; Duration: 90 days Active Ranolazine ER 1000 MG 1 tab(s) orally 2 times a day; Duration: 90 days Active Vital Signs Blood pressure systolic 140 mm Hg 09/15/19 25 Blood pressure diastolic 80 mm Hg 025 Heart Rate 92 /min 09/15/2024 Height 62 in 09/15/2024 Weight 98.8 lbs 09/15/2024 BMI 18.07 kg/m2 09/15/2024 Encounters Encounter Location Date Provider Diagnosis [facility] [address] [place] [id number] 09/15/2024 Stewart Lanza Pain in right knee M25.561 ; Weight loss R63.4 ; Vitamin D deficiency E55.9 and Coronary artery disease involving [place] coronary artery of [place] heart without angina pectoris I25.10 Assessments Encounter Date Diagnosis (ICD Code) Assessment Notes Treatment Notes Treatment Clinical Notes Section Notes 09/15/2024 Pain in right knee (ICD-10 - M25.561) 09/15/2024 Weight loss (ICD-10 - R63.4) 09/15/2024 Vitamin D deficiency (ICD-10 - E55.9) 09/15/2024 Coronary artery disease involving [place] coronary artery of [place] heart without angina pectoris (ICD-10 - I25.10) Plan Of Treatment Medication Medication Name Sig Start Date Stop Date Notes Ranolazine ER 1000 MG 1 tab(s) orally 2 times a day; Duration: 90 days Referrals Referral Date Details 09/15/2024 09/15/2024, Stuart neri Next Appt Details Follow Up: via phone to repo rt progress, Reason: Provider Name:Stewart doran, 09/23/2025 01:30:00 PM, [address] [facility] [address] [facility], [address] , [place], [place], [phone], Progress Notes * ROSHAN PYLEPARESHB:1955 (69 yo F)Acc No.[id number]:09/15/2024 Progress Notes Patient: COMPA SEPULVEDA Provider: Julieta Lanza M.D. :1955 A ge:68 Y S ex:Female Date:09/15/2024 Address:[address] [place] [address] Subjective: * Chief Complaints: * 1 . Trouble walking; knee pain. * HPI: K nee/Aguilar: 68 year old female presents with c/o knee pain P t complains of worsening rt knee pain. Pt states that she does have arthritis in her knee but it takes 3-5 minutes for her to get up and going after standing up. Pt states she is having a hard time walking and putting weight on rt knee. * ROS: D ERMATOLOGY: no R catarino. [...] Heart Cath, numerous stents placed 2011, 2012, 2015, cochlear implant x 2 . * Hospitalization/Major [...] MG Capsule as directed Orally , Taking Aspirin 81 MG Tablet Delayed Release 1 tab(s) orally once a day , Taking Ranolazine ER 1000 MG Tablet Extended Release 12 Hour 1 tab(s) orally 2 times a day , Taking Atorvastatin Calcium 40 MG Tablet 1 tablet Orally Once a day , Taking Vitamin D3 125 MCG (5000 UT) Tablet Disintegrating 1 tablet on the tongue and allow to dissolve Orally Once a day , Taking Ezetimibe 10 MG Tablet 1 tab(s) orally once a day , Taking Metoprolol Succinate ER 25 MG Tablet Extended Release 24 Hour 1 tablet Orally Once a day , Medication List reviewed and reconciled with the patient * Allergies: L isinopril. 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 * Examination: G eneral Examination: General Appearance: N AD. H eart: R SR. L ungs:?clear to auscultation. E xtremities: a rthritic changes at right knee, minimal joint line tenderness, full ROM. Assessment: * Assessment: 1. P ain in right knee - M25.561 (Primary) 2 . W eight loss - R63.4 ? 3 . V itamin D deficiency - E55.9 4 . C oronary artery disease involving [place] coronary artery of [place] heart without angina pectoris - I25.10 Plan: * Treatment: ? Referral To:Stuart Preciado??Orthopedic Surgery ?Reason: 2.?Weight loss?LAB: P-Comprehensive Metabolic Panel (CMP) (Collection Date & Time - 09/15/2024 01:45 PM)?Normal* Value Reference Range A /G Ratio 1.8 1.1-2.5 - * A lbumin 4.6 3.5-5.3 - g/dL * A lkaline Phosphatase 78 35-121 - IU/L * A LT (SGPT) 16 <5-47 - IU/L * A ST (SGOT) 16 <5-40 - IU/L * B ilirubin, Total 0.5 <0.2-1.2 - mg/dL * B UN 17 8-23 - mg/dL * C alcium 10.3 8.6-10.4 - mg/dL * C hloride 104 97-108 - mmol/L * C O2 26 22-32 - mmol/L * C reatinine 0.74 0.50-1.00 - mg/dL * G lucose 100 H 65-99 - mg/dL * P otassium 4.0 3.5-5.3 - mmol/L * S odium 141 135-145 - mmol/L * P rotein 7.2 6.0-8.3 - g/dL * e GFR by Creatinine 87 >59 - mL/min/1.73m2 * Brandi Gimenez 09/16/2024 4:26:4 3 PM >See phone encounter ?LAB: W-W-Usqrfqyh Protein (CRP) (Collection Date & Time - 09/15/2024 01:45 PM)?Normal* Value Reference Range C -Reactive Protein (CRP) 0.04 <0.50 - mg/dL * Brandi Gimenez 09/16/2024 4:26:4 3 PM >See phone encounter ?LAB: P-Sed Rate (ESR) (Collection Date & Time - 09/15/2024 01:45 PM)?Normal * Value Reference Range E rythrocyte Sedimentation Rate (ESR), Automated 9 <31 - mm/hr * Brandi Gimenez 09/16/2024 4:26:4 3 PM >See phone encounter ?LAB: P-TSH reflex to FT4 (Collection Date & Time - 09/15/2024 01:45 PM)? Normal* Value Reference Range T SH reflex to FT4 1.58 0.43-5.25 - mU/L * Brandi Gimenez 09/16/2024 4:26:4 3 PM >See phone encounter ?LAB: CBC Venipuncture (in house) (Collection Date & Time - 09/15/2024)* Value Reference Range w bc 5.6 3.5 - 10 * l ymph 32.3% 15 - 50 * m id 6.3% 2 - 15 * g ran 61.4% 35 - 80 * r bc 4.53 3.5 - 5.5 * h gb 13.8 11.5 - 16.5 * h ct 40.0 35 - 55 * m cv 88.2 75 - 100 * m ch 30.4 25 - 35 * m chc 34.5 31 - 38 * p latlet 256 100 - 400 * Rosie Larios 09/15/2024 4:02 :46 PM > 3.?Vitamin D deficiency?LAB: P-Vitamin D 25-Hydroxy (Collection Date & Time - 09/15/2024 01:45 PM)? Normal* Value Reference Range V itamin D 25-Hydroxy 54.7 30.0-100.0 - ng/mL * Brandi Gimenez 09/16/2024 4:26:4 3 PM >See phone encounter 4.?Coronary artery disease involving [place] coronary artery of [place] heart without angina pectoris? Refill Ranolazine ER Tablet Extended Release 12 Hour, 1000 MG, 1 tab(s), orally, 2 times a day, 90 days, 180, Refills 1.?? * Procedure Codes: G 2211 Complex e/[place], [address] CBC WITH AUTO DIFF, 3077F SYST BP = 140 MM HG6 IT, 3079F DIAST BP 80-89 MM HG * Follow Up: v ia phone to report progress * Images: Billing Information: * Visit Code: 02500 Office Visit, Est Pt., Level 4. * Procedure Codes: G2211 Complex e/[place]. [address] CBC WITH AUTO DIFF. 3077F SYST BP = 140 MM HG6 IT. 3079F DIAST BP 80-89 MM HG. * Electronic signature of Alicia Lanza MD on 06/16/2025 at 04:40 PM EST Sign off status: Pending * Provider: Julieta Lanza M.D. Date: 0 09/15/2024 Generated for Jaquelinei alcides/Duncan/eTransmitting on: 1 08/16/2024 04:40 PM EST History and Physical Notes * HPI (History of Present Illness) Category Sub-Category Detail Notes Category Not es Knee/Aguilar knee pain Pt complains of worsening rt knee pain. Pt states that she does have arthritis in her knee but it takes 3-5 minutes for her to get up and going after standing up. Pt states she is having a hard time walking and putting weight on rt knee Examination Category Sub-Category Detail Notes Category Not es General Examination Heart: RSR Lungs: clear to auscultatio n Extremities: arthritic changes at right knee, minimal joint line tenderness, full ROM General Appearance: NAD Consultation Request Notes Referral Date Referring Provider Referred Provider Not es 09/15/2024 Stewart Lanza, Gene
--- OUTSIDE RECORDS SUMMARY | 2024-11-18 04:30 | XMS_ITS ---
Author Organization [facility] Address [address] [place], [place] [id number] Care Team Providers Care Geoscience Specialist Name Role Phone Stewart Lanza Unavailable [phone] Allergies Allergen (clinical drug ingredient) Drug/Non Drug Allergy documented on EMR Reaction Allergy Type Onset Date Status lisinopril Lisinopril Unknown Drug Allergy Activ e Results Component Value Reference Range Notes P-Comprehensive Metabolic Pa shane (CMP) Reviewed date:11/19/2024 01:11:44 PM Interpretation: Normal Performing Lab: Notes/Report: Test performed by [facility] , [address], [place] [address] Joey Rock MD, Optical Mechanic Apprentice CLIA: [id number] Sodium 140 135-145 mmol/L Potassium 4.2 3.5-5.3 mmol/L Chloride 102 97-108 mmol/L CO2 24 22-32 mmol/L Glucose 102 65-99 mg/dL BUN 12 8-23 mg/dL Creatinine 0.85 0.50-1.00 mg/dL Calcium 9.9 8.6-10.4 mg/dL eGFR by Creatinine 74 >59 mL/min/1.73m2 Protein 6.7 6.0-8.3 g/dL Albumin 4.4 3.5-5.3 g/dL Alkaline Phosphatase 84 35-121 IU/L ALT (SGPT) 15 <5-47 IU/L AST (SGOT) 16 <5-40 IU/L Bilirubin, Total 0.5 <0.2-1.2 mg/dL A/G Ratio 1.9 1.1-2.5 P-Vitamin D 25-Hydroxy Reviewed date:11/19/2024 01:11:44 PM Interpretation: Normal Performing Lab: Notes/Report: Test performed by [facility], [employer] [address] [place] [address] , [address], [place] [address] Joey Rock MD, Optical Mechanic Apprentice CLIA: [id number] Vitamin D 25-Hydroxy 49.5 30.0-100.0 ng/mL Interpretation of Vitamin D 25 OH: < 20 ng/mL - Deficiency 20 - 29 ng/mL - Insufficiency 30 - 100 ng/mL - Sufficiency > 100 ng/mL - Super-therapeutic- toxicity may occur above this level. Clinical correlation required. REASON FOR VISIT 6 months Medications Medication SIG (Take, Route, Frequency, Duration) Notes Start Date End Date Status Vitamin D3 125 MCG (5000 UT) 1 tablet on the tongue and allow to dissolve Orally Once a day Active Ranolazine ER 1000 MG 1 tab(s) orally 2 times a day Active Ezetimibe 10 MG 1 tab(s) orally once a day Active Aspirin 81 MG 1 tab(s) orally once a day Active Co Q-10 200 MG as directed Orally Active Metoprolol Succinate ER 25 MG 1 tablet Orally Once a day Active Atorvastatin Calcium 40 MG 1 tablet Oral ly Once a day 11/12/2023 Active Vital Signs Blood pressure systolic 132 mm Hg 11/19/19 25 Blood pressure diastolic 80 mm Hg 025 Heart Rate 76 /min 11/18/2024 Height 62 in 11/18/2024 Weight 102.6 lbs 11/18/2024 BMI 18.76 kg/m2 11/18/2024 Encounters Encounter Location Date Provider Diagnosis [facility] [address] [facility] [address] [place] [address], [place] [id number] 11/18/2024 Stewart Lanza Primary hypertension I10 ; Pure hypercholesterolemia E78.00 ; Vitamin D deficiency E55.9 ; Coronary artery disease involving [place] coronary artery of [place] heart without angina pectoris I25.10 ; Carotid artery disease without cerebral infarction I77.9 and BMI less than 19,adult Z68.1 Assessments Encounter Date Diagnosis (ICD Code) Assessment Notes Treatment Notes Treatment Clinical Notes Section Notes 11/18/2024 Primary hypertension (ICD-10 - I10) 11/18/2024 Pure hypercholesterolemia (ICD-10 - E78.00) 11/18/2024 Vitamin D deficiency (ICD-10 - E55.9) 11/18/2024 Coronary artery dise ase involving [place] coronary artery of [place] heart without angina pectoris (ICD-10 - I25.10) 11/18/2024 Carotid artery disea se without cerebral infarction (ICD-10 - I77.9) 11/18/2024 BMI less than 19,jacquie lt (ICD-10 - Z68.1) Plan Of Treatment Medication Medication Name Sig Start Date Stop Date Notes Vitamin D3 125 MCG (5000 UT) 1 tablet on the tongue and allow to dissolve Orally Once a day Ranolazine ER 1000 MG 1 tab(s) orally 2 times a day Ezetimibe 10 MG 1 tab(s) orally once a day Aspirin 81 MG 1 tab(s) orally once a day Metoprolol Succinate ER 25 MG 1 tablet Orally Once a day Atorvastatin Calcium 40 MG 1 tablet Orally Once a day 10/2023 Next Appt Details Follow Up: 6 Months, Reason: Provider Name:Stewart Singer , 09/23/2025 01:30:00 PM, [address] [facility] [address], [address], [place], [place], [id number], Progress Notes * ROSHAN PYLEPARESHB:1955 (69 yo F)Acc No.[id number]:11/18/2024 Progress Notes Patient: COMPA SEPULVEDA Provider: Julieta Lanza M.D. :1955 A ge:68 Y S ex:Female Date:11/18/2024 Address:[address] [place], [place] [phone] Subjective: * Chief Complaints: * 1 . 6 months. * HPI: C ardiology: 68 year old female presents with c/o Blood Pressure Elevated?Pt here for 6 mo f/u on hypertension, states she is doing well and does not have any concerns.? c/o Hyperlipidemia P t is not fasting today. * ROS: D ERMATOLOGY: no R catarino. n o H kirby. G ASTROENTEROLOGY: no N ausea. n o V omiting. U ROLOGY: no D ifficulty urinating. n o B lood in urine. * Medical History: C oronary Artery Disease, Hyperlipidemia, Hypertension, Carotid artery disease, Allergic Rhinitis, Arhtritis, Hearing loss, Cervical spine osteoarthritis, Osteoarthritis, right knee, s/p ortho eval in 2024. * Surgical History: O RIF left leg/knee fracture 1993, Carotid Endartectomy 2013, Heart Cath, numerous stents placed 2011, 2012, 2014, cochlear implant x 2 . * Hospitalization/Major Diagno stic Procedure: D enies Past Hospitalization. * Family History: C kerline: alive, diagnosed with Diabetes. F ather: diagnosed [...] tab(s) orally once a day , Taking Atorvastatin Calcium 40 [...] tablet Orally Once a day , Taking Ranolazine ER 1000 MG Tablet Extended Release 12 Hour 1 tab(s) orally 2 times a day , Medication List reviewed and reconciled with the patient * Allergies: L isinopril. Objective: * Vitals: W t: 102.6, Temp: 97.8, BP: 132/80, HR: 76, Nurse: chuck, Ht: 62, BMI:18.76. * Examination: C ardiology: General Appearance: p [...] 4 . C oronary artery disease involving [place] coronary artery of [place] heart without angina pectoris - I25.10 & #160; 5 . C arotid artery disease without cerebral infarction - I77.9 6 . B PR less than 19,adult - Z68.1 Plan: * Treatment: Value Reference Range A /G Ratio 1.9 1.1-2.5 - * A lbumin 4.4 3.5-5.3 - g/dL * A lkaline Phosphatase 84 35-121 - IU/L * A LT (SGPT) 15 <5-47 - IU/L * A ST (SGOT) 16 <5-40 - IU/L * B ilirubin, Total 0.5 <0.2-1.2 - mg/dL * B UN 12 8-23 - mg/dL * C alcium 9.9 8.6-10.4 - mg/dL * C hloride 102 97-108 - mmol/L * C O2 24 22-32 - mmol/L * C reatinine 0.85 0.50-1.00 - mg/dL * G lucose 102 H 65-99 - mg/dL * P otassium 4.2 3.5-5.3 - mmol/L * S odium 140 135-145 - mmol/L * P rotein 6.7 6.0-8.3 - g/dL * e GFR by Creatinine 74 >59 - mL/min/1.73m2 * Melany Ventura 11/19/2024 01: 10:16 PM > pt informed of results 2.?Pure hypercholesterolemia? Continue Atorvastatin Calcium Tablet, 40 MG, 1 tablet, Orally, Once a day;?Continue Ezetimibe Tablet, 10 MG, 1 tab(s), orally, once a day.?LAB: P-Comprehensive Metabolic Panel (CMP) (Collection Date & Time - 11/18/2024 08:41 AM)?Normal* Value Reference Range A /G Ratio 1.9 1.1-2.5 - * A lbumin 4.4 3.5-5.3 - g/dL * A lkaline Phosphatase 84 35-121 - IU/L * A LT (SGPT) 15 <5-47 - IU/L * A ST (SGOT) 16 <5-40 - IU/L * B ilirubin, Total 0.5 <0.2-1.2 - mg/dL * B UN 12 8-23 - mg/dL * C alcium 9.9 8.6-10.4 - mg/dL * C hloride 102 97-108 - mmol/L * C O2 24 22-32 - mmol/L * C reatinine 0.85 0.50-1.00 - mg/dL * G lucose 102 H 65-99 - mg/dL * P otassium 4.2 3.5-5.3 - mmol/L * S odium 140 135-145 - mmol/L * P rotein 6.7 6.0-8.3 - g/dL * e GFR by Creatinine 74 >59 - mL/min/1.73m2 * Melany Ventura 11/19/2024 01: 10:16 PM > pt informed of results 3.?Vitamin D deficiency? Continue Vitamin D3 Tablet Disintegrating, 125 MCG (5000 UT), 1 tablet on the tongue and allow to dissolve, Orally, Once a day.?LAB: P-Vitamin D 25-Hydroxy (Collection Date & Time - 11/18/2024 08:41 AM)? Normal* Value Reference Range V itamin D 25-Hydroxy 49.5 30.0-100.0 - ng/mL * Melany Ventura 11/19/2024 01: 10:16 PM > pt informed of results 4.?Coronary artery disease involving coquille coronary artery of coquille heart without angina pectoris? Continue Aspirin Tablet Delayed Release, 81 MG, 1 tab(s), orally, once a day;?Continue Ranolazine ER Tablet Extended Release 12 Hour, 1000 MG, 1 tab(s), orally, 2 times a day.?? * Procedure Codes: G 2211 Complex e/m visit add on, 3075F SYST BP GE 130 - 139MM HG, 3079F DIAST BP 80-89 MM HG * Follow Up: 6 Months * Images: Billing Information: * Visit Code: 54771 Office Visit, Est Pt., Level 4. * Procedure Codes: G2211 Complex e/m visit add on. 3075F SYST BP GE 130 - 139MM HG. 3079F DIAST BP 80-89 MM HG. * Electronic signature of Alicia Lanza MD on 06/16/2025 at 04:37 PM EST Sign off status: Pending * Provider: Julieta Lanza M.D. Date: 0 11/18/2024 Generated for Cyndee mcgrath/Duncan/Tino on: 1 08/16/2024 04:37 PM EST History and Physical Notes * HPI (History of Present Illness) Category Sub-Category Detail Notes Category Not es Cardiology Blood Pressure Elevated Pt here for 6 mo f/u on hypertension, states she is doing well and does not have any concerns Hyperlipidemia Pt is not fasting to day Examination Category Sub-Category Detail Notes Category Not es Cardiology Lungs: clear, no rales or wheezes HEENT: unremarkable Heart sounds: RRR, normal S1, S2 Extremities: no leg edema General Appearance: pleasant, NAD
--- OUTSIDE RECORDS SUMMARY | 2024-12-22 06:45 | XMS_ITS ---
Author Organization [facility] Address [address] [place] [id number] Care Team Providers Care Field Support Rep Name Role Phone Myla Stewart Unavailable [phone] Allergies Allergen (clinical drug ingredient) Drug/Non Drug Allergy documented on EMR Reaction Allergy Type Onset Date Status lisinopril Lisinopril Unknown Drug Allergy Activ e REASON FOR VISIT fell on sternum Medications Medication SIG (Take, Route, Frequency, Duration) Notes Start Date End Date Status Co Q-10 200 MG as directed Orally Active Ezetimibe 10 MG 1 tab(s) orally once a day; Duration: 90 days Active Atorvastatin Calcium 40 MG 1 tablet Oral ly Once a day; Duration: 90 days Active Ranolazine ER 1000 MG 1 tab(s) orally 2 times a day Active Vitamin D3 125 MCG (5000 UT) 1 tablet on the tongue and allow to dissolve Orally Once a day Active Metoprolol Succinate ER 25 MG 1 tablet Orally Once a day Active Aspirin 81 MG 1 tab(s) orally once a day Active Vital Signs Blood pressure systolic 170 mm Hg 12/23/19 25 Blood pressure diastolic 86 mm Hg 025 Heart Rate 67 /min 12/22/2024 Height 62 in 12/22/2024 Weight 101.4 lbs 12/22/2024 BMI 18.54 kg/m2 12/22/2024 Encounters Encounter Location Date Provider Diagnosis [facility] [address] [place] [id number] 12/22/2024 Stewart Lanza Chest wall pain R07. 89 ; Primary hypertension I10 and Body mass index (BMI) less than 19 Z68.1 Assessments Encounter Date Diagnosis (ICD Code) Assessment Notes Treatment Notes Treatment Clinical Notes Section Notes 12/22/2024 Chest wall pain (ICD-10 - R07.89) symptomatic treatment of pain. Return if worsening of pain or developement of new symptoms 12/22/2024 Primary hypertension (ICD-10 - I10) 12/22/2024 Body mass index (BMI) less than 19 (ICD-10 - Z68.1) Plan Of Treatment Medication Medication Name Sig Start Date Stop Date Notes Metoprolol Succinate ER 25 MG 1 tablet Orally Once a day Treatment Notes Assessment Notes Chest wall pain symptomatic treatmen t of pain. Return if worsening of pain or developement of new symptoms Next Appt Details Follow Up: via phone to repo rt progress, Reason: Provider Name:Stewart Singer ry, 09/23/2025 01:30:00 PM, [address], [address], [place], [place], [phone], Progress Notes * ROSHAN PYLEPARESHB:1955 (69 yo F)Acc No.[id number]:12/22/2024 Progress Notes Patient: COMPA SEUPLVEDA Provider: Julieta Lanza M.D. :1955 A ge:68 Y S ex:Female Date:12/22/2024 Address:[address] [place] [address], [facility] Subjective: * Chief Complaints: * 1 . Fell on sternum. * HPI: C hest: 68 year old female presents with c/o Direct Trauma P t states 9-10 days ago she was getting out of her recliner and caught her foot and landed on her chest. Pt rates the pain a 7-8 at night when she lays down. Pt states she has been using a CBD cream and that helps her go to sleep. * ROS: D ERMATOLOGY: no R catarino. n o H kirby. G ASTROENTEROLOGY: no N ausea. n o V omiting. n o D iarrhea.? U ROLOGY: no D ifficulty urinating. n [...] 2015, cochlear implant x 2 . * Family History: Whitney churchill: alive, diagnosed with Diabetes. F ather: diagnosed with Diabetes. M other: diagnosed with Diabetes. 2 brother(s) , 1 sister(s) . 1 son(s) , 3 daughter(s) . . * Social History: C URRENT TOBACCO USE: No . C affeine: yes, frequency: Coffee daily. Alcohol: yes, 1-2 Times A Year. * Medications: T aking Co Q-10 200 MG Capsule as directed Orally , Taking Metoprolol Succinate ER 25 MG Tablet Extended Release 24 Hour 1 tablet Orally Once a day , Taking Aspirin 81 MG Tablet Delayed Release 1 tab(s) orally once a day , Taking Vitamin D3 125 MCG (5000 UT) Tablet Disintegrating 1 tablet on the tongue and allow to dissolve Orally Once a day , Taking Ranolazine ER 1000 MG Tablet Extended Release 12 Hour 1 tab(s) orally 2 times a day , Taking Atorvastatin Calcium 40 MG Tablet 1 tablet Orally Once a day , Taking Ezetimibe 10 MG Tablet 1 tab(s) orally once a day , Medication List reviewed and reconciled with the patient * Allergies: L isinopril. Objective: * Vitals: W t: 101.4, Temp: 98.0, BP: 170/86, HR: 67, Nurse: SOFIYA, Ht: 62, Repeat BP: 138/82, BMI:18.54. * Examination: G eneral Examination: General Appearance: N AD. C hest: n ormal shape and expansion, tenderness to palpation along the sternum and left anterior chest wall. H eart: R SR. L ungs: c lear to auscultation. Assessment: * Assessment: 1. C hest wall pain - R07.89 (Primary) 2 . P rimary hypertension - I10 3 . B joan mass index (BMI) less than 19 - Z68.1 Plan: * Treatment: 2. P rimary hypertension Continue Metoprolol Succinate ER Tablet Extended Release 24 Hour, 25 MG, 1 tablet, Orally, Once a day. * Procedure Codes: G 2211 Complex e/m visit add on, 3075F SYST BP GE 130 - 139MM HG, 3079F DIAST BP 80-89 MM HG * Follow Up: v ia phone to report progress * Images: Billing Information: * Visit Code: 33749 Office Visit, Est Pt., Level 3. * Procedure Codes: G2211 Complex e/m visit add on. 3075F SYST BP GE 130 - 139MM HG. 3079F DIAST BP 80-89 MM HG. * Electronic signature of Alicia Lanza MD on 06/16/2025 at 04:39 PM EST Sign off status: Pending * Provider: Julieta Lanza M.D. Date: 0 12/22/2024 Generated for Cyndee mcgrath/Duncan/Brendaitting on: 08/16/2024 04:39 PM EST History and Physical Notes * HPI (History of Present Illness) Category Sub-Category Detail Notes Category Not es Chest Trauma Pt states 9-10 d ays ago she was getting out of her recliner and caught her foot and landed on her chest. Pt rates the pain a 7-8 at night when she lays down. Pt states she has been using a CBD cream and that helps her go to sleep Examination Category Sub-Category Detail Notes Category Not es General Examination Heart: RSR Lungs: clear to auscultatio n General Appearance: NAD Chest: normal shape and exp ansion, tenderness to palpation along the sternum and left anterior chest wall
--- OUTSIDE RECORDS SUMMARY | 2025-02-18 05:00 | XMS_ITS ---
[facility] Address [address] [facility] [address] [place], [place] [id number] Care Team Providers Care Traveling Clerk Name Role Phone Stewart Lanza Unavailable [phone] Allergies Allergen (clinical drug ingredient) Drug/Non Drug Allergy documented on EMR Reaction Allergy Type Onset Date Status lisinopril Lisinopril Unknown Drug Allergy Activ e Results Component Value Reference Range Notes P-Basic Metabolic Panel (BMP ) Reviewed date:02/22/2025 12:01:05 PM Interpretation:Normal Performing Lab: Notes/Report: Test performed by [facility] [address] [place] [address] , [address], [place] [address] Joey Rock MD, Pigment Mixer CLIA: [id number] Sodium 141 135-145 mmol/L Potassium 4.2 3.5-5.3 mmol/L Chloride 105 97-108 mmol/L CO2 25 20-32 mmol/L Glucose 94 65-99 mg/dL BUN 12 8-23 mg/dL Creatinine 0.73 0.50-1.00 mg/dL Calcium 9.8 8.6-10.4 mg/dL eGFR by Creatinine 88 >59 mL/min/1.73m2 REASON FOR VISIT 3 week f/u Medications Medication SIG (Take, Route, Frequency, Duration) Notes Start Date End Date Status Potassium Chloride ER 8 MEQ 1 capsule wi th food Orally daily; Duration: 30 days 01/28/2025 Active Metoprolol Succinate ER 25 MG 1 tablet Orally Once a day; Duration: 90 days Active Ezetimibe 10 MG 1 tab(s) orally [...] Q-10 200 MG as directed Orally Active Vital Signs Blood pressure systolic 130 mm Hg 02/19/20 25 Blood pressure diastolic 74 mm Hg 025 Heart Rate 76 /min 02/18/2025 Height 62 in 02/18/2025 Weight 103.4 lbs 02/18/2025 BMI 18.91 kg/m2 02/18/2025 Encounters Encounter Location Date Provider Diagnosis [facility] [address] [place] [address] [address] [facility] [address] [place], [place] [id number] 02/18/2025 Stewart Lanza Vertebral artery aneurysm I72.6 and Hypokalemia E87.6 Assessments Encounter Date Diagnosis (ICD Code) Assessment Notes Treatment Notes Treatment Clinical Notes Section Notes 02/18/2025 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 She will call with the name of the provider 02/18/2025 Hypokalemia (ICD-10 - E87.6) Plan Of Treatment Treatment Notes Assessment Notes Vertebral artery aneurysm Patient wants to see the same provider she previously saw for her carotid surgery. She will call with the name of the provider Next Appt Details Follow Up: 2 Months, Reason: Provider Name:Stewart Singer ry, 09/23/2025 01:30:00 PM, formerly [facility] [address] [facility], [address], [place], [place], [id number], Progress Notes * ARABELLA PYLEB:1955 (69 yo F)Acc No.[id number]:02/18/2025 Progress Notes Patient: COMPA SEPULVEDA Provider: Julieta Lanza M.D. :1955 A ge:69 Y S ex:Female Date:02/18/2025 Address:[address] [place] [address], [place], [place] Subjective: * Chief Complaints: * 1 . 3 week f/u. * HPI: O pthalmology: 69 year old female presents with c/o blurring of vision P t here for 3 week f/u on blurry vision. Pt states she is doing well and she has not had any issues.? * ROS: D ERMATOLOGY: no R catarino. [...] tablet Orally Once a day , Taking Potassium Chloride ER 8 MEQ Capsule Extended Release 1 capsule with food Orally daily , Medication List reviewed and reconciled with the patient * Allergies: L isinopril. Objective: * Vitals: W t: 103.4, Temp: 97.9, BP: 130/74, HR: 76, Nurse: kk, Ht: 62, BMI:18.91. * Examination: G eneral Examination: General Appearance: N AD. H eart: R SR. L ungs:?clear to auscultation. Assessment: * Assessment: 1. V ertebral artery aneurysm - I72.6 (Primary) 2 . H ypokalemia - E87.6? Plan: * Treatment: 2. H ypokalemia L AB: P-Basic Metabolic Panel (BMP) (Collection Date & Time - 02/18/2025 09:30 AM) N ormal Value Reference Range B UN 12 8-23 - mg/dL * C alcium 9.8 8.6-10.4 - mg/dL * C hloride 105 97-108 - mmol/L * C O2 25 20-32 - mmol/L * C reatinine 0.73 0.50-1.00 - mg/dL * G lucose 94 65-99 - mg/dL * P otassium 4.2 3.5-5.3 - mmol/L * S odium 141 135-145 - mmol/L * e GFR by Creatinine 88 >59 - mL/min/1.73m2 * Alexa Irwin 02/22/2025 12:00: 53 PM EDT > Pt informed * Procedure Codes: G 2211 Complex e/m visit add on, 1036F TOBACCO NON-USER, G8783 BP SCR PRFRM RCMDD DEFIND SCR INTVL, G8752 MOST RECENT SYSTOLIC BP < 140MM HG, G8754 MOST RECENT DIASTOLIC BP < 90MM HG * Follow Up: 2 Months * Images: Billing Information: * Visit Code: 90760 Office Visit, Est Pt., Level 3. * Procedure Codes: G2211 Complex e/m visit add on. 1036F TOBACCO NON-USER. G8783 BP SCR PRFRM RCMDD DEFIND SCR INTVL. G8752 MOST RECENT SYSTOLIC BP < 140MM HG. G8754 MOST RECENT DIASTOLIC BP < 90MM HG. * Electronic signature of Alicia Lanza MD on 06/16/2025 at 04:39 PM EST Sign off status: Pending * Provider: Julieta Lanza M.D. Date: 0 02/18/2025 Generated for Cyndee mcgrath/Duncan/eTransmitting on: 1 08/16/2024 04:39 PM EST History and Physical Notes * HPI (History of Present Illness) Category Sub-Category Detail Notes Category Not es Opthalmology blurring of vision Pt here for 3 week f/u on blurry vision. Pt states she is doing well and she has not had any issues Examination Category Sub-Category Detail Notes Category Not es General Examination Heart: RSR Lungs: clear to auscultatio n General Appearance: NAD
--- OUTSIDE RECORDS SUMMARY | 2025-04-07 08:30 | XMS_ITS ---
Author Organization Formerly [facility] Address [address] [phone] Care Team Providers Care Seaming Machine Operator Name Role Phone Stewart Lanza Unavailable [phone] AdanLien puckett Unavailable [phone] Allergies Allergen (clinical drug ingredient) Drug/Non Drug Allergy documented on EMR Reaction Allergy Type Onset Date Status lisinopril Lisinopril Unknown Drug Allergy Activ e REASON FOR VISIT poss infected gum area Medications Medication SIG (Take, Route, Frequency, Duration) Notes Start Date End Date Status Ezetimibe 10 MG 1 tab(s) orally once a day; Duration: 90 days Active Potassium Chloride ER 8 MEQ 1 capsule wi th food Orally daily; Duration: 30 days 01/28/2025 Active Augmentin 875-125 MG 1 tablet Orally marlon ry 12 hrs; Duration: 10 days 04/07/2025 Active Metoprolol Succinate ER 25 MG 1 tablet Orally Once a day; Duration: 90 days Active Ranolazine ER 1000 MG 1 tab(s) orally 2 times a day; Duration: 30 days Active Co Q-10 200 MG as directed Orally Active Vitamin D3 125 MCG (5000 UT) 1 tablet on the tongue and allow to dissolve Orally Once a day Active Aspirin 81 MG 1 tab(s) orally once a day Active Atorvastatin Calcium 40 MG 1 tablet Oral ly Once a day; Duration: 90 days Active Vital Signs Blood pressure systolic 128 mm Hg 04/07/20 25 Blood pressure diastolic 80 mm Hg 025 Heart Rate 68 /min 04/07/2025 Height 62 in 04/07/2025 Weight 105.4 lbs 04/07/2025 BMI 19.28 kg/m2 04/07/2025 Encounters Encounter Location Date Provider Diagnosis [facility] 36 [facility] [address] [place] [id number] 04/07/2025 Lien Reid Other specified disorders of gingiva and edentulous alveolar ridge K06.8 and Unspecified infectious disease B99.9 Assessments Encounter Date Diagnosis (ICD Code) Assessment Notes Treatment Notes Treatment Clinical Notes Section Notes 04/07/2025 Other specified disorders of gingiva and edentulous alveolar ridge (ICD-10 - K06.8) 04/07/2025 Unspecified infectious disease (ICD-10 - B99.9) Plan Of Treatment Medication Medication Name Sig Start Date Stop Date Notes Augmentin 875-125 MG 1 tablet Orally marlon ry 12 hrs; Duration: 10 days 04/07/2025 Next Appt Details Follow Up: with oral surgeon , Reason: Provider Name:Stewart Singer ry, 09/23/2025 01:30:00 PM, [address] [facility], [address], [place], [phone], Progress Notes * ROSHAN PYLEPARESHB:1955 (69 yo F)Acc No.[id number]:04/07/2025 Progress Notes Patient: COMPA SEPULVEDA Provider: SHERICE Cisneros :1955 A ge:69 Y S ex:Female Date:04/07/2025 Address:[address] [place] [address], [facility] Subjective: * Chief Complaints: * 1 . Poss infected gum area. * HPI: H PI: Patient is here today for P t states she has to get her teeth pulled 06/07. Pt states her gums are hurting on the left side under a bad tooth. Pt states she cannot eat or sleep. She called the dentist and they told her to see her PCP.. * ROS: D ERMATOLOGY: no R catarino. [...] dissolve Orally Once a day , Taking Atorvastatin Calcium 40 MG Tablet 1 tablet Orally Once a day , Taking Ezetimibe 10 MG Tablet 1 tab(s) orally once a day , Taking Metoprolol Succinate ER 25 MG Tablet Extended Release 24 Hour 1 tablet Orally Once a day , Taking Potassium Chloride ER 8 MEQ Capsule Extended Release 1 capsule with food Orally daily , Taking Ranolazine ER 1000 MG Tablet Extended Release 12 Hour 1 tab(s) orally 2 times a day , Medication List reviewed and reconciled with the patient * Allergies: L isinopril. Objective: * Vitals: W t: 105.4, Temp: 98.0, BP: 128/80, HR: 68, Nurse: pe, Ht: 62, BMI:19.28. * Examination: G eneral Examination: General Appearance: N AD. O ral cavity: l eft lower molar cracked, the gums are swollen and very tender on the lower left, there is some cervical adenopathy. C hest: n ormal shape and expansion. H eart: R SR. L ungs: c lear to auscultation. Assessment: * Assessment: 1. O ther specified disorders of gingiva and edentulous alveolar ridge - K06.8 (Primary) ? 2 . U nspecified infectious disease - B99.9 Plan: * Treatment: * Procedure Codes: G 2211 Complex e/m visit add on, 1036F TOBACCO NON-USER, G8783 BP SCR PRFRM RCMDD DEFIND SCR INTVL, G8752 MOST RECENT SYSTOLIC BP < 140MM HG, G8754 MOST RECENT DIASTOLIC BP < 90MM HG * Follow Up: w ith oral surgeon * Images: Billing Information: * Visit Code: 38566 Office Visit, Est Pt., Level 3. * Procedure Codes: G2211 Complex e/m visit add on. 1036F TOBACCO NON-USER. G8783 BP SCR PRFRM RCMDD DEFIND SCR INTVL. G8752 MOST RECENT SYSTOLIC BP < 140MM HG. G8754 MOST RECENT DIASTOLIC BP < 90MM HG. * Electronic signature of SHERICE Rubi on 06/16/2025 at 04:39 PM EST Sign off status: Pending * Provider: SHERICE Cisneros Date: 0 04/07/2025 Generated for Cyndee mcgrath/Duncan/Brendaitting on: 08/16/2024 04:39 PM EST History and Physical Notes * HPI (History of Present Illness) Category Sub-Category Detail Notes Category Not es HPI Patient is here today for Pt sta anabell she has to get her teeth pulled 06/07. Pt states her gums are hurting on the left side under a bad tooth. Pt states she cannot eat or sleep. She called the dentist and they told her to see her PCP. Examination Category Sub-Category Detail Notes Category Not es General Examination Heart: RSR Lungs: clear to auscultatio n General Appearance: NAD Oral cavity: left lower molar sealer aircraft cked, the gums are swollen and very tender on the lower left, there is some cervical adenopathy Chest: normal shape and exp ansion
--- OUTSIDE RECORDS SUMMARY | 2025-04-22 08:45 | XMS_ITS ---
Author Organization [facility] Address [address] [facility] [address] [place] [id number] Care Team Providers Care Building Maintenance Custodian Name Role Phone Stewart Lanza Unavailable [phone] Allergies Allergen (clinical drug ingredient) Drug/Non Drug Allergy documented on EMR Reaction Allergy Type Onset Date Status lisinopril Lisinopril Unknown Drug Allergy Activ e Results Component Value Reference Range Notes P-Basic Metabolic Panel (BMP ) Reviewed date:04/25/2025 05:32:57 PM Interpretation:Normal Performing Lab: Notes/Report: Test performed by [facility] [address] [place] [address] , [address], [place] [address] Joey Rock MD, Salesperson Women'S Dresses CLIA: [id number] Sodium 148 135-145 mmol/L Potassium 3.7 3.5-5.3 mmol/L Chloride 105 97-108 mmol/L CO2 28 20-32 mmol/L Glucose 76 65-99 mg/dL BUN 10 8-23 mg/dL Creatinine 0.70 0.50-1.00 mg/dL Calcium 9.5 8.6-10.4 mg/dL eGFR by Creatinine 93 >59 mL/min/1.73m2 REASON FOR VISIT 2 month f/u Medications Medication SIG (Take, Route, Frequency, Duration) Notes Start Date End Date Status Ezetimibe 10 MG 1 tab(s) orally once a day; Duration: 90 days Active Atorvastatin Calcium 40 MG 1 tablet Oral ly Once a day; Duration: 90 days Active Metoprolol Succinate ER 25 MG 1 tablet Orally Once a day; Duration: 90 days Active Vitamin D3 125 MCG (5000 UT) 1 tablet on the tongue and allow to dissolve Orally Once a day Active Aspirin 81 MG 1 tab(s) orally once a day Active Co Q-10 200 MG as directed Orally Active Ranolazine ER 1000 MG Take 1 tablet by m outh twice daily; Duration: 30 Active Immunizations Vaccine Route Administration Date Status Comme nts Fluzone High Dose (65yr and older) IM Intramuscular 04/22/2025 Administered PNEUMOVAX 23 VACCINE IM Intramuscular 04/22/2025 Administe red Vital Signs Blood pressure systolic 130 mm Hg 04/22/20 25 Blood pressure diastolic 76 mm Hg 025 Heart Rate 72 /min 04/22/2025 Height 62 in 04/22/2025 Weight 104.8 lbs 04/22/2025 BMI 19.17 kg/m2 04/22/2025 Encounters Encounter Location Date Provider Diagnosis [facility] 1210 [facility] 36 [facility] [address] [place] [phone] 04/22/2025 Stewart Lanza Hypokalemia E87.6 an d Encounter for immunization Z23 Assessments Encounter Date Diagnosis (ICD Code) Assessment Notes Treatment Notes Treatment Clinical Notes Section Notes 04/22/2025 Hypokalemia (ICD-10 - E87.6) 04/22/2025 Encounter for immunization (ICD-10 - Z23) Plan Of Treatment Next Appt Details Follow Up: 5 Months, Reason: Provider Name:Stewart Singer , 09/23/2025 01:30:00 PM, 1210 [facility] 36 [facility], [address], [place], [id number], Progress Notes * ARABELLA PYLEB:1955 (69 yo F)Acc No.[id number]:04/22/2025 Progress Notes Patient: COMPA SEPULVEDA Provider: Julieta Lanza M.D. :1955 A ge:69 Y S ex:Female Date:04/22/2025 Address:[address] [place] [address], [facility] Subjective: * Chief Complaints: * 1 . 2 month f/u. * HPI: H PI: 69 year old female presents with c/o Patient is here today for?follow up on hypokalemia. She has had no further neurologic symptoms since her admission at [facility] in [place]. * ROS: D ERMATOLOGY: no R catarino. [...] 2 . * Hospitalization/Major Diagno stic Procedure: Edwardo kang Past Hospitalization. * Family History: Whitney churchill: alive, diagnosed [...] 1000 MG Tablet Extended Release 12 Hour Take 1 tablet by mouth twice daily , Discontinued Potassium Chloride ER 8 MEQ Capsule Extended Release 1 capsule with food Orally daily , Discontinued Augmentin 875-125 MG Tablet 1 tablet Orally every 12 hrs , Medication List reviewed and reconciled with the patient * Allergies: L isinopril. Objective: * Vitals: W t: 104.8, Temp: 98.2, BP: 130/76, HR: 72, Nurse: bailey, Ht: 62, BMI:19.17. * Examination: G eneral Examination: General Appearance: N AD. H eart: R SR. L ungs:?clear to auscultation. Assessment: * Assessment: 1. H ypokalemia - E87.6 (Primary) 2 . E ncounter for immunization - Z23? Plan: * Treatment: Value Reference Range B UN 10 8-23 - mg/dL * C alcium 9.5 8.6-10.4 - mg/dL * C hloride 105 97-108 - mmol/L * C O2 28 20-32 - mmol/L * C reatinine 0.70 0.50-1.00 - mg/dL * G lucose 76 65-99 - mg/dL * P otassium 3.7 3.5-5.3 - mmol/L * S odium 148 H 135-145 - mmol/L * e GFR by Creatinine 93 >59 - mL/min/1.73m2 * Alexa Irwin 04/25/2025 05:32: 49 PM EDT > Pt notified * Immunizations: Fluzone High Dose (65yr and older) : 0.5 mL (Route: Intramuscular) given by BAILEY Sky on Left Arm (Encounter for immunization) PNEUMOVAX 23 VACCINE : 0.5 mL (Route: Intramuscular) given by BAILEY Sky on Right Arm (Encounter for immunization) * Procedure Codes: G 2211 Complex e/m visit add on, 1036F TOBACCO NON-USER, 3075F SYST BP GE 130 - 139MM HG, 3078F DIAST BP < 80 MM HG * Follow Up: 5 Months * Images: Billing Information: * Visit Code: 94755 Office Visit, Est Pt., Level 3. * Procedure Codes: G2211 Complex e/m visit add on. 1036F TOBACCO NON-USER. 3075F SYST BP GE 130 - 139MM HG. 3078F DIAST BP < 80 MM HG. * Electronic signature of Alicia Lanza MD on 06/16/2025 at 04:38 PM EST Sign off status: Pending * Provider: Julieta Lanza M.D. Date: 0 04/22/2025 Generated for Cyndee mcgrath/Duncan/Tino on: 1 08/16/2024 04:38 PM EST History and Physical Notes * HPI (History of Present Illness) Category Sub-Category Detail Notes Category Not es HPI Patient is here today for follow up on hypokalemia. She has had no further neurologic symptoms since her admission at [facility] in [place] Examination Category Sub-Category Detail Notes Category Not es General Examination Heart: RSR Lungs: clear to auscultatio n General Appearance: NAD
--- OUTSIDE RECORDS SUMMARY | 2025-04-26 08:55 | XMS_ITS ---
Author [facility] [address] [facility] [address] [place] [phone] Care Team Providers Care Plsql Developer Name Role Phone Myla Stewart Unavailable [phone] Results Component Value Reference Range Notes Mammogram Reviewed date:05/27/2025 04:10:38 PM Interpretation:Negative, Annual F/U Performing Lab: Notes/Report: Negative, Annual F/U REASON FOR VISIT due col, kamran, dexa Encounters Encounter Location Date Provider Diagnosis [facility] [address] [place] [id number] 04/26/2025 Stewart Lanza Breast cancer screen ing Z12.31 and Encounter for screening for osteoporosis Z13.820 Assessments Encounter Date Diagnosis (ICD Code) Assessment Notes Treatment Notes Treatment Clinical Notes Section Notes 04/26/2025 Breast cancer screening (ICD-10 - Z12.31) 04/26/2025 Encounter for screening for osteoporosis (ICD-10 - Z13.820) Plan Of Treatment Next Appt Details Provider Name:Stewart Singer ry, 09/23/2025 01:30:00 PM, [address], [address], [place], [id number], Progress Notes * ESTHER PYLE:1955 (69 yo F)Acc No.[id number]:04/26/2025 Patient: ROSHAN SEPULVEDAA :1955 A ge:69 Y S ex:Female Address:[address] [facility], [place] [address] Subjective: * Chief Complaints: * D ue col, kamran, dexa * Medical History: * Surgical History: * Hospitalization/Major Diagno stic Procedure: * Medications: Objective: * Vitals: * Physical Examination: Assessment: * Assessment: 1. B reast cancer screening - Z12.31 (Primary) 2 . E ncounter for screening for osteoporosis - Z13.820 Plan: * Treatment: 2.?Encounter for screening for osteoporosis?Imaging: Bone density* Sofia Fields 04/29/2025 11:5 1:13 AM EDT >sent to [facility] * Procedure Codes: * true * Date: Generated for Cyndee mcgrath/Duncan/Brendaitting on: 08/16/2024 04:38 PM EST
--- OUTSIDE RECORDS SUMMARY | 2025-05-20 04:45 | XMS_ITS ---
Author Organization [facility] Address [address] [place] [phone] Care Team Providers Care Reproduction Technician Name Role Phone Stewart Lanza Unavailable [phone] Allergies Allergen (clinical drug ingredient) Drug/Non Drug Allergy documented on EMR Reaction Allergy Type Onset Date Status lisinopril Lisinopril Unknown Drug Allergy Activ e REASON FOR VISIT 6 months Encounters Encounter Location Date Provider Diagnosis [facility] 1210 [facility] 36 [facility] [address] [place] [phone] 05/20/2025 Stewart Lanza Plan Of Treatment Next Appt Details Provider Name:Stewart Singer ry, 09/23/2025 01:30:00 PM, [address], [address], [place], [place], [phone], Progress Notes * ROSHAN PYLEADOB:1955 (69 yo F)Acc No.[id number]:05/20/2025 Progress Notes Patient: COMPA SEPULVEDA Provider: Julieta Lanza M.D. :1955 A ge:69 Y S ex:Female Date:05/20/2025 Address:[address] [place], [place] [phone] Subjective: * Chief Complaints: * 1 . 6 months. * Medical History: C oronary Artery Disease, [...] Alcohol: yes, 1-2 Times A Year. * Allergies: L isinopril. Objective: * Vitals: Assessment: Plan: * Treatment: * Images: Billing Information: * Visit Code: * Procedure Codes: * Electronic signature of Alicia Lanza MD on 06/16/2025 at 04:37 PM EST Sign off status: Pending * Provider: Julieta Lanza M.D. Date: Generated for Cyndee mcgrath/Duncan/Tino on: 08/16/2024 04:37 PM EST
[2025-06-16 16:26] VITALS: BP 187/99; PULSE 76; RESP 18; TEMP 36.8; O2SAT 96
--- NOTE | 2025-06-16 16:28 | CT_ITS ---
PROCEDURE INFORMATION: Exam: CT Thoracic Spine Without Contrast Exam date and time: 06/16/2025 4:40 PM Age: 69 years old Clinical indication: Injury or trauma; Additional info: Trauma, critical injury suspected TECHNIQUE: Imaging protocol: Computed tomography of the thoracic spine without contrast. Radiation optimization: All CT scans at this facility use at least one of these dose optimization techniques: automated exposure control; mA and/or kV adjustment per patient size (includes targeted exams where dose is matched to clinical indication); or iterative reconstruction. COMPARISON: CT THORACIC SPINE WO CON 06/16/2025 4:40 PM FINDINGS: Bones/joints: There is preservation of vertebral alignment and vertebral body heights. Facet joints are aligned. No acute fracture. There is no significant osseous encroachment of the spinal canal or neural foraminal narrowing at any level. Soft tissues: Unremarkable. Lymph nodes: Calcified mediastinal and hilar lymph nodes suggest prior granulomatous exposure. IMPRESSION: No acute fracture. No traumatic subluxation.
--- NOTE | 2025-06-16 16:28 | CT_ITS ---
PROCEDURE INFORMATION: Exam: CTA Head With Contrast, Arteriography Exam date and time: 06/16/2025 4:47 PM Age: 69 years old Clinical indication: Injury or trauma; Additional info: Trauma, critical injury suspected TECHNIQUE: Imaging protocol: Computed tomographic angiography of the head with contrast. Exam focused on the arteries. 3D rendering (Not supervised by radiologist): MIP and/or 3D reconstructed images were created by the technologist. Radiation optimization: All CT scans at this facility use at least one of these dose optimization techniques: automated exposure control; mA and/or kV adjustment per patient size (includes targeted exams where dose is matched to clinical indication); or iterative reconstruction. Contrast material: ISOVUE 370; Contrast volume: 80 ml; Contrast route: INTRAVENOUS (IV); COMPARISON: CT HEAD/BRAIN WO CON 06/16/2025 4:36 PM FINDINGS: ANTERIOR CIRCULATION: Right internal carotid artery: Mild atherosclerotic changes in the right cavernous carotid without flow-limiting stenosis. Right middle cerebral artery: No occlusion or significant stenosis. No aneurysm. Right anterior cerebral artery: No occlusion or significant stenosis. No aneurysm. Left internal carotid artery: Mild atherosclerotic changes in the left cavernous carotid without flow-limiting stenosis. Left middle cerebral artery: No occlusion or significant stenosis. No aneurysm. Left anterior cerebral artery: No occlusion or significant stenosis. No aneurysm. POSTERIOR CIRCULATION: Right vertebral artery: Multifocal irregularities along the right vertebral artery. Left vertebral artery: Multifocal irregularities along the left vertebral artery Basilar artery: No occlusion or significant stenosis. No aneurysm. Right posterior cerebral artery: No occlusion or significant stenosis. No aneurysm. Left posterior cerebral artery: No occlusion or significant stenosis. No aneurysm. Brain: No definite mass, mass effect, or midline shift. Cerebral ventricles: No ventriculomegaly. Bones/joints: Unremarkable. No acute fracture. Soft tissues: Unremarkable. IMPRESSION: Diffuse atherosclerotic changes involving cavernous carotids in intracranial segments of vertebral arteries. No large vessel occlusion PROCEDURE INFORMATION: Exam: CTA Neck With Contrast Exam date and time: 06/16/2025 4:47 PM Age: 69 years old Clinical indication: Injury or trauma; Additional info: Trauma, critical injury suspected TECHNIQUE: Imaging protocol: Computed tomographic angiography of the neck with contrast. Exam focused on the cervical segments of the vasculature. 3D rendering (Not supervised by radiologist): MIP and/or 3D reconstructed images were created by the technologist. Radiation optimization: All CT scans at this facility use at least one of these dose optimization techniques: automated exposure control; mA and/or kV adjustment per patient size (includes targeted exams where dose is matched to clinical indication); or iterative reconstruction. COMPARISON: CT ANGIO NECK 01/27/2025 9:29 PM FINDINGS: Right common carotid artery: No stenosis. No dissection or occlusion. Right internal carotid artery: Mild atherosclerotic changes contribute to less than 50% stenosis by NASCET criteria at the origin of right internal carotid artery. Right external carotid artery: No occlusion or stenosis of the origin. Left common carotid artery: No stenosis. No dissection or occlusion. Left internal carotid artery: Status post left internal carotid artery endarterectomy. Left internal carotid artery is patent. No significant stenosis. Left external carotid artery: No occlusion or stenosis of the origin. Right vertebral artery: No stenosis. No dissection or occlusion. Left vertebral artery: Abrupt change in caliber along the left vertebral artery, could reflect an underlying non flow-limiting dissection (7/292-303). Soft tissues: Normal. No significant soft tissue swelling. Bones/joints: No acute fracture. IMPRESSION: Abrupt change in caliber along the left vertebral artery, could reflect an underlying non flow-limiting dissection (7/292-303). REFERENCES: NASCET CRITERIA. The degree of stenosis in the cervical segment of the internal carotid artery is based on NASCET criteria. Normal is no stenosis. Mild is less than 50% stenosis. Moderate is 50-69% stenosis. Severe is 70% to 99% stenosis. Total occlusion is no detectable patent lumen.
--- NOTE | 2025-06-16 16:28 | CT_ITS ---
PROCEDURE INFORMATION: Exam: CT Head Without Contrast Exam date and time: 06/16/2025 4:36 PM Age: 69 years old Clinical indication: Injury or trauma; Additional info: Trauma, fall off ladder TECHNIQUE: Imaging protocol: Computed tomography of the head without contrast. Radiation optimization: All CT scans at this facility use at least one of these dose optimization techniques: automated exposure control; mA and/or kV adjustment per patient size (includes targeted exams where dose is matched to clinical indication); or iterative reconstruction. COMPARISON: CT HEAD/BRAIN WO CON 06/16/2025 4:36 PM FINDINGS: Brain: Curvilinear hyperdensity in the right frontal region is suspicious for subarachnoid hemorrhage (5/44). There are scattered hypodensities in the periventricular and subcortical white matter. The appearance is nonspecific, but most likely represents chronic small vessel disease in a person of this age. Cerebral ventricles: The ventricles, sulci and cisterns are normal in size and configuration. No hydrocephalus or midline structure shift Paranasal sinuses: Visualized sinuses are unremarkable. No fluid levels. Mastoid air cells: Status post bilateral mastoidectomies. Bilateral hearing aids noted.Photon starvation and streaky artifact from surgical hardware slightly obscures the assessment of the surrounding structures. Bones: Unremarkable. No acute fracture. Soft tissues: Unremarkable. IMPRESSION: Curvilinear hyperdensity in the right frontal region is suspicious for subarachnoid hemorrhage (5/44). No calvarial fracture. THIS REPORT CONTAINS FINDINGS THAT MAY BE CRITICAL TO PATIENT CARE. The findings were verbally communicated via telephone conference at 5:33 PM EST on 06/16/[address] Hagan. The findings were acknowledged and understood.
--- NOTE | 2025-06-16 16:28 | ECG_ITS ---
APPROVED REPORT Exam: Resting ECG HR:69 bpm ECG Measurements Heart Rate 69 AXES WI 176 P 75 QRSd 86 QRS 74 QT 451 T 71 QTc 469 Conclusion SINUS RHYTHM NORMAL ECG UNCONFIRMED REPORT Normal sinus rhythm. No ST elevation or depression. Electronically signed by : AMANDA SHAHID, 06/16/2025 20:12:56
--- NOTE | 2025-06-16 16:28 | CT_ITS ---
PROCEDURE INFORMATION: Exam: CT Cervical Spine Without Contrast Exam date and time: 06/16/2025 4:38 PM Age: 69 years old Clinical indication: Injury or trauma; Additional info: Trauma, critical injury suspected TECHNIQUE: Imaging protocol: Computed tomography of the cervical spine without contrast. Radiation optimization: All CT scans at this facility use at least one of these dose optimization techniques: automated exposure control; mA and/or kV adjustment per patient size (includes targeted exams where dose is matched to clinical indication); or iterative reconstruction. COMPARISON: CT CERVICAL SPINE WO CON 06/16/2025 4:38 PM FINDINGS: Bones: Vertebral alignment is maintained. There is preservation of vertebral body heights. Facet joints are aligned. Odontoid process is intact. Atlantoaxial interval maintained. No acute fracture. Uncovertebral and facet arthropathy result in varying degrees of neural foraminal narrowing at multiple levels. Mastoid air cells: Status post bilateral partial mastoidectomies. Lungs: Lung apices are normal. Soft tissues: Prevertebral and paravertebral soft tissues are maintained IMPRESSION: No acute fracture. No traumatic subluxation.
--- NOTE | 2025-06-16 16:28 | CT_ITS ---
PROCEDURE INFORMATION: Exam: CTA Chest With Contrast Exam date and time: 06/16/2025 4:50 PM Age: 69 years old Clinical indication: Injury or trauma; Additional info: Trauma, critical injury suspected TECHNIQUE: Imaging protocol: Computed tomographic angiography of the chest with contrast. Exam focused on the arteries. 3D rendering (Not supervised by radiologist): MIP and/or 3D reconstructed images were created by the technologist. Radiation optimization: All CT scans at this facility use at least one of these dose optimization techniques: automated exposure control; mA and/or kV adjustment per patient size (includes targeted exams where dose is matched to clinical indication); or iterative reconstruction. Contrast material: ISOVUE; Contrast volume: 80 ml; Contrast route: INTRAVENOUS (IV); COMPARISON: CT ANGIO CHEST 06/16/2025 4:50 PM FINDINGS: Pulmonary arteries: Normal. No pulmonary emboli. Aorta: Unremarkable. No aortic aneurysm. No aortic dissection. Other arteries: Hyperattenuating material in the coronary tree likely a combination of vascular stents and atherosclerosis. Lungs: Bibasilar subsegmental atelectasis noted. No evidence of consolidation or interlobular septal thickening. No pulmonary contusion or laceration. Pleural spaces: No pneumothorax. No pleural effusion. Heart: Unremarkable. No cardiomegaly. No pericardial effusion. Lymph nodes: Unremarkable. No enlarged lymph nodes. Intraperitoneal space: For findings in the abdomen and pelvis, please refer to the separately dictated abdomen and pelvis CT report under a separate accession number. Bones/joints: Healed right humeral shaft fracture. No acute osseous abnormality. Soft tissues: Unremarkable. IMPRESSION: 1. No pulmonary contusion or laceration. 2. No acute osseous abnormality
--- NOTE | 2025-06-16 16:28 | CT_ITS ---
PROCEDURE INFORMATION: Exam: CTA Neck With Contrast Exam date and time: 06/16/2025 4:47 PM Age: 69 years old Clinical indication: Injury or trauma; Additional info: Trauma, critical injury suspected TECHNIQUE: Imaging protocol: Computed tomographic angiography of the neck with contrast. Exam focused on the cervical segments of the vasculature. 3D rendering (Not supervised by radiologist): MIP and/or 3D reconstructed images were created by the technologist. Radiation optimization: All CT scans at this facility use at least one of these dose optimization techniques: automated exposure control; mA and/or kV adjustment per patient size (includes targeted exams where dose is matched to clinical indication); or iterative reconstruction. Contrast material: ISOVUE 370; Contrast volume: 80 ml; Contrast route: INTRAVENOUS (IV); COMPARISON: CT ANGIO NECK 01/27/2025 9:29 PM FINDINGS: Right common carotid artery: No stenosis. No dissection or occlusion. Right internal carotid artery: Mild atherosclerotic changes contribute to less than 50% stenosis by NASCET criteria at the origin of right internal carotid artery. Right external carotid artery: No occlusion or stenosis of the origin. Left common carotid artery: No stenosis. No dissection or occlusion. Left internal carotid artery: Status post left internal carotid artery endarterectomy. Left internal carotid artery is patent. No significant stenosis. Left external carotid artery: No occlusion or stenosis of the origin. Right vertebral artery: No stenosis. No dissection or occlusion. Left vertebral artery: Abrupt change in caliber along the left vertebral artery, could reflect an underlying non flow-limiting dissection (/[id number]). Soft tissues: Normal. No significant soft tissue swelling. Bones/joints: No acute fracture. IMPRESSION: Abrupt change in caliber along the left vertebral artery, could reflect an underlying non flow-limiting dissection (/[id number]). Critical findings were conveyed with Dr Dr. Hagan on 06/16/2025 L5 30 2:00 p.m. EST
--- NOTE | 2025-06-16 16:28 | CT_ITS ---
PROCEDURE INFORMATION: Exam: CT Lumbar Spine Without Contrast Exam date and time: 06/16/2025 4:42 PM Age: 69 years old Clinical indication: Injury or trauma; Additional info: Trauma, critical injury suspected TECHNIQUE: Imaging protocol: Computed tomography of the lumbar spine without contrast. Radiation optimization: All CT scans at this facility use at least one of these dose optimization techniques: automated exposure control; mA and/or kV adjustment per patient size (includes targeted exams where dose is matched to clinical indication); or iterative reconstruction. COMPARISON: CT LUMBAR SPINE WO CON 06/16/2025 4:42 PM FINDINGS: Bones/joints: There is preservation of vertebral alignment and vertebral body heights. Facet joints are aligned. No acute fracture. No significant central spinal canal stenosis or neural foraminal narrowing at any level. Sacroiliac joints are intact. Intraperitoneal space: For findings in the abdomen and pelvis, please refer to the separately dictated abdomen and pelvis CT report under a separate accession number. Soft tissues: Unremarkable. IMPRESSION: No acute fracture. No traumatic subluxation.
--- NOTE | 2025-06-16 16:28 | CT_ITS ---
PROCEDURE INFORMATION: Exam: CTA Abdomen and Pelvis With Contrast Exam date and time: 06/16/2025 4:50 PM Age: 69 years old Clinical indication: Injury or trauma; Additional info: Trauma, critical injury suspected TECHNIQUE: Imaging protocol: Computed tomographic angiography of the abdomen and pelvis with contrast. Exam focused on the arteries. 3D rendering (Not supervised by radiologist): MIP and/or 3D reconstructed images were created by the technologist. Radiation optimization: All CT scans at this facility use at least one of these dose optimization techniques: automated exposure control; mA and/or kV adjustment per patient size (includes targeted exams where dose is matched to clinical indication); or iterative reconstruction. Contrast material: ISOVUE; Contrast volume: 80 ml; Contrast route: INTRAVENOUS (IV); COMPARISON: CT BONY PELVIS 06/16/2025 4:45 PM FINDINGS: Aorta: The aorta demonstrates severe atherosclerotic calcification and ectasia. Celiac and mesenteric arteries: No occlusion or significant stenosis. Renal arteries: No occlusion or significant stenosis. Right iliac arteries: No occlusion or significant stenosis. Left iliac arteries: No occlusion or significant stenosis. Veins: Portal vein is patent. Liver: Subcentimeter hypodensity in the left hepatic lobe is too small to accurately characterize. Gallbladder and biliary ducts: Cholelithiasis noted without pericholecystic fluid/stranding. Pancreas: No peripancreatic fluid stranding. No main pancreatic ductal dilation. Spleen: No splenomegaly. Adrenal glands: The adrenal glands are normal. Kidneys and ureters: There is a simple cyst in the left kidney. Nephrograms are symmetric. No hydroureteronephrosis on either side. No solid lesions Stomach and bowel: No bowel wall thickening or distention. Appendix: A normal appendix is identified. Intraperitoneal space: Unremarkable. No free air. No significant fluid collection. Lymph nodes: No evidence of retroperitoneal or mesenteric lymphadenopathy. Urinary bladder: Urinary bladder is unremarkable. Reproductive: Status post hysterectomy. Bones/joints: No acute osseous abnormality. Soft tissues: Unremarkable. Other findings: For findings in the chest, please refer to the separately dictated chest CT report under a separate accession number. IMPRESSION: No acute abnormality in the abdomen or pelvis
--- NOTE | 2025-06-16 16:29 | CT_ITS ---
PROCEDURE INFORMATION: Exam: CT Pelvis Without Contrast, Skeleton Exam date and time: 06/16/2025 4:45 PM Age: 69 years old Clinical indication: Injury or trauma; Fall; Additional info: Trauma, critical injury suspected TECHNIQUE: Imaging protocol: Computed tomography of the pelvis without contrast. Exam focused on the skeleton. Radiation optimization: All CT scans at this facility use at least one of these dose optimization techniques: automated exposure control; mA and/or kV adjustment per patient size (includes targeted exams where dose is matched to clinical indication); or iterative reconstruction. COMPARISON: CT BONY PELVIS 06/16/2025 4:45 PM FINDINGS: Bones/joints: Sacroiliac joints are congruent. Pubic rami are intact. Femoral heads are unremarkable. No visible fracture or dislocation. Trochanteric regions are unremarkable. Soft tissues: Unremarkable. IMPRESSION: No visible fracture or dislocation.
--- NOTE | 2025-06-16 16:29 | PC.NURSE ---
radiology notified of stat scans
--- NOTE | 2025-06-16 16:31 | XR_ITS ---
PROCEDURE INFORMATION: Exam: XR Left Wrist Exam date and time: 06/16/2025 4:58 PM Age: 69 years old Clinical indication: Injury or trauma; Fall; Blunt trauma (contusions or hematomas); Wrist; Left; Additional info: Fall, left wrist laceration/swelling TECHNIQUE: Imaging protocol: Radiologic exam of the left wrist. Views: 1 or 2 views. COMPARISON: CR XR FOREARM LT 2V 06/16/2025 4:58 PM FINDINGS: Bones/joints: There is an acute mildly displaced fracture along the neck of the 1st metacarpal. There is mild buckling along the distal ulnar shaft. Correlate with point tenderness. Soft tissues: Normal. IMPRESSION: 1. There is an acute mildly displaced fracture along the neck of the 1st metacarpal. 2. There is mild buckling along the distal ulnar shaft. Correlate with point tenderness
--- NOTE | 2025-06-16 16:31 | XR_ITS ---
PROCEDURE INFORMATION: Exam: XR Pelvis Exam date and time: 06/16/2025 4:58 PM Age: 69 years old Clinical indication: Injury or trauma; Fall; Blunt trauma (contusions or hematomas); Does not apply; Pelvic region TECHNIQUE: Imaging protocol: Radiologic exam of the pelvis. Views: 1 or 2 view. COMPARISON: CT ANGIO ABD/PEL - TRAUMA 06/16/2025 4:50 PM FINDINGS: Bones/joints: Excreted contrast within the urinary bladder partially obscures the assessment of the sacral structures. No visible fracture or dislocation. Soft tissues: Unremarkable. IMPRESSION: No visible fracture or dislocation.
--- NOTE | 2025-06-16 16:31 | XR_ITS ---
PROCEDURE INFORMATION: Exam: XR Left Forearm Exam date and time: 06/16/2025 4:58 PM Age: 69 years old Clinical indication: Injury or trauma; Fall; Blunt trauma (contusions or hematomas); Arm, lower; Left; Additional info: Fall, left forearm laceration/wound TECHNIQUE: Imaging protocol: Radiologic exam of the left forearm. Views: 2 views. COMPARISON: CR XR WRIST LT 2V 06/16/2025 4:58 PM FINDINGS: Bones/joints: No visible fracture or dislocation in the ulnar and radial shaft. There is an acute mildly displaced fracture along the neck of the 1st metacarpal. Soft tissues: Normal. IMPRESSION: 1. No visible fracture or dislocation in the ulnar and radial shaft. 2. There is an acute mildly displaced fracture along the neck of the 1st metacarpal.
--- NOTE | 2025-06-16 16:31 | XR_ITS ---
PROCEDURE INFORMATION: Exam: XR Chest Exam date and time: 06/16/2025 4:58 PM Age: 69 years old Clinical indication: Injury or trauma; Fall; Blunt trauma (contusions or hematomas) TECHNIQUE: Imaging protocol: Radiologic exam of the chest. Views: 1 view. COMPARISON: CT ANGIO CHEST 06/16/2025 4:50 PM FINDINGS: Lungs: No evidence of pneumonia or interstitial edema. Pleural spaces: Unremarkable. No pleural effusion. No pneumothorax. Heart/Mediastinum: Unremarkable. No cardiomegaly. Bones/joints: No visible acute fracture. Healed right humeral shaft fracture. IMPRESSION: 1. No evidence of pneumonia or interstitial edema. 2. No visible acute fracture.
--- NOTE | 2025-06-16 16:36 | HMH.EDGENADL ---
Discharge Plan Disposition Patient Disposition: Xfer Other Prescriptions Prescriptions: No Action atorvastatin 40 mg tablet 40 mg PO DAILY Patient Comments: TAKE 1 TABLET BY MOUTH ONCE DAILY FOR 90 DAYS nitroglycerin 0.4 MG tablet, sublingual 0.4 mg PO Q5MINP PRN (Reason: Angina) aspirin 81 MG tablet,chewable 81 mg PO DAILY ezetimibe 10 tablet 10 mg PO DAILY Patient Comments: ranolazine 1,000 tablet extended release 12 hr 1,000 mg PO DAILY Patient Comments: Referrals Follow up/Referrals: Stewart Lanza MD [Primary Care Provider, Medical] - See instructions Clinical Impressions Clinical Impression: Traumatic subarachnoid hemorrhage, AMS (altered mental status), Dissecting hemorrhage of left vertebral artery Stand Alone Forms Stand Alone Forms: Transfer Record - ED Print Language Print Language: Lithuanian Discharge ED Provider: Krunal Hagan Adult HPI General Stated complaint: trauma alert Time Seen by Provider: 06/16/25 16:35 Mode of Arrival: Family Vehicle Source of Information: Relative History of Present Illness HPI narrative: Michelle Pyle is a 69y female with a past medical history of hearing impairment with cochlear implants, on daily aspirin but no other blood thinners, who presents POV by family vehicle. Patient is brought in by son. Reportedly, she was putting up [place] lights on a ladder and fell an unknown distance. He heard a thud and found her on the ground. He states that she has been in and out of consciousness since then. She has vomited twice since getting to the emergency department. Related Data Home Medications ?Medication ?Instructions ?Recorded ?Confirmed aspirin 81 mg chewable tablet 81 mg PO DAILY Heart disease 11/23/17 01/13/25 ezetimibe 10 mg tablet 10 mg PO DAILY Cholesterol 11/23/17 01/13/25 nitroglycerin 0.4 mg sublingual 0.4 mg PO Q5MINP PRN Angina 11/23/17 01/13/25 tablet ranolazine 1,000 mg 1,000 mg PO DAILY angina 11/23/17 01/13/25 tablet,extended release,12 hr atorvastatin 40 mg tablet 40 mg PO DAILY 04/15/24 01/13/25 Allergies Allergy/AdvReac Type Severity Reaction Status Date / Time atorvastatin (From LIPITOR) Allergy Mild Verified 01/13/25 10:16 lisinopril (LISINOPRIL) Allergy Mild Verified 01/13/25 10:16 morphine (MORPHINE) Allergy Unknown Verified 01/13/25 10:16 Opioids - Morphine Analogues Allergy Unknown Verified 01/13/25 10:16 (OPIOIDS - MORPHINE ANALOGUES) [facility] Disclaimer: The information contained in this section may have been updated after the patient was seen, as this information can be updated by other users. Medical History Lacrimal duct stenosis Blocked tear duct Blocked lacrimal duct Hyperlipidemia Hypertension Surgical History Hx of cardiac cath History of tonsillectomy Social History Smoking Status: Current every day smoker alcohol intake: never current occupational status: employed Travel in the last 8 weeks?: None Have you lived/traveled outside [place] in past 30 days?: No Contact w/someone who lives/traveled outside US past 30 days?: No Exposure to someone with infectious disease in past 14 days?: No Do you have a fever (greater than 100.4 F or 38 C)?: No Have you tested positive for COVID-19?: No Exposed to someone with COVID-19 in past 14 days?: No Do you have a sore throat?: No Do you have a cough?: No Do you have any weakness?: No Do you have any diarrhea?: No Are you experiencing any unusual bleeding?: No Do you have any muscle aches/pain?: No Do you have any abdominal pain?: No Are you experiencing loss of taste or smell?: No Other Medical History Have you received the Flu Vaccine for this season: No Have you received the Pneumonia Vaccine: No ROS Obtained: Yes unobtainable due to mental status Physical Exam General General appearance: alert Comment: Ill-appearing Head Head exam: atraumatic Eye Eye exam: Present normal appearance and PERRL (3 mm and reactive bilaterally) ENT ENT exam: Present normal external ear exam Neck Neck exam: Present other (Cervical collar placed but no step-offs or deformities or tenderness to the cervical spine) Chest Chest inspection: Present symmetric chest wall rise Respiratory Respiratory exam: Present normal lung sounds bilaterally (Breath sounds present bilaterally); Absent respiratory distress, wheezes or stridor Cardiovascular Cardiovascular exam: Present regular rate and normal rhythm Abdominal Exam Abdominal exam: Present soft; Absent distention, tenderness, guarding, rebound or rigidity Extremities Exam Extremities exam: Present normal inspection and other (Laceration and swelling to left wrist.) Back Exam Back exam: Present normal inspection; Absent vertebral tenderness (No thoracic or lumbar spine tenderness or step-offs) Neurological Exam Neurological exam: Present other (Will open eyes to verbal stimuli, incomprehensible sounds, localizes to pain. GCS of 10.) Skin Skin exam: Present warm and dry Medical Decision Making Medical Records Screening: Per USPSTF and CDC recommendations, given the prevalence of disease in our region, it is our hospital?s policy to screen for HIV and viral Hepatitis for all patients aged 18 and over and those with ongoing risk factors. David Inquiry Pt receiving controlled substance: No Vital Signs: 06/16/25 16:26 Temperature 98.2 F Temperature Source Oral Pulse Rate [Right] 76 Respiratory Rate 18 Blood Pressure [Right Arm] 187/99 H Blood Pressure Mean [Right Arm] 128 Blood Pressure Source [Right Arm] Automatic Cuff Blood Pressure Position [Right Arm] Sitting 02 Sat by Pulse Oximetry 96 Lab Data Lab Results 06/16/25 16:30: WBC 8.4, RBC 4.25, Hgb 12.9, Hct 37.9, MCV 89.2, MCH 30.4, MCHC 34.0, RDW 12.1, Plt Count 280, MPV 9.2, Neut % (Auto) 41.5, Lymph % (Auto) 44.5, [place] % (Auto) 10.0 H, Eos % (Auto) 3.0, Baso % (Auto) 0.8, Neut # (Auto) 3.5, Lymph # (Auto) 3.8, [place] # (Auto) 0.8, Eos # (Auto) 0.3, Baso # (Auto) 0.1, PT 11.1, INR 1.00, APTT 22.4 L, Sodium 139, Potassium 3.3 L, Chloride 103, Carbon Dioxide 28, Anion Gap 11.3, BUN 18 H, Creatinine 0.70, Estimated GFR 83, Est GFR ( Amer) 100, Glucose 120 H, Calcium 9.0, Total Bilirubin 0.8, AST 39 H, ALT 33, Alkaline Phosphatase 81, Troponin I < 0.01, Total Protein 7.2, Albumin 5.0, Globulin 2.2, Albumin/Globulin Ratio 2.3 H, Lipase 137 06/16/25 16:30 06/16/25 16:30 Orders (Tests/Meds): ED MEDICATIONS Discontinued Medications Generic Name Dose Route Start Last Admin Trade Name Freq PRN Reason Stop Dose Admin Iopamidol 160 ml 06/16/25 16:51 06/16/25 16:52 Iopamidol-370 (76%);100ml Bottle IV 06/16/25 16:52 160 ml ONCE ONE Administration Ondansetron HCl 4 mg 06/16/25 16:36 06/16/25 17:02 Ondansetron 4mg/2ml Vial IV 06/16/25 16:37 4 mg ONCE ONE Administration Sodium Chloride 80 ml 06/16/25 16:51 06/16/25 16:52 0.9 % Sodium Chloride 50 Ml Vial IV 06/16/25 16:52 80 ml ONCE ONE Administration Tetanus/Reduced Diphtheria/Acell Pertussis 0.5 ml 06/16/25 16:42 06/16/25 17:02 Tet/Diphth/Pert-Adult 0.5ml Syringe IM 06/16/25 16:43 0.5 ml .ONCE ONE Administration ORDERS Category Date Time Status CT angio abd/pel - TRAUMA Stat Cat Scan 06/16/25 16:[address] angio chest - dissection Stat Cat Scan 06/16/25 16:[address] angio head Stat Cat Scan 06/16/25 16:[address] angio neck Stat Cat Scan 06/16/25 16:[address] bony pelvis Stat Cat Scan 06/16/25 16:[address] cervical spine wo con Stat Cat Scan 06/16/25 16:[address] head/brain wo con Stat Cat Scan 06/16/25 16:[address] lumbar spine wo con Stat Cat Scan 06/16/25 16:[address] thoracic spine wo con Stat Cat Scan 06/16/25 16:28 Completed CXR --portable [XR chest portable] Stat Exams 06/16/25 16:31 Taken Forearm XR left 2 views [XR forearm LT 2V] Stat Exams 06/16/25 16:31 Taken POCUS Point of Care (ER Only) Stat Exams 06/16/25 16:34 Ordered POCUS Point of Care (ER Only) Stat Exams 06/16/25 16:58 Ordered Pelvis XR 1-2 views [XR pelvis 1-2V] Stat Exams 06/16/25 16:31 Completed Wrist XR left 2 views [XR wrist LT 2V] Stat Exams 06/16/25 16:31 Taken CBC w/Auto Diff [Complete Blood Count Auto Diff] Stat Lab 06/16/25 16:30 Completed CMP [Comprehensive Metabolic Panel] Stat Lab 06/16/25 16:30 Completed Lipase Stat Lab 06/16/25 16:30 Completed PT INR [Prothrombin Time INR] Stat Lab 06/16/25 16:30 Completed PTT [Activated Partial Thrombo Time] Stat Lab 06/16/25 16:30 Completed Trop I [Troponin I] Stat Lab 06/16/25 16:30 Completed Troponin I Q3H Lab 06/16/25 19:45 Ordered Troponin I Q3H Lab 06/16/25 22:45 Ordered UA [Urinalysis and Microscopic] Stat Lab 06/16/25 16:31 Ordered Medical Decision Narrative: Michelle Pyle is a 69y female with a past medical history of hearing impairment with cochlear implants, on daily aspirin but no other blood thinners, who presents POV by family vehicle. Patient is brought in by son. Reportedly, she was putting up [place] lights on a ladder and fell an unknown distance. He heard a thud and found her on the ground. He states that she has been in and out of consciousness since then. She has vomited twice since getting to the emergency department. On arrival, patient blood pressure was 149/89, heart rate 80 bpm, GCS 10. Oxygen saturation 96% on room air. She was put on end-tidal capnography and is maintaining CO2 at around 40. maintaining airway and breathing spontaneously. Primary assessment shows bilateral breath sounds. She withdraw to pain in all extremities. She will make incomprehensible sounds, however she does not have her cochlear implants and some of her decreased mental status could be from hearing impairment. [id number] E-FAST was negative. Secondary assessment shows laceration to the left wrist. No abdominal swelling or tenderness. No deformities to the lower extremities. No step-off or tenderness to the cervical, thoracic or lumbar spine. Patient was placed in a cervical collar immediately upon arrival. Differential is broad and includes traumatic injury within the head such as epidural hematoma, subarachnoid hemorrhage, subdural hemorrhage, skull fracture, cervical spine, thoracic spine or lumbar spine injury, intrathoracic pathology such as pneumothorax, pulmonary contusion, blunt cardiac injury, pneumothorax, intra-abdominal pathology such as hollow viscus injury, traumatic pancreatitis, vascular injury, long bone fracture/dislocation, among others. The most morbid conditions were considered and workup was based on these. EKG shows a normal sinus rhythm. No ST elevation or depression. CT head was interpreted by me personally prior to official read. There is considerable artifact secondary to cochlear implants, however, there is hyperdensities in the right frontotemporal region bilateral frontotemporal regions likely represent subarachnoid hemorrhage and or contusion. Given this finding, and concern for traumatic subarachnoid hemorrhage the only trauma evaluation possibly neurosurgery. I did discuss patient's case with Farzana Cantu APRN at the [facility] transfer center who also spoke with Dr. De La Cruz with the trauma team who agreed to accept the patient to the [facility] for further management. I did discuss need for transfer with family and they are in agreement with this plan. Patient returned from scan and is still protecting her airway. Continues to be a GCS of 10-11. Chest x-ray was interpreted by me personally. No pneumothorax. Pelvis is stable and there is no evidence of pelvic fracture on my interpretation. Labs show no anemia, although hemoglobin is 12.9 and baseline appears to be 14.5. Mild hypokalemia at 3.3 but grossly unremarkable nonactionable. Glucose 120. Lipase normal at 137. CT imaging of the chest was interpreted by me personally. No pneumothorax. Mild aortic dissection. No large pulmonary contusions. Radiology report pending at this time. Left upper extremity x-rays interpreted by me personally. No displaced fractures or dislocations. Patient's initial troponin is less than 0.01. CT abdomen pelvis was interpreted by me personally prior to official radiology read. No acute intra-abdominal findings. Patient does appear to have calcifications within the gallbladder but no pericholecystic fluid or fat stranding. I received a call from radiology at approximately 1730 who stated that patient has a likely left vertebral artery dissection and confirmed a right frontal subarachnoid hemorrhage. We did reach back out to the [facility] to make them aware of this additional finding. Patient's blood pressure at this time is 159/81. No acute blood pressure interventions are indicated at this time. Flight crew arrived at approximately 1745 and patient was transported to [facility] for further management. On reassessment prior to discharge, patient was alert and had been communicating with family. She was able to tell me that she felt cold. Procedures Limited Ultrasound Indication:: Limited EFAST ultrasound Indication: Blunt trauma Views: LUQ, RUQ, Pelvis, Limited Cardiac, Limited Thoracic Interpretation: Peritoneal Free Fluid: Absent Pericardial effusion: Absent Right thoracic free Fluid: Absent Left thoracic Free Fluid: Absent Right lung pneumothorax: Absent Left Lung pneumothorax: Absent Impression: negative EFAST ultrasound Images were saved to permanent archive The study was technically adequate CPT 23816-94 (limited cardiac) 99079-06 (limited abdominal) 82928-44 (chest) This study was performed by me, and I personally interpreted all images/videos. Based on my clinical judgement, these images were adequate and did not necessitate further imaging. Critical Care Critical Care Time Critical Care Time: Yes Attestation: On 06/16/25, the high probability of a clinically significant, sudden or life threatening deterioration of the following system(s) required my full and direct attention, intervention and personal management. The time I documented below is in addition to time spent performing reported procedures but includes the following listed in this critical care notation. Total Time Total Critical Care Time: 45
--- OUTSIDE RECORDS SUMMARY | 2025-06-16 16:37 | XMS_ITS | Patient Health Record ---
[facility] Address [address] [facility] [address] [place] [id number] Care Team Providers Care Supervisor Modern Languages Name Role Phone Stewart Lanza Unavailable [phone] Lien Reid Unavailable [phone] Allergies Allergen (clinical drug ingredient) Drug/Non Drug Allergy documented on EMR Reaction Allergy Type Onset Date Status lisinopril Lisinopril Unknown Drug Allergy Activ e Results Component Value Reference Range Notes P-Comprehensive Metabolic Pa sahne (CMP) Reviewed date:11/19/2024 01:11:44 PM Interpretation: Normal Performing Lab: Notes/Report: CLIA: [id number] Joey Rock MD, Government Relations Manager [address] [facility] , [address], [place] [address] Test performed by [employer] Sodium 140 135-145 mmol/L Potassium 4.2 3.5-5.3 [...] Normal Performing Lab: Notes/Report: Test performed by [facility] [address] [place] [address] [place] [address] Joey Rock MD, Government Relations Manager CLIA: [id number] Vitamin D 25-Hydroxy 49.5 30.0-100.0 ng/mL Interpretation of Vitamin D 25 OH: < 20 ng/mL - Deficiency 20 - 29 ng/mL - Insufficiency 30 - 100 ng/mL - Sufficiency > 100 ng/mL - Super-therapeutic- toxicity may occur above this level. Clinical correlation required. P-Basic Metabolic Panel (BMP ) Reviewed date:02/22/2025 12:01:05 PM Interpretation:Normal Performing Lab: Notes/Report: CLIA: [id number] Joey Rock MD, Government Relations Manager [address] [place] [address] [place] [address] Test performed by [facility] Sodium 141 135-145 mmol/L Potassium 4.2 3.5-5.3 mmol/L Chloride 105 97-108 mmol/L CO2 25 20-32 mmol/L Glucose 94 65-99 mg/dL BUN 12 8-23 mg/dL Creatinine 0.73 0.50-1.00 mg/dL Calcium 9.8 8.6-10.4 mg/dL eGFR by Creatinine 88 >59 mL/min/1.73m2 Mammogram Reviewed date:05/27/2025 04:10:38 PM Interpretation:Negative, Annual F/U Performing Lab: Notes/Report: Negative, Annual F/U Bone density Reviewed date:06/08/2025 12:09:48 PM Interpretation:osteopenia l-spine and left hip, osteoporosis right hip Performing Lab: Notes/Report: osteopenia l-spine and left hip, osteoporosis right hip Bone density osteopenia l-spine a nd left hip, osteoporosis right hip CBC Venipuncture (in house) Reviewed date:09/16/2024 09:30:57 [...] date:09/22/2024 12:55:57 PM Interpretation:Normal Performing Lab: Notes/Report: CLIA: [id number] Joey Rock MD, Government Relations Manager [address] [place] [address] , [place] [address] Test performed by [facility] Sodium 141 135-145 mmol/L Potassium 4.0 3.5-5.3 [...] 0.5 <0.2-1.2 mg/dL A/G Ratio 1.8 1.1-2.5 S-G-Wpjxfbgv Protein (CRP) Reviewed date:09/22/2024 12:55:57 PM Interpretation:Normal Performing Lab: Notes/Report: CLIA: [id number] Joey Rock MD, Government Relations Manager [address] [place] [address] , [place] [address] Test performed by [facility] C-Reactive Protein (CRP) 0.04 <0.50 mg/dL P-Sed Rate (ESR) Reviewed date:09/22/2024 12:55:57 PM Interpretation:Normal Performing Lab: Notes/Report: Test performed by [facility] [address] [place] [address] , [place] [address] Joey Rock MD, Government Relations Manager CLIA: [id number] Erythrocyte Sedimentation Rate (ESR), Automated 9 <31 mm/hr P-TSH reflex to FT4 Reviewed date:09/22/2024 12:55:57 PM Interpretation:Normal Performing Lab: Notes/Report: Test performed by [facility] [address] [place] [address] , [address], [place] [address] Joey Rock MD, Government Relations Manager CLIA: [id number] TSH reflex to FT4 1.58 0.43-5.25 mU/L P-Vitamin D 25-Hydroxy Reviewed date:09/22/2024 12:55:57 PM Interpretation:Normal Performing Lab: Notes/Report: Test performed by [facility] [address] [place] [address] , [address], [place] [address] Joey Rcok MD, Government Relations Manager CLIA: [id number] Vitamin D 25-Hydroxy 54.7 30.0-100.0 ng/mL Interpretation [...] effusion P-Basic Metabolic Panel (BMP ) Reviewed date:04/25/2025 05:32:57 PM Interpretation:Normal Performing Lab: Notes/Report: CLIA: [id number] Joey Rock MD, Government Relations Manager [address] [place] [address] , [address], [place] [address] Test performed by [facility] Sodium 148 135-145 mmol/L Potassium 3.7 3.5-5.3 mmol/L Chloride 105 97-108 mmol/L CO2 28 20-32 mmol/L Glucose 76 65-99 mg/dL BUN 10 8-23 mg/dL Creatinine 0.70 0.50-1.00 mg/dL Calcium 9.5 8.6-10.4 mg/dL eGFR by Creatinine 93 >59 mL/min/1.73m2 Reason For Referral Diagnosis 1 Pain in right knee ( M25.561) Referral Organization [facility] Referring Provider First Name Stewart Referring Provider [...] once a day; Duration: 90 days Active Ranolazine ER 1000 MG Take 1 tablet by m outh twice daily; Duration: 30 Active Metoprolol Succinate ER 25 MG 1 tablet Orally Once a day; Duration: 90 days Active Immunizations Vaccine Route Administration Date Status Comme nts Tetanus Tdap-Adacel (over 7yrs) Unknown 12/04/2016 Administered Prevnar (PCV20) IM Intramuscular 06/19/2023 Administered PNEUMOVAX 23 VACCINE IM Intramuscular 04/22/2025 Administe red Hepatitis A (adult) Unknown 07/27/2018 Administered Fluzone PF Quad (6-35 months) Unknown 08/13/2019 Administered Fluzone PF Quad (6-35 months) Unknown 06/14/2022 Administered Fluzone High Dose (65yr and older) IM Intramuscular 06/19/2023 Administered Fluzone High Dose (65yr and older) IM Intramuscular 05/20/2024 Pending Fluzone High Dose (65yr and older) IM Intramuscular 04/22/2025 Administered COVID 19 Pfizer Unknown 09/23/2020 Administered COVID 19 Pfizer Unknown 10/13/2020 Administered COVID 19 Pfizer Unknown 05/11/2021 Administered Problems Problem Type SNOMED Code ICD Code Onset Dates Problem Status W/U Status Risk Notes Problem Vitamin D deficiency (65955270) Vitamin D deficiency (E55.9) Active confirmed Problem Adjustment disorder with mixed anxiety and depressed mood (068022092) Adjustment disorder with mixed anxiety and depressed mood (F43.23) Active confirmed Problem Atherosclerotic hear t 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 (650104946307432) Coronary artery disease involving prairie band coronary artery of prairie band heart without angina pectoris (I25.10) Active confirmed Problem Disorder of carotid artery (disorder) (926288673) Carotid artery disease without cerebral infarction (I77.9) Active confirmed Problem Pure hypercholesterolemia (200731125) Pure hypercholesterolemia (E78.00) Active confirmed Problem Cervical arthritis (834884699) Cervical arthritis (M47.812) Active confirmed Problem Primary hypertension (29288637) Primary hypertension (I10) Active confirmed Vital Signs Heart Rate 72 /min 04/22/2025 Blood pressure diastolic 76 mm Hg 04/22/2025 Height 62 in 04/22/2025 Blood pressure systolic 130 mm Hg 04/22/2025 Weight 104.8 lbs 04/22/2025 BMI 19.17 kg/m2 04/22/2025 Encounters Encounter Location Date Provider Diagnosis Keri [address] [facility] [address] [place] [id number] 09/15/2024 Stewart [place] Pain in right knee M 25.561 ; Weight loss R63.4 ; Vitamin D deficiency E55.9 and Coronary artery disease involving prairie band coronary artery of prairie band heart without angina pectoris I25.10 [facility] [address] [place] [id number] 11/18/2024 Stewart [place] Primary hypertension I10 ; Pure hypercholesterolemia E78.00 ; Vitamin D deficiency E55.9 ; Coronary artery disease involving prairie band coronary artery of prairie band heart without angina pectoris I25.10 ; Carotid artery disease without cerebral infarction I77.9 and BMI less than 19,adult Z68.1 [facility] [address] [place] [id number] 12/22/2024 Stewart [place] Chest wall pain R07. 89 ; Primary hypertension I10 and Body mass index (BMI) less than 19 Z68.1 [facility] [address] [place], [place] [id number] 01/28/2025 Stewart [place] Blurring of vision H 53.8 and Hypokalemia E87.6 [facility] [address] [facility] [address] [place] [id number] 02/18/2025 Stewart [place] Vertebral artery ane urysm I72.6 and Hypokalemia E87.6 [facility] [address] [place], [place] [id number] 04/07/2025 Lien [place] Other specified diso rders of gingiva and edentulous alveolar ridge K06.8 and Unspecified infectious disease B99.9 [facility] [address] [place], [place] [id number] 04/22/2025 Stewart [place] Hypokalemia E87.6 an d Encounter for immunization Z23 [facility] [address] [place], [place] [id number] 06/08/2025 Stewart [place] [facility] [address] [place], [place] [id number] 06/24/2024 Stewart [place] Pure hypercholestero lemia E78.00 [facility] [address] [place], [place] [id number] 07/15/2024 Stewart [place] Primary hypertension I10 [facility] [address] [place], [place] [id number] 09/16/2024 Stewart [place] [facility] [address] [place], [place] [id number] 02/07/2025 Stewart [place] [facility] [address] [place] [id number] 03/07/2025 Stewart [place] [facility] [address] [place] [id number] 03/08/2025 Steawrt [place] [facility] [address] [place], [place] [id number] 04/26/2025 Stewart [place] Breast cancer screen ing Z12.31 and Encounter [...] E55.9) 11/18/2024 Coronary artery dise ase involving prairie band coronary artery of prairie band heart without angina pectoris (ICD-10 - I25.10) 09/15/2024 Coronary artery dise ase involving prairie band coronary artery of prairie band heart without angina pectoris (ICD-10 - I25.10) 11/18/2024 Carotid artery disea se without cerebral infarction (ICD-10 - I77.9) 11/18/2024 BMI less than 19,jacquie lt (ICD-10 - Z68.1) Plan Of Treatment Next Appt Details Provider Name:Stewart Mackenzierasheeda doran, 09/23/2025 01:30:00 PM, [address], [place], [id number], Insurance Providers Payer Name Payer Address Payer Phone Subscriber Number Group Number Insured Name Patient Relationship to Insured Coverage Start Date Coverage End Date MEDICARE PART [place] [address] [address] [place] [address] [id number] COMPA PYLE Self - patient is the insured MEDICA[employer] [address] [place] [id number] COMPA PYLE Self - patient is the [...]
--- OUTSIDE RECORDS SUMMARY | 2025-06-16 16:38 | XMS_ITS | Clinical Summary ---
Author Organization [employer] ([place], [place], [place], [place], [place]) Address [address] [place] [address] Care Team Providers Care Rn Case Mgr Name Role Phone Trupti Pelayo APRN Unavailable [phone] Kierra Roca MD Unavailable [phone] Stewart Lanza MD Primary Care Provider [phone] Allergies Active Allergy Reactions Criticality Noted Date [...] Date Clovis rded Speak language other than Namibian at home Not on file 08/29/2023 Want [...] Advance Directives For more information, please contact: [phone] * Full Code (Latest Code Status on [...] 11:00 PM 10/04/2023 12:45 AM Care Teams Rn Case Mgr Relationship Specialty Start Date End Date Stewart Lanza MD [address] [facility] [address] [place], [place] [address] PCP - General Family Medicine 06/13/23 Trupti Pelayo APRN [address] [facility] [address] [place] [address] Cardiology 04/08/23 Kierra Roca MD [address] [facility] [place] [address] Interventional Cardiology 04/08/23
--- OUTSIDE RECORDS SUMMARY | 2025-06-16 16:38 | XMS_ITS | Referral Summary ---
Author Organization [employer] ([place], [place], [place], [place], [place]) Address [address] [place] [address] Care Team Providers Care Rolling Down Machine Operator Name Role Phone Trupti Pelayo APRN Unavailable [phone] Kierra Roca MD Unavailable [phone] Stewart Lanza MD Primary Care Provider [phone] Allergies Active Allergy Reactions Criticality Noted Date [...] Date Clovis rded Speak language other than Cameroonian at home Not on file 08/29/2023 Want [...] Advance Directives For more information, please contact: [phone] * Full Code (Latest Code Status on [...] 11:00 PM 10/04/2023 12:45 AM Care Teams Rolling Down Machine Operator Relationship Specialty Start Date End Date Stewart Lanza MD [address] [facility] [address] [place] [address] PCP - General Family Medicine 06/13/23 Trupti Pelayo APRN [address] [facility] [address] [place] [address] Cardiology 04/08/23 Kierra Roca MD [address] [facility] [address] [place] [address] Interventional Cardiology 04/08/23
--- OUTSIDE RECORDS SUMMARY | 2025-06-16 16:40 | XMS_ITS | Encounter Summary ---
Author Organization [employer] ([place], [place], [place], [place], [place]) Address [address] [place] [address] Care Team Providers Care De Alcholizer Name Role Phone Shashi Harrell MD Primary Care Provider [phone] Trupti Pelayo APRN Unavailable [phone] Kierra Roca MD Unavailable [phone] Stewart Lanza MD Primary Care Provider [phone] Encounter Details Date Type Department Care Team (Late st Contact Info) Description 01/23/2021 Transcribed Document [facility] Cardiology [address] [place] [address] Kierra Roca MD [address] [facility] [address] [place] [id number] Social History Tobacco Use Types Packs/Day Years [...] Normal study. 2. Ejection fraction is 83%. /[id number] Kierra Roca MD NMF/AQ / NMF / MODL /[id number] documented in this encounter Plan of Treatment Not on file documented as of this encounter Visit Diagnoses Not on filedocumented in this encounter Care Teams De Alcholizer Relationship Specialty Start Date End Date Shashi Harrell MD [address] [facility] [place] [address] PCP - General Family Medicine 04/08/23 06/12/23 Stewart Lanza MD [address] [facility] [address] [place] [address] PCP - General Family Medicine 06/13/23 Trupti Pelayo APRN [address] [facility] [address] [address] Cardiology 04/08/23 Kierra Roca MD [address] [facility] [address] [place] [address] Interventional Cardiology 04/08/23 documented as of this encounter
--- OUTSIDE RECORDS SUMMARY | 2025-06-16 16:40 | XMS_ITS | Clinical Summary ---
Author Organization [facility] Address [address] [place] [address] Care Team Providers Care Artificial Teeth Inspector Name Role Phone Stewart Lanza MD Primary Care Provider [phone] Allergies Active Allergy Reactions Criticality Noted Date [...] 2) 2004 [facility]-Breast Cancer Screening 02/27/2018 02/28/2016 [id number] Vaccine ( season) 2025 08/18/2023, 06/14/2022, 12/20/2021, [...] Antibody Negative Negative 05/14/2023 2:52 PM EDT [facility] Blood Venous blood specimen / Unknown Venipuncture / Unknown 05/14/2023 1:47 PM EDT 05/14/2023 2:00 PM EDT us Garth Garcia MD LAB BLOOD ORDERABLES Final Resul t [facility] [address] [place] [address] * Mammography Breast Screening Tomosynthesis Bilateral (02/28/2016 [...] femaleDate of Service: 02/28/2016 eferring Phy:[facility], [facility] [phone] FINAL ATTESTATION: By electronically signing this report, [...] femaleDate of Service: 02/28/2016 eferring Phy:Danielle Tomlinson, [facility]: [phone] Danielle Tomlinson MD Internal Medicine [address] [place] [address] FINAL REPORT PROCEDURE: Tomosynthesis Bilateral Screening - [...] on Mar 19 2016 4:09P Transcribed by: [facility] Mar 19 2016 4:09P Dictated by: JAROD KATZ M.D. on Mar 19 2016 4:09P Patient Name:Michelle Pyle : 1955 Age: 60 Gender: femaleDate of Service:02/28/2016 eferring Phy:Danielle Tomlinson MDAccount: [phone] Danielle Tomlinson MD Internal Medicine [address] [place] [address] FINAL REPORT PROCEDURE: Tomosynthesis Bilateral Screening - [...] 1955 Age: 60 Gender: femaleDate of Service:02/28/2016 [facility]:Danielle Tomlinson, [facility] [phone] FINAL ATTESTATION: By electronically signing this report, [...] Recently Relevant to Health Maintenance [place] [address] [place] Care Teams Artificial Teeth Inspector Relationship Specialty Start Date End Date Stewart Lanza MD [address] [place] [facility] PCP - General 10/28/24
--- NOTE | 2025-06-16 16:44 | PC.NURSE ---
[employer] contacted at this time for flight, waiting for call back
[2025-06-16 16:46] LABS: Hematocrit 37.9 % (37.0-47.0); Hemoglobin 12.9 g/dL (12.2-16.2); Immature Granulocytes % 0.2 %; Mean Corpuscular HGB Conc 34.0 g/dL (31.8-35.4); Mean Corpuscular Hemoglobin 30.4 pg (27.0-31.2); Mean Corpuscular Volume 89.2 fl (81-99); Nucleated Red Blood Cells % 0 %; Platelet Count 280 K/mm3 (142-424); Red Blood Count 4.25 M/mm3 (4.20-5.40); Red Cell Distribution Width-SD 39.4 fL; White Blood Count 8.4 K/mm3 (4.8-10.8)
[2025-06-16] MEDS: 0.9 % SODIUM CHLORIDE 50 ML VIAL 80 ML IV (16:52)
[2025-06-16] MEDS: IOPAMIDOL-370 (76%);100ML BOTTLE 160 ML IV (16:52)
--- NOTE | 2025-06-16 16:52 | PC.NURSE ---
on phone with at this time
[2025-06-16 16:53] LABS: Albumin Level 5.0 g/dl (3.5-5.0); Chloride 103 mmol/L (98-107); Potassium 3.3 mmoL/L (3.5-5.1); Sodium 139 mmol/L (136-145)
[2025-06-16 16:55] LABS: Alanine Aminotransferase 33 U/L (12-78); Blood Urea Nitrogen 18 mg/dl (7-17); Creatinine,Serum 0.70 mg/dl (0.52-1.04); Estimated Glomerular Filt Rate 83 ml/min (>60); GFR (African American) 100 ML/MIN (>60)
[2025-06-16 16:56] LABS: Albumin/Globulin Ratio 2.3 (1.1-1.8); Alkaline Phosphatase 81 U/L (38-126); Anion Gap 11.3 mEq/L (5-15); Aspartate Amino Transferase 39 U/L (14-36); Bilirubin,Total 0.8 mg/dl (0.2-1.3); Calcium 9.0 mg/dl (8.4-10.2); Carbon Dioxide 28 mmol/L (22.0-30.0); Globulin 2.2 g/dL (1.3-3.2); Glucose 120 mg/dl (74-100); Lipase 137 U/L (23-300); Total Protein,Serum 7.2 g/dl (6.3-8.2)
--- NOTE | 2025-06-16 16:59 | PC.NURSE ---
pt returned from CT scan; portable radiology at
[2025-06-16] MEDS: ONDANSETRON 4MG/2ML VIAL 4 MG IV (17:02)
[2025-06-16] MEDS: TET/DIPHTH/PERT-ADULT 0.5ML SYRINGE 0.5 ML IM (17:02)
[2025-06-16 17:11] LABS: Troponin I < 0.01 ng/ml (0.00-0.034)
--- NOTE | 2025-06-16 17:16 | PC.NURSE ---
Report called to Jenn Montaño RN at [facility]
--- NOTE | 2025-06-16 17:21 | PC.NURSE ---
1626 Pt arrives to room. C-collar applied. Family to bedside to provide history due to pt not having cochlear implants in place. 1627 Fast Exam negative 1628 Rectal tone intact [address] scanner
[2025-06-16 17:31] LABS: Activated Partial Thrombo Time 22.4 seconds (22.8-30.6); INR 1.00 (0.9-1.1); Prothrombin Time 11.1 seconds (10.1-12.5)
[2025-06-16 17:59] VITALS: BP 165/84; PULSE 74; RESP 18; TEMP 36.7; O2SAT 94
--- NOTE | 2025-06-16 17:59 | PC.NURSE ---
report given to [employer] crew.
== END 2025-06-16 17:59 | disposition other institution (70) ==
PROVIDERS: Emergency Provider Student in an Organized Health Care Education/Training Program; PCP Family Medicine
DX: S06.6X9A Traumatic subarachnoid hemorrhage with loss of consciousness of unspecified duration, initial encounter (principal); I77.74 Dissection of vertebral artery; R11.10 Vomiting, unspecified; W11.XXXA Fall on and from ladder, initial encounter
CPT/HCPCS: 70450; 70496; 70498; 71045; 71275; 72125; 72128; 72131; 72170; 72192; 73090; 73100; 74174; 80053; 83690; 84484; 85025; 85610; 85730; 90471; 90715; 93005; 96374; 99285; 99291; J2405; Q9967